=== PATIENT | male | born 1975 | race Hispanic/Latino ===

== ENCOUNTER 2021-12-09 12:25 | Emergency (ER) | payer SELFPAY ==
--- OUTSIDE RECORDS SUMMARY | 2021-12-09 12:36 | XMS REPORT | Continuity of Care Document ---
:1975 Author Organization [facility] t Address [address] [place] [address] [place] [id number] Care Team Providers Name Role Phone SHARPLESS Primary Care Physician Unavailable Radha Alejo RN Attending Clinician Slava oPllard MD Attending Clinician Beatriz Corona LVN Attending Clinician SLAVA POLLARD Attending Clinician Unavailable Marciano Matos MD Attending Clinician Chet Salas DOlor Attending Clinician Leah Meehan MD Attending Clinician Tamir Zuñiga MD Attending Clinician Carissa Betancourt MD Attending Clinician Lamar Randall CRNA Attending Clinician [phone] LJ CRAWFORD Attending Clinician Unavailable Sasha Mcmanus Attending Clinician Polly Leon MD Attending Clinician POLLY LEON Attending Clinician Unavailable Clinic-[facility], Care Transition Attending Clinician Unavailable Service/[place], Surgery C Attending Clinician Unavailable MARCIANO MATOS Attending Clinician Unavailable Lawson Murphy MD Attending Clinician Nakita Broussard DO Attending Clinician Ldiia Del Angel MD Attending Clinician Doctor Unassigned, [place] Attending Clinician Unavailable ADELE HORN Attending Clinician Unavailable Bro WOOD, Chrissy Nazario Attending Clinician Reggie Ryder MD Attending Clinician Brandon BADILLO, Adele Cotton Attending Clinician [phone] Tatiana Chinchilla MD Attending Clinician JONA ABEZ Attending Clinician Unavailable PERSON, SLAVA Admitting Clinician Unavailable Person Slava BADILLO Admitting Clinician MARCIANO MATOS Admitting Clinician Unavailable Marciano Matos MD Admitting Clinician ADELE HORN Admitting Clinician Unavailable Adele Horn MD Admitting Clinician [phone] JONA BAEZ Admitting Clinician Unavailable Problems Condition Condition Condition Status Onset Resolution Last Treating Co mments Source Name Details Category Date Date Treatment Clinician Date Choledocho Choledocho Disease Active U ziaers lithiasis lithiasis 8-03 ity of 00:00: [place] [facility] Cholecysti Cholecysti Disease Active U nivers tis, acute tis, acute 27 it y of 00:00: [place] 00 Medical Branch Coronary Coronary Disease Active Unive rs artery artery 4-11 ity of disease disease 00:00: [place] involving involving 00 Medi eunice coronary coronary Branch bypass bypass graft of graft of [place] heart with heart with angina angina pectoris pectoris Dyslipidem Dyslipidem Disease Active U nivers ia ia 4-11 ity of 00:00: [place] 00 Medical Branch Essential Essential Disease Active Uni vers hypertensi hypertensi 4-11 it y of on on 00:00: [place] 00 Medical Branch 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 Added automatic ally from request for surgery [id number] Tobacco Tobacco Disease Active Univers abuse abuse -22 ity of 00:00: [place] 00 Medical Branch Obesity Obesity Disease Active Univers (BMI (BMI 1-22 ity of 30-39.9) 30-39.9) 00:00: [place] 00 Medical Branch Type 2 Type 2 Disease Active Univers diabetes diabetes 1-22 ity of mellitus mellitus 00:00: [place] with other with other 00 Me dical specified specified Bran ch complicati complicati on on Unstable Unstable Disease Active Unive rs angina angina 1-22 ity of 00:00: [place] 00 Medical Branch Coronary Coronary Disease Active Unive rs artery artery 1-22 ity of disease disease 00:00: [place] involving involving 00 Medi eunice [place] Branch coronary coronary artery of artery of [place] heart with heart with unstable unstable angina angina pectoris pectoris Chest Chest Disease Active Overview: Univer s pain, pain, 1-21 Formattin ity of unspecifie unspecifie 00:00: g of this [place] d type d type 00 note Medical might be Branch different from the original. Added automatic ally from request for surgery [id number] Allergies, Adverse Reactions, Alerts Allergy Allergy Status Severity Reaction(s) Onset Inactive Treating Comm ents Source Name Type Date Date Clinician NO KNOWN Drug Active Univers ALLERGIE Class ity of S [facility] NO KNOWN Allergy Active [facility] Family History Family Member Diagnosis Comments Start Date Stop Date Source Maternal Uncle Diabetes [facility] Social History Social Habit Start Date Stop Date Quantity Comments Source History of Smokes tobacco University of tobacco use daily [facility] Alcohol intake 2021-09-28 2021-09-28 Ex-drinker [facility] 00:00:00 00:00:00 (finding) [facility] Exposure to 2021-09-12 2021-09-22 Not sure [facility] SARS-CoV-2 00:00:00 18:02:00 [facility] (event) [place] Tobacco use and 2021-05-31 2021-05-31 Smokeless tobacco Un iversity of exposure 00:00:00 00:00:00 non-user [facility] Tobacco Comment 2018-03-13 2018-03-13 PATIENT STATED Unive rsity of 00:00:00 00:00:00 WILL QUIT [facility] Sex [birth year] At [birth year] Universit y of 00:00:00 00:00:00 [facility] Smoking Status Start Date Stop Date Source Smokes tobacco daily 2021-05-31 00[facility]00:00 [facility] Ordered Filled Start Stop Current Ordering Indication Dosage Frequency Signature Comments Components Source Medication Medication Date Date Medication? Clinician (SIG) Name Name cyclobenzap Yes [id number] 5mg Take 1 Univers rine 5 mg 8-08 tablet by ity o f tablet 00:00: mouth in [place] the Medical morning Branch and 1 tablet at noon and 1 tablet in the evening. HYDROcodone Yes [id number] 1{tbl} Take 1 Un delfino -acetaminop 8-08 tablet by ity of hen 5-325 00:00: mouth [place] mg tablet 00 every 6 Medical (six) Branch hours as needed for Pain (scale 4-6). Indication s: acute pain cyclobenzap Yes [id number] 5mg Take 1 Univers rine 5 mg 8-08 tablet by ity o f tablet 00:00: mouth in [place] the Medical morning Branch and 1 tablet at noon and 1 tablet in the evening. HYDROcodone Yes [id number] 1{tbl} Take 1 Un [facility]elf[place] -acetaminop 8-08 tablet by ity of hen 5-325 00:00: mouth [place] mg tablet 00 every 6 Medical (six) Branch hours as needed for Pain (scale 4-6). Indication s: acute pain cyclobenzap 2022-0 Yes [id number] 5mg Take 1 Univers rine 5 mg 8-08 tablet by ity o f tablet 00:00: mouth in [place] 00 the Medical morning Branch and 1 tablet at noon and 1 tablet in the evening. HYDROcodone 2022-0 Yes [id number] 1{tbl} Take 1 Un [facility] -acetaminop 8-08 tablet by ity of hen 5-325 00:00: mouth [place] mg tablet 00 every 6 Medical (six) Branch hours as needed for Pain (scale 4-6). Indication s: acute pain cyclobenzap 2022-0 Yes [id number] 5mg Take 1 Univers rine 5 mg 8-08 tablet by ity o f tablet 00:00: mouth in [place] 00 the Medical morning Branch and 1 tablet at noon and 1 tablet in the evening. HYDROcodone 2022-0 Yes [id number] 1{tbl} Take 1 Un [facility]elf[facility] -acetaminop 8-08 tablet by ity of hen 5-325 00:00: mouth [place] mg tablet 00 every 6 Medical (six) Branch hours as needed for Pain (scale 4-6). Indication s: acute pain insulin NPH 2-0 Yes 12U inject 12 U nivers hum/reg 8-07 Units ity of insulin hm 16:51: under the [place] (NOVOLIN 38 skin 2 Medical 70/30 SC) (two) Branch times daily. pantoprazol 2022-0 Yes 40mg Take 40 mg Univers e 8-07 by mouth ity of (PROTONIX) 16:51: daily. [place] 40 mg EC 38 Medical tablet Branch gabapentin 2-0 Yes 600mg Take 600 Un d[place] 600 mg 8-07 mg by ity of tablet 16:51: mouth 2 [place] 38 (two) Medical times Branch daily. insulin NPH 2022-0 Yes 12U inject 12 U nivers hum/reg 8-07 Units ity of insulin hm 16:51: under the [place] (NOVOLIN 38 skin 2 Medical 70/30 SC) (two) Branch times daily. pantoprazol 2022-0 Yes 40mg Take 40 mg Univers e 8-07 by mouth ity of (PROTONIX) 16:51: daily. [place] 40 mg EC 38 Medical tablet Branch gabapentin 2022-0 Yes 600mg Take 600 Un [place] 600 mg 8-07 mg by ity of tablet 16:51: mouth 2 [place] 38 (two) Medical times Branch daily. insulin NPH 2021-0 Yes 12U inject 12 U nivers hum/reg 8-07 Units ity of insulin hm 16:51: under the [place] (NOVOLIN 38 skin 2 Medical 70/30 SC) (two) Branch times daily. pantoprazol 2021-0 Yes 40mg Take 40 mg Univers e 8-07 by mouth ity of (PROTONIX) 16:51: daily. [place] 40 mg EC 38 Medical tablet Branch gabapentin 2021-0 Yes 600mg Take 600 Un d[place] 600 mg 8-07 mg by ity of tablet 16:51: mouth 2 [place] 38 (two) Medical times Branch daily. insulin NPH 2021-0 Yes 12U inject 12 U nivers hum/reg 8-07 Units ity of insulin hm 16:51: under the [place] (NOVOLIN 38 skin 2 Medical 70/30 SC) (two) Branch times daily. pantoprazol 2021-0 Yes 40mg Take 40 mg Univers e 8-07 by mouth ity of (PROTONIX) 16:51: daily. [place] 40 mg EC 38 Medical tablet Branch gabapentin 2021-0 Yes 600mg Take 600 Un [place] 600 mg 8-07 mg by ity of tablet 16:51: mouth 2 [place] 38 (two) Medical times Branch daily. insulin NPH 2021-0 Yes 12U inject 12 U nivers hum/reg 8-07 Units ity of insulin hm 16:51: under the [place] (NOVOLIN 38 skin 2 Medical 70/30 SC) (two) Branch times daily. pantoprazol 2021-0 Yes 40mg Take 40 mg Univers e 8-07 by mouth ity of (PROTONIX) 16:51: daily. [place] 40 mg EC 38 Medical tablet Branch gabapentin 2021-0 Yes 600mg Take 600 Un d[place] 600 mg 8-07 mg by ity of tablet 16:51: mouth 2 [place] 38 (two) Medical times Branch daily. polyethylen 0 2021- No 17g 17 g, Univ ers e glycol 8-07 08-07 Oral, ity of 3350 powder 15:30: 15:14 ONCE, 1 [place] 17 g 00 :00 dose, On Medical 09/27/21 Branch at 1030, Routine acetaminoph 2021-0 Yes [id number] 500mg Take 1 Univers en 500 mg 8-07 tablet by ity o f tablet 00:00: mouth [place] 00 every 6 Medical (six) Branch hours as needed for Pain. cyclobenzap 2021-0 Yes [id number] 5mg Take 1 Univers rine 5 mg 8-07 tablet by ity o f tablet 00:00: mouth in [place] 00 the Medical morning Branch and 1 tablet at noon and 1 tablet in the evening. acetaminoph 2021-0 Yes [id number] 500mg Take 1 Univers en 500 mg 8-07 tablet by ity o f tablet 00:00: mouth [place] 00 every 6 Medical (six) Branch hours as needed for Pain. acetaminoph 2021-0 Yes [id number] 500mg Take 1 Univers en 500 mg 8-07 tablet by ity o f tablet 00:00: mouth [place] 00 every 6 Medical (six) Branch hours as needed for Pain. acetaminoph 2021-0 Yes [id number] 500mg Take 1 Univers en 500 mg 8-07 tablet by ity o f tablet 00:00: mouth [place] 00 every 6 Medical (six) Branch hours as needed for Pain. acetaminoph 2021-0 Yes [id number] 500mg Take 1 Univers en 500 mg 8-07 tablet by ity o f tablet 00:00: mouth [place] 00 every 6 Medical (six) Branch hours as needed for Pain. HYDROcodone 2021- Yes [id number] 1{tbl} Take 1 U nivers -acetaminop 8-07 08-15 tablet by it y of hen 5-325 00:00: 04:59 mouth [place] mg tablet 00 :00 every 6 Medical (six) Branch hours as needed for Pain (scale 4-6) for up to 7 days. Indication s: acute pain HYDROcodone 2021-0 2021- No 4647 1{tbl} Take 1 U nivers -acetaminop 8-07 08-08 tablet by it y of hen 5-325 00:00: 00:00 mouth [place] mg tablet 00 :00 every 6 Medical (six) Branch hours as needed for Pain (scale 4-6) for up to 7 days. Indication s: acute pain cyclobenzap 2021-2021- No [id number] 5mg Take 1 Univers rine 5 mg 8-07 08-08 tablet by ity of tablet 00:00: 00:00 mouth in [place] 00 :00 the Medical morning Branch and 1 tablet at noon and 1 tablet in the evening. lactated 202-0 Yes 1000mL at 75 Univer s ringers IV 8-05 mL/hr, ity of infusion 21:45: 1,000 mL, [place] 1,000 mL 00 IV Medical Infusion, Branch CONTINUOUS , Starting on Tue09/25/21 at 1645, Until Discontinu ed, Routine lactated 2021-0 202- No 1000mL at 75 Unive rs ringers IV 8-05 08-07 mL/hr, ity of infusion 21:45: 23:56 1,000 mL, [place] 1,000 mL 00 :40 IV Medical Infusion, Branch CONTINUOUS , Starting on Tue09/25/21 at 1645, Until Tue09/27/21 at 1856, Routine clopidogreL 2021-0 Yes 75mg 75 mg, Univ ers (PLAVIX) 75 8-05 Oral, ity of mg tablet 20:45: DAILY, [place] 75 mg 00 First dose Medical (after Branch last modificati on) on Tue09/25/21 at 1545, Until Discontinu ed, Routine clopidogreL 2021-0 2021- No 75mg 75 mg, Uni vers (PLAVIX) 75 8-05 08-07 Oral, ity of mg tablet 20:45: 23:56 DAILY, [place] 75 mg 00 :40 First dose Medical (after Branch last modificati on) on Tue09/25/21 at 1545, Until Discontinu ed, Routine D5W 0.45% 2021-0 Yes IV Univers NaCl 8-05 Infusion, ity of (1/2NS) 1 L 18:00: at 75 [place] + KCL 20 00 mL/hr, Medical mEq CONTINUOUS Branch , Starting on Tue09/25/21 at 1300, Until Discontinu ed, Routine D5W 0.45% 2-0 202- No IV Univers NaCl 8-05 08-05 Infusion, ity of (1/2NS) 1 L 18:00: 20:43 at 75 [place] + KCL 20 00 :52 mL/hr, Medical mEq CONTINUOUS Branch , Starting on Tue09/25/21 at 1300, Until Tue09/25/21 at 1543, Routine traMADoL 2021-0 Yes 50mg 50 mg, Univers (ULTRAM) 8-05 Oral, ity of tablet 50 16:47: Q6HPRN, [place] mg 13 Starting Medical on Tue09/25/21 at 1147, Until Discontinu ed, Routine, Pain (scale 7-10) traMADoL Yes 50mg 50 mg, Univers (ULTRAM) 09-25 Oral, ity of tablet 50 16:47: Q6HPRN, [place] mg 13 Starting Medical on Tue09/25/21 at 1147, Until Discontinu ed, Routine, Pain (scale 7-10) traMADoL 2021- No 50mg 50 mg, Univer s (ULTRAM) 09-25 08 Oral, ity of tablet 50 16:47: 23:56 Q6HPRN, [place] mg 13 :40 Starting Medical on Tue09/25/21 at 1147, Until 09/27/21 at 1856, Routine, Pain (scale 7-10) sugammadex 2021- No IV Push, Un [place] (BRIDION) 09-25 ONCE INTRA ity of injection 16:43: 17:00 PROCEDURE, [place] 00 :54 Starting Medical on Tue09/25/21 at 1143, Until Tue09/25/21 at 1200, Routine, Intra-op bupivacaine 2021- No PRN, Unive rs (preserv 09-25 Starting ity of free) 16:33: 17:19 on Tue [place] (SENSORCAIN 00 :59 09/25/21 at Med ical E MPF) 0.25 1133, Branch % (2.5 Until Tue mg/mL) 09/25/21 at injection 1219, Routine, Intra-op phenylephri 2021- No Slow IV Un delfino ne 09-25 Push, ONCE ity of (VAZCULEP) 16:30: 17:00 INTRA [place] injection 00 :54 PROCEDURE, Medi eunice Starting Branch on Tue09/25/21 at 1130, Until Tue09/25/21 at 1200, Routine, Intra-op HYDROmorphO 2021- No Intravenou Univers ne 09-25 s, ONCE ity of (DILAUDID) 14:47: 17:00 INTRA [place] injection 00 :54 PROCEDURE, Medi eunice Starting Branch on Tue09/25/21 at 0947, Until Tue09/25/21 at 1200, Routine, Intra-op ePHEDrine 2021- No Slow IV Univ ers 25 mg/5 mL 09-25 Push, ONCE it y of (5 mg/mL) 14:16: 17:00 INTRA [place] syringe 00 :54 PROCEDURE, Medica l Starting Branch on Tue09/25/21 at 0916, Until Tue09/25/21 at 1200, Routine, Intra-op ondansetron 2021- No Slow IV Un [place]ino (ZOFRAN 09-25 Push, ONCE ity o f (PF)) 14:14: 17:00 INTRA [place] injection 00 :54 PROCEDURE, Medi eunice Starting Branch on Tue09/25/21 at 0914, Until Tue09/25/21 at 1200, Routine, Intra-op dexamethaso 2021- No IV Push, U nivers ne 09-25 ONCE INTRA ity of (DECADRON 14:14: 17:00 PROCEDURE, [place] PHOSPHATE) 00 :54 Starting Medic al injection on Tue Branch 09/25/21 at 0914, Until Tue09/25/21 at 1200, Routine, Intra-op rocuronium 2021- No IV Push, Un [place] (ZEMURON) 09-25 ONCE INTRA ity of injection 14:02: 17:00 PROCEDURE, [place] 00 :54 Starting Medical on Tue Branch 09/25/21 at 0902, Until Tue09/25/21 at 1200, Routine, Intra-op pantoprazol 0 Yes 40mg 40 mg, Univ ers e 8-05 Oral, ity of (PROTONIX) 14:00: DAILY, [place] EC tablet 00 First dose Medi eunice 40 mg on Tue Branch 09/25/21 at 0900, Until Discontinu ed, Routine pantoprazol 2021-0 Yes 40mg 40 mg, Univ ers e 8-05 Oral, ity of (PROTONIX) 14:00: DAILY, [place] EC tablet 00 First dose Medi eunice 40 mg on Tue Branch 09/25/21 at 0900, Until Discontinu ed, Routine pantoprazol 2021- No 40mg 40 mg, Uni vers e 09-25 Oral, ity of (PROTONIX) 14:00: 23:56 DAILY, [place] EC tablet 00 :40 First dose Medi eunice 40 mg on Tue Branch 09/25/21 at 0900, Until Discontinu ed, Routine propofoL IV 2021- No Slow IV Un delf[place] infusion 09-25 Push, ONCE ity of 14:00: 17:00 INTRA [place] 00 :54 PROCEDURE, Medical Starting Branch on Tue09/25/21 at 0900, Until Tue09/25/21 at 1200, Routine, Intra-op lidocaine 2021- No Slow IV Univ ers 1% 09-25 Push, ONCE ity of (XYLOCAINE) 14:00: 17:00 INTRA [place] 100 mg/10 00 :54 PROCEDURE, Medi eunice mL (1 %) Starting Branch injection on Tue09/25/21 at 0900, Until Tue09/25/21 at 1200, Routine, Intra-op FENTanyl PF 2021- No Slow IV [place] (SUBLIMAZE 09-25 Push, ONCE it y of (PF)) 14:00: 17:00 INTRA [place] injection 00 :54 PROCEDURE, Medi eunice Starting Branch on Tue09/25/21 at 0900, Until Tue09/25/21 at 1200, Routine, Intra-op lactated 2021- No Intravenou Un d[place] ringers IV 09-25 s, ity of infusion 13:45: 17:00 CONTINUOUS [place] 00 :54 PRN, Medical Starting Branch on Tue09/25/21 at 0845, Until Tue09/25/21 at 1200, Routine, Intra-op midazolam 2021- No IV Push, Uni vers (VERSED) 09-25 ONCE INTRA ity of injection 13:45: 17:00 PROCEDURE, [place] 00 :54 Starting Medical on Tue Branch 09/25/21 at 0845, Until Tue09/25/21 at 1200, Routine, Intra-op magnesium 2021- No 2g 2 g, IV Univ ers sulfate in 09-24 Piggyback, it y of water 2 23:45: 02:54 Administer [place] gram/50 mL 00 :09 over 60 Medica l (4 %) Minutes, Branch infusion 2 ONCE, 1 g dose, On [place] 09/24/21 at 1845, Routine lactated 2021- No 1000mL at 100 [facility] ers ringers IV 09-24 08-05 mL/hr, ity of infusion 18:15: 16:46 1,000 mL, [place] 1,000 mL 00 :28 IV Medical Infusion, Branch CONTINUOUS , Starting on [place] 09/24/21 at 1315, Until Tue09/25/21 at 1146, Routine Indomethaci 2021- No PRN, [facility] n (INDOCIN) 09-24 Starting ity of suppository 16:35: 17:13 on [place] as 00 :24 09/24/21 at [facility] 1135, Branch Until Tue09/24/21 at 1213, Routine, Intra-op atorvastati Yes 80mg 80 mg, Univ ers n (LIPITOR) 09-24 Oral, QHS, it y of tablet 80 02:00: First dose [place] mg 00 on Tue [facility] 09/23/21 at Branch 2100, Until Discontinu ed, Routine atorvastati Yes 80mg 80 mg, Univ ers n (LIPITOR) 09-24 Oral, QHS, it y of tablet 80 02:00: First dose [place] mg 00 on Tue [facility] 09/23/21 at Branch 2100, Until Discontinu ed, Routine atorvastati 2021- No 80mg 80 mg, Uni vers n (LIPITOR) 09-24 08 Oral, QHS, i ty of tablet 80 02:00: 23:56 First dose [place] mg 00 :40 on Tue [facility] 09/23/21 at Branch 2100, Until Discontinu ed, Routine acetaminoph Yes 500mg 500 mg, Un delfino en 09-24 Oral, ity of (TYLENOL) 00:54: Q6HPRN, [place] tablet 500 19 Starting Medic al mg on Tue [place] 09/23/21 at 1954, Until Discontinu ed, Routine, Pain (scale 1-3) acetaminoph Yes 500mg 500 mg, Un delfino en 8-04 Oral, ity of (TYLENOL) 00:54: Q6HPRN, [place] tablet 500 19 Starting Medic al mg on Wed Branch 09/23/21 at 1954, Until Discontinu ed, Routine, Pain (scale 1-3) acetaminoph 2021-0 2021- No 500mg 500 mg, U nivers en 8 08-07 Oral, ity of (TYLENOL) 00:54: 23:56 Q6HPRN, [place] tablet 500 19 :40 Starting Medic al mg on Tue Branch 09/23/21 at 1954, Until 09/27/21 at 1856, Routine, Pain (scale 1-3) HYDROcodone 2021-0 Yes 1{tbl} 1 tablet, Univers -acetaminop 8-04 Oral, ity of hen (NORCO 00:53: Q6HPRN, [place] 5) 5-325 mg 59 Starting Medi eunice tablet 1 on Wed Branch tablet 09/23/21 at 1953, Until Discontinu ed, Routine, Pain (scale 4-6) HYDROcodone 2021-0 Yes 1{tbl} 1 tablet, Univers -acetaminop 8- Oral, ity of hen (NORCO 00:53: Q6HPRN, [place] 5) 5-325 mg 59 Starting Medi eunice tablet 1 on Wed Branch tablet 09/23/21 at 1953, Until Discontinu ed, Routine, Pain (scale 4-6) HYDROcodone 2021-2021- No 1{tbl} 1 tablet, Univers -acetaminop 8- 0807 Oral, ity of hen (NORCO 00:53: 23:56 Q6HPRN, [place] 5) 5-325 mg 59 :40 Starting Medi eunice tablet 1 on Wed Branch tablet 09/23/21 at 1953, Until 09/27/21 at 1856, Routine, Pain (scale 4-6) morpHINE (2 2021-0 Yes 4mg 4 mg, Slow Univers mg/mL) 8-03 IV Push, ity of injection 4 21:20: Q4HPRN, [place] mg 39 Starting Medical on Tue Branch 09/23/21 at 1620, Until Discontinu ed, Routine, Pain (scale 4-6), Pain (scale 7-10) morpHINE (2 2021-0 Yes 4mg 4 mg, Slow Univers mg/mL) 09-23 IV Push, ity of injection 4 21:20: Q4HPRN, [place] mg 39 Starting Medical on Tue [place] 09/23/21 at 1620, Until Discontinu ed, Routine, Pain (scale 4-6), Pain (scale 7-10) morpHINE (2 2021- No 4mg 4 mg, Slow Univers mg/mL) 09-23 IV Push, ity of injection 4 21:20: 23:56 Q4HPRN, [place] mg 39 :40 Starting Medical on Tue [place] 09/23/21 at 1620, Until 09/27/21 at 1856, Routine, Pain (scale 4-6), Pain (scale 7-10) aspirin 2021-0 Yes 81mg 81 mg, Univers chewable 09-23 Oral, ity of tablet 81 14:00: DAILY, [place] mg 00 First dose Medical on Tue [place] 09/23/21 at 0900, Until Discontinu ed, Routine spironolact 2021-0 Yes 12.5mg 12.5 mg, Univers one 09-23 Oral, ity of (ALDACTONE) 14:00: DAILY, [place] tablet 12.5 00 First dose Me dical mg on Tue09/23/21 at 0900, Until Discontinu ed, Routine aspirin 2021-0 Yes 243mg 243 mg, Univer s chewable 09-23 Oral, ity of tablet 243 14:00: DAILY, [place] mg 00 First dose Medical on Tue [place] 09/23/21 at 0900, Until Discontinu ed, Routine aspirin 2021-0 Yes 81mg 81 mg, Univers chewable 09-23 Oral, ity of tablet 81 14:00: DAILY, [place] mg 00 First dose Medical on Tue [place] 09/23/21 at 0900, Until Discontinu ed, Routine spironolact 2021-0 Yes 12.5mg 12.5 mg, Univers one 09-23 Oral, ity of (ALDACTONE) 14:00: DAILY, [place] tablet 12.5 00 First dose Me dical mg on Tue [place] 09/23/21 at 0900, Until Discontinu ed, Routine aspirin 2021-0 2021- No 81mg 81 mg, Univers chewable 09-23- Oral, ity of tablet 81 14:00: 23:56 DAILY, [place] mg 00 :40 First dose Medical on [facility] 09/23/21 at 0900, Until Discontinu ed, Routine spironolact 2021- No 12.5mg 12.5 mg, Univers one 09-23 Oral, ity of (ALDACTONE) 14:00: 23:56 DAILY, [place] tablet 12.5 00 :40 First dose Me dical mg on [facility] 09/23/21 at 0900, Until Discontinu ed, Routine gabapentin Yes 600mg 600 mg, Uni vers (NEURONTIN) 09-23 Oral, BID, it y of tablet 600 13:00: First dose [place] mg 00 on [facility] 09/23/21 at Branch 0800, Until Discontinu ed, Routine carvediloL Yes 3.125mg 3.125 mg, Univers (COREG) 09-23 Oral, BID ity of tablet 13:00: MEALS, [place] 3.125 mg 00 First dose Medic al on [facility] 09/23/21 at 0800, Until Discontinu ed, Routine gabapentin Yes 600mg 600 mg, Uni vers (NEURONTIN) 09-23 Oral, BID, it y of tablet 600 13:00: First dose [place] mg 00 on [facility] 09/23/21 at Branch 0800, Until Discontinu ed, Routine carvediloL Yes 3.125mg 3.125 mg, Univers (COREG) 09-23 Oral, BID ity of tablet 13:00: MEALS, [place] 3.125 mg 00 First dose Medic al on [facility] 09/23/21 at 0800, Until Discontinu ed, Routine gabapentin 2021- No 600mg 600 mg, Un delfino (NEURONTIN) 09-23 Oral, BID, i ty of tablet 600 13:00: 23:56 First dose [place] mg 00 :40 on [facility] 09/23/21 at Branch 0800, Until Discontinu ed, Routine carvediloL 2021- No 3.125mg 3.125 mg, Univers (COREG) 09-23 Oral, BID ity of tablet 13:00: 23:56 MEALS, [place] 3.125 mg 00 :40 First dose Medic al on [facility] 09/23/21 at 0800, Until Discontinu ed, Routine Sliding 2022-0 Yes Subcutaneo Univ ers Scale 8-03 us, Q6H, ity of Insulin - 11:00: First dose [place] Lispro 00 on Tue Medical (HumaLOG) + 09/23/21 at [facility] 0600, Testing Until Discontinu ed, Routine methocarbam 202-0 Yes 1000mg 1,000 mg, Univers oL 09-23 Intravenou ity of (ROBAXIN) 11:00: s, Q8H, [place] injection 00 First dose Medi eunice 1,000 mg on Tue Branch 09/23/21 at 0600, Until Discontinu ed, Routine Sliding 2021-0 Yes Subcutaneo Univ ers Scale 8-03 us, Q6H, ity of Insulin - 11:00: First dose [place] Lispro 00 on Tue Medical (HumaLOG) + 09/23/21 at [facility] 0600, Testing Until Discontinu ed, Routine methocarbam 0 Yes 1000mg 1,000 mg, Univers oL 09-23 Intravenou ity of (ROBAXIN) 11:00: s, Q8H, [place] injection 00 First dose Medi eunice 1,000 mg on Tue Branch 09/23/21 at 0600, Until Discontinu ed, Routine Sliding 2021-0 202- No Subcutaneo Uni vers Scale 09-23 08-07 us, Q6H, ity of Insulin - 11:00: 23:56 First dose [place] Lispro 00 :40 on Tue Medical (HumaLOG) + 09/23/21 at [facility] 0600, Testing Until Discontinu ed, Routine methocarbam 0 202- No 1000mg 1,000 mg, Univers oL 09-23 Intravenou ity of (ROBAXIN) 11:00: 23:56 s, Q8H, [place] 00 :40 First dose Medi eunice 1,000 mg on Tue Branch 09/23/21 at 0600, Until Discontinu ed, Routine acetaminoph 2021-0 2021- No 1000mg 1,000 mg, Univers en ADULT 09-23 IV ity of (OFIRMEV) 11:00: 00:54 Infusion, [place] injection 00 :42 at 400 Medical 1,000 mg mL/hr Branch Administer over 15 Minutes, Q8H, 3 doses, First dose on Tue09/23/21 at 0600, Last dose on Tue09/23/21 at 2200, Routine
Indicatio n: Perioperat cong Patient lactated 1000mL at 125 Univ ers ringers IV 09-23 0804 mL/hr, ity of infusion 08:00: 18:03 1,000 mL, [place] 1,000 mL 00 :04 IV Medical Infusion, Branch CONTINUOUS , Starting on Tue09/23/21 at 0300, Until Laurita 09/24/21 at 1303, Routine pantoprazol No 40mg 40 mg, Uni vers e 09-23 Slow IV ity of (PROTONIX) 07:45: 22:36 Push, [place] injection 00 :36 Q24H, 3 Medical 40 mg doses, Branch First dose on Tue09/23/21 at 0245, Last dose on Tue09/25/21 at 0245 glucagon Yes 1mg 1 mg, Univers (GLUCAGEN 09-23 Intramuscu ity of DIAGNOSTIC 07:34: lar, PRN, [place] KIT) 41 Starting Medical injection 1 on Tue Branch mg 09/23/21 at 0234, Until Discontinu ed, DOMINIQUE, Blood Glucose < or = 70 mg/dL and patient is unable to swallow or has mental changes. glucagon Yes 1mg 1 mg, Univers (GLUCAGEN 09-23 Intramuscu ity of DIAGNOSTIC 07:34: lar, PRN, [place] KIT) 41 Starting Medical injection 1 on Tue Branch mg 09/23/21 at 0234, Until Discontinu ed, DOMINIQUE, Blood Glucose < or = 70 mg/dL and patient is unable to swallow or has mental changes. glucagon 2021- No 1mg 1 mg, Univers (GLUCAGEN 09-23 0807 Intramuscu ity of DIAGNOSTIC 07:34: 23:56 lar, PRN, [place] KIT) 41 :40 Starting Medical injection 1 on Tue Branch mg 09/23/21 at 0234, Until 09/27/21 at 1856, DOMINIQUE, Blood Glucose < or = 70 mg/dL and patient is unable to swallow or has mental changes. dextrose 50 0 Yes 25mL 25 mL, Univ ers % in water 09-23 Slow IV ity of (D50W) 07:34: Push, PRN, [place] injection 40 Starting Medica l 25 mL on Wed Branch 09/23/21 at 0234, Until Discontinu ed, DOMINIQUE, Blood Glucose < or = 70 mg/dL and patient is unable to swallow or has mental status changes. dextrose 50 0 Yes 25mL 25 mL, Univ ers % in water 09-23 Slow IV ity of (D50W) 07:34: Push, PRN, [place] injection 40 Starting Medica l 25 mL on Wed Branch 09/23/21 at 0234, Until Discontinu ed, DOMINIQUE, Blood Glucose < or = 70 mg/dL and patient is unable to swallow or has mental status changes. dextrose 50 2021- No 25mL 25 mL, Uni vers % in water 09-23 Slow IV ity o f (D50W) 07:34: 23:56 Push, PRN, [place] injection 40 :40 Starting Medica l 25 mL on Wed Branch 09/23/21 at 0234, Until 09/27/21 at 1856, DOMINIQUE, Blood Glucose < or = 70 mg/dL and patient is unable to swallow or has mental status changes. pantoprazol 2021- No 40mg 40 mg, Uni vers e 09-23 Slow IV ity of (PROTONIX) 07:15: 16:26 Push, [place] injection 00 :00 Q24H, 3 Medical 40 mg doses, Branch First dose on Tue09/23/21 at 0215, Last dose on Tue09/25/21 at 0215 morpHINE (2 2021- No 2mg 2 mg, Slow Univers mg/mL) 09-23 IV Push, ity of injection 2 06:57: 21:20 Q4HPRN, [place] mg 38 :57 Starting Medical on Tue Branch 09/23/21 at 0157, Until Tue09/23/21 at 1620, Routine, Pain (scale 4-6) ondansetron Yes 4mg 4 mg, Slow Univers (ZOFRAN 8-03 IV Push, ity of (PF)) 06:56: Q6HPRN, [place] injection 4 51 Starting Medi eunice mg on Wed Branch 09/23/21 at 0156, Until Discontinu ed, Routine, Nausea and Vomiting (N/V) ondansetron 2-0 Yes 4mg 4 mg, Slow Univers (ZOFRAN 8-03 IV Push, ity of (PF)) 06:56: Q6HPRN, [place] injection 4 51 Starting Medi eunice mg on Wed Branch 09/23/21 at 0156, Until Discontinu ed, Routine, Nausea and Vomiting (N/V) ondansetron 2022-0 2022- No 4mg 4 mg, Slow Univers (ZOFRAN 8-03 08-07 IV Push, ity of (PF)) 06:56: 23:56 Q6HPRN, [place] injection 4 51 :40 Starting Medi eunice mg on Wed Branch 09/23/21 at 0156, Until 09/27/21 at 1856, Routine, Nausea and Vomiting (N/V) insulin NPH 2021-0 Yes 12U inject 12 U nivers hum/reg 8-03 Units ity of insulin hm 06:24: under the [place] (NOVOLIN 41 skin 2 Medical 70/30 SC) (two) Branch times daily. pantoprazol 2021-0 Yes 40mg Take 40 mg Univers e 8-03 by mouth ity of (PROTONIX) 06:24: daily. [place] 40 mg EC 41 Medical tablet Branch gabapentin 2021-0 Yes 600mg Take 600 Un delfino 600 mg 8-03 mg by ity of tablet 06:24: mouth 2 [place] 41 (two) Medical times Branch daily. insulin NPH 2-0 Yes 12U inject 12 U nivers hum/reg 8-03 Units ity of insulin hm 06:24: under the [place] (NOVOLIN 41 skin 2 Medical 70/30 SC) (two) Branch times daily. pantoprazol 2-0 Yes 40mg Take 40 mg Univers e 8-03 by mouth ity of (PROTONIX) 06:24: daily. [place] 40 mg EC 41 Medical tablet Branch gabapentin 2022-0 Yes 600mg Take 600 Un delfino 600 mg 8-03 mg by ity of tablet 06:24: mouth 2 [place] 41 (two) Medical times Branch daily. insulin NPH Yes 12U inject 12 U nivers hum/reg 8-03 Units ity of insulin hm 06:24: under the [place] (NOVOLIN 41 skin 2 Medical 70/30 SC) (two) Branch times daily. pantoprazol Yes 40mg Take 40 mg Univers e 03 by mouth ity of (PROTONIX) 06:24: daily. [place] 40 mg EC 41 Medical tablet Branch gabapentin Yes 600mg Take 600 Un delfino 600 mg 8-03 mg by ity of tablet 06:24: mouth 2 [place] 41 (two) Medical times Branch daily. NaCl 0.9% 2021- No 500mL at 999 Univ ers (NS) bolus 09-23 mL/hr, 500 it y of infusion 04:15: 04:00 mL, IV [place] 500 mL 00 :00 Infusion, Medical ONCE, 1 Branch dose, On Tue09/22/21 at 2315, STAT magnesium 2021- No 2g 2 g, IV Univ ers sulfate in 09-23 Piggyback, it y of water 2 01:15: 01:22 Administer [place] gram/50 mL 00 :00 over 60 Medica l (4 %) Minutes, Branch infusion 2 ONCE, 1 g dose, On Tue09/22/21 at 2015, Routine NaCl 0.9% 2021- No 500mL at 999 Univ ers (NS) bolus 09-23 mL/hr, 500 it y of infusion 01:00: 01:20 mL, IV [place] 500 mL 00 :00 Infusion, Medical ONCE, 1 Branch dose, On Tue09/22/21 at 1999, STAT nitroglycer 2021- No .4mg 0.4 mg, Un delfino in 09-23 Sublingual ity of (NITROSTAT) 01:00: 23:30 , ONCE, 1 [place] sublingual 00 :00 dose, On Medic al tablet 0.4 Tue09/22/21 Bra nch mg at 1999, DOMINIQUE ondansetron 2021- No 4mg 4 mg, Slow Univers (ZOFRAN 09-23 IV Push, ity of (PF)) 00:45: 23:40 ONCE, 1 [place] injection 4 00 :00 dose, On Medi eunice mg Tue09/22/21 Branch at 194, DOMINIQUE morpHINE (2 2021- No 4mg 4 mg, Slow Univers mg/mL) 09-23 IV Push, ity of injection 4 00:45: 23:40 ONCE, 1 [place] mg 00 :00 dose, On Medical Tue09/22/21 Branch at 194, STAT piperacilli 2021- No 3.375g 3.375 g, Univers n-tazobacta 09-23 IV ity of m (ZOSYN) 00:15: 01:16 Piggyback, [place] 3.375 g in 00 :48 ONCE, 1 Medica l NaCl 0.9% dose, On Branch (NS) 50 mL Tue09/22/21 MINI-BAG at 191, Administer over 30 Minutes, 50 mL
R francesca for Anti-Infec tive: Documented Infection< br>Documen nhi Infection Site: Abdominal< br>Duratio n of Therapy: Other (see Comments) acetaminoph 2021- No 1000mg 1,000 mg, Univers en 09-23 Oral, ity of (TYLENOL) 00:00: 00:42 ONCE, 1 [place] tablet 00 :00 dose, On Medical 1,000 mg Tue09/22/21 Branc h at 1900, DOMINIQUE insulin NPH Yes 12U inject 12 U nivers hum/reg 4-30 Units ity of insulin hm 12:17: under the [place] (NOVOLIN 07 skin 2 Medical 70/30 SC) (two) Branch times daily. pantoprazol Yes 40mg Take 40 mg Univers e 4-30 by mouth ity of (PROTONIX) 12:17: daily. [place] 40 mg EC 07 Medical tablet Branch gabapentin Yes 600mg Take 600 Un [place] 600 mg 4-30 mg by ity of tablet 12:17: mouth 2 [place] 07 (two) Medical times Branch daily. insulin NPH Yes 12U inject 12 U nivers hum/reg 4-30 Units ity of insulin hm 12:17: under the [place] (NOVOLIN 07 skin 2 Medical 70/30 SC) (two) Branch times daily. pantoprazol 2022-0 Yes 40mg Take 40 mg Univers e 4-30 by mouth ity of (PROTONIX) 12:17: daily. [place] 40 mg EC 07 Medical tablet Branch gabapentin 2022-0 Yes 600mg Take 600 Un [place] 600 mg 4-30 mg by ity of tablet 12:17: mouth 2 (two) Medical times Branch daily. insulin NPH 2022-0 Yes 12U inject 12 U nivers hum/reg 4-30 Units ity of insulin hm 12:17: under the [place] (NOVOLIN 07 skin 2 Medical 70/30 SC) (two) Branch times daily. pantoprazol 2022-0 Yes 40mg Take 40 mg Univers e 4-30 by mouth ity of (PROTONIX) 12:17: daily. [place] 40 mg EC 07 Medical tablet Branch gabapentin 2-0 Yes 600mg Take 600 Un [place] 600 mg 4-30 mg by ity of tablet 12:17: mouth 2 (two) Medical times Branch daily. insulin NPH 2022-0 Yes 12U inject 12 U nivers hum/reg 4-30 Units ity of insulin hm 12:17: under the [place] (NOVOLIN 07 skin 2 Medical 70/30 SC) (two) Branch times daily. pantoprazol 2022-0 Yes 40mg Take 40 mg Univers e 4-30 by mouth ity of (PROTONIX) 12:17: daily. [place] 40 mg EC 07 Medical tablet Branch gabapentin 2-0 Yes 600mg Take 600 Un [place] 600 mg 4-30 mg by ity of tablet 12:17: mouth 2 (two) Medical times Branch daily. insulin NPH 2022-0 Yes 12U inject 12 U nivers hum/reg 4-30 Units ity of insulin hm 12:17: under the [place] (NOVOLIN 07 skin 2 Medical 70/30 SC) (two) Branch times daily. pantoprazol 2022-0 Yes 40mg Take 40 mg Univers e 4-30 by mouth ity of (PROTONIX) 12:17: daily. [place] 40 mg EC 07 Medical tablet Branch gabapentin 2022-0 Yes 600mg Take 600 Un [place] 600 mg 4-30 mg by ity of tablet 12:17: mouth 2 (two) Medical times Branch daily. insulin NPH 2022-0 Yes 12U inject 12 U nivers hum/reg 4-30 Units ity of insulin hm 12:17: under the [place] (NOVOLIN 07 skin 2 Medical 70/30 SC) (two) Branch times daily. pantoprazol 2022-0 Yes 40mg Take 40 mg Univers e 4-30 by mouth ity of (PROTONIX) 12:17: daily. [place] 40 mg EC 07 Medical tablet Branch gabapentin 2021-0 Yes 600mg Take 600 Un [place] 600 mg 4-30 mg by ity of tablet 12:17: mouth 2 [place] 07 (two) Medical times Branch daily. insulin NPH 2021-0 Yes 12U inject 12 U nivers hum/reg 4-30 Units ity of insulin hm 12:17: under the [place] (NOVOLIN 07 skin 2 Medical 70/30 SC) (two) Branch times daily. pantoprazol 2022-0 Yes 40mg Take 40 mg Univers e 4-30 by mouth ity of (PROTONIX) 12:17: daily. [place] 40 mg EC 07 Medical tablet Branch gabapentin 2021-0 Yes 600mg Take 600 Un [place] 600 mg 4-30 mg by ity of tablet 12:17: mouth 2 [place] 07 (two) Medical times Branch daily. insulin NPH 2021-0 Yes 12U inject 12 U nivers hum/reg 4-30 Units ity of insulin hm 12:17: under the [place] (NOVOLIN 07 skin 2 Medical 70/30 SC) (two) Branch times daily. pantoprazol 2-0 Yes 40mg Take 40 mg Univers e 4-30 by mouth ity of (PROTONIX) 12:17: daily. [place] 40 mg EC 07 Medical tablet Branch gabapentin 2-0 Yes 600mg Take 600 Un [place] 600 mg 4-30 mg by ity of tablet 12:17: mouth 2 [place] 07 (two) Medical times Branch daily. acetaminoph 2021-0 2021- No [id number] 650mg Take 2 Univers en 325 mg 4-30 05-11 tablets by ity of tablet 00:00: 04:59 mouth [place] 00 :00 every 6 Medical (six) Branch hours as needed for Pain (scale 1-3) for up to 10 days. acetaminoph 202-0 2021- No [id number] 650mg Take 2 Univers en 325 mg 4-30 05-11 tablets by ity of tablet 00:00: 04:59 mouth [place] 00 :00 every 6 Medical (six) Branch hours as needed for Pain (scale 1-3) for up to 10 days. amoxicillin 2021- No [id number] 1{tbl} Take 1 Univers -clavulanat 4-30 05-05 tablet by it y of e 875-125 00:00: 04:59 mouth [place] mg per 00 :00 every 12 Medical tablet (twelve) Branch hours for 4 days. amoxicillin 2021- No [id number] 1{tbl} Take 1 Univers -clavulanat 4-30 05-05 tablet by it y of e 875-125 00:00: 04:59 mouth [place] mg per 00 :00 every 12 Medical tablet (twelve) Branch hours for 4 days. aspirin 81 2021- No [id number] 81mg Take 1 Univers mg chewable 4-16 10-14 tablet by it y of tablet 00:00: 04:59 mouth [place] 00 :00 daily for Medical 180 days. Branch lisinopriL 2021- No [id number] 2.5mg Take 1 Univers 2.5 mg 4-16 10-14 tablet by ity of tablet 00:00: 04:59 mouth [place] 00 :00 daily for Medical 180 days. Branch spironolact 2021- No [id number] 12.5mg Take 0.5 Univers one 25 mg 4-16 10-14 tablets by ity of tablet 00:00: 04:59 mouth [place] 00 :00 daily for Medical 180 days. Branch aspirin 81 2021- No [id number] 81mg Take 1 Univers mg chewable 4-16 10-14 tablet by it y of tablet 00:00: 04:59 mouth [place] 00 :00 daily for Medical 180 days. Branch lisinopriL 2021- No [id number] 2.5mg Take 1 Univers 2.5 mg 4-16 10-14 tablet by ity of tablet 00:00: 04:59 mouth [place] 00 :00 daily for Medical 180 days. Branch spironolact 2021- No [id number] 12.5mg Take 0.5 Univers one 25 mg 4-16 10-14 tablets by ity of tablet 00:00: 04:59 mouth [place] 00 :00 daily for Medical 180 days. [place] aspirin 81 2021- No [id number] 81mg Take 1 Univers mg chewable 4-16 10-14 tablet by it y of tablet 00:00: 04:59 mouth [place] 00 :00 daily for Medical 180 days. [place] lisinopriL 2021- No [id number] 2.5mg Take 1 Univers 2.5 mg 4-16 10-14 tablet by ity of tablet 00:00: 04:59 mouth [place] 00 :00 daily for Medical 180 days. [place] spironolact 2021- No [id number] 12.5mg Take 0.5 Univers one 25 mg 4-16 10-14 tablets by ity of tablet 00:00: 04:59 mouth [place] 00 :00 daily for Medical 180 days. [place] aspirin 81 2021- No [id number] 81mg Take 1 Univers mg chewable 4-16 10-14 tablet by it y of tablet 00:00: 04:59 mouth [place] 00 :00 daily for Medical 180 days. [place] lisinopriL 2021- No [id number] 2.5mg Take 1 Univers 2.5 mg 4-16 10-14 tablet by ity of tablet 00:00: 04:59 mouth [place] 00 :00 daily for Medical 180 days. [place] spironolact 2021- No [id number] 12.5mg Take 0.5 Univers one 25 mg 4-16 10-14 tablets by ity of tablet 00:00: 04:59 mouth [place] 00 :00 daily for Medical 180 days. [place] aspirin 81 2021- No [id number] 81mg Take 1 Univers mg chewable 4-16 10-14 tablet by it y of tablet 00:00: 04:59 mouth [place] 00 :00 daily for Medical 180 days. Branch lisinopriL 2021- No [id number] 2.5mg Take 1 Univers 2.5 mg 4-16 10-14 tablet by ity of tablet 00:00: 04:59 mouth [place] 00 :00 daily for Medical 180 days. [place] spironolact 2021- No [id number] 12.5mg Take 0.5 Univers one 25 mg 4-16 10-14 tablets by ity of tablet 00:00: 04:59 mouth [place] 00 :00 daily for Medical 180 days. [place] aspirin 81 2021- No [id number] 81mg Take 1 Univers mg chewable 4-16 10-14 tablet by it y of tablet 00:00: 04:59 mouth [place] 00 :00 daily for Medical 180 days. [place] lisinopriL 2021- No [id number] 2.5mg Take 1 Univers 2.5 mg 4-16 10-14 tablet by ity of tablet 00:00: 04:59 mouth [place] 00 :00 daily for Medical 180 days. [place] spironolact 2021- No [id number] 12.5mg Take 0.5 Univers one 25 mg 4-16 10-14 tablets by ity of tablet 00:00: 04:59 mouth [place] 00 :00 daily for Medical 180 days. [place] aspirin 81 2021- No [id number] 81mg Take 1 Univers mg chewable 4-16 10-14 tablet by it y of tablet 00:00: 04:59 mouth [place] 00 :00 daily for Medical 180 days. [place] lisinopriL 2021- No [id number] 2.5mg Take 1 Univers 2.5 mg 4-16 10-14 tablet by ity of tablet 00:00: 04:59 mouth [place] 00 :00 daily for Medical 180 days. [place] spironolact 2021- No [id number] 12.5mg Take 0.5 Univers one 25 mg 4-16 10-14 tablets by ity of tablet 00:00: 04:59 mouth [place] 00 :00 daily for Medical 180 days. [place] aspirin 81 2021- No [id number] 81mg Take 1 Univers mg chewable 4-16 10-14 tablet by it y of tablet 00:00: 04:59 mouth [place] 00 :00 daily for Medical 180 days. Branch lisinopriL 2021- No [id number] 2.5mg Take 1 Univers 2.5 mg 4-16 10-14 tablet by ity of tablet 00:00: 04:59 mouth [place] 00 :00 daily for Medical 180 days. [place] spironolact 2021- No [id number] 12.5mg Take 0.5 Univers one 25 mg 4-16 10-14 tablets by ity of tablet 00:00: 04:59 mouth [place] 00 :00 daily for Medical 180 days. [place] aspirin 81 2021- No [id number] 81mg Take 1 Univers mg chewable 4-16 10-14 tablet by it y of tablet 00:00: 04:59 mouth [place] 00 :00 daily for Medical 180 days. [place] lisinopriL 2021- No [id number] 2.5mg Take 1 Univers 2.5 mg 4-16 10-14 tablet by ity of tablet 00:00: 04:59 mouth [place] 00 :00 daily for Medical 180 days. [place] spironolact 2021- No [id number] 12.5mg Take 0.5 Univers one 25 mg 4-16 10-14 tablets by ity of tablet 00:00: 04:59 mouth [place] 00 :00 daily for Medical 180 days. [place] aspirin 81 2021- No [id number] 81mg Take 1 Univers mg chewable 4-16 10-14 tablet by it y of tablet 00:00: 04:59 mouth [place] 00 :00 daily for Medical 180 days. [place] lisinopriL 2021- No [id number] 2.5mg Take 1 Univers 2.5 mg 4-16 10-14 tablet by ity of tablet 00:00: 04:59 mouth [place] 00 :00 daily for Medical 180 days. [place] spironolact 2021- No [id number] 12.5mg Take 0.5 Univers one 25 mg 4-16 10-14 tablets by ity of tablet 00:00: 04:59 mouth [place] 00 :00 daily for Medical 180 days. [place] aspirin 81 2021- No [id number] 81mg Take 1 Univers mg chewable 4-16 10-14 tablet by it y of tablet 00:00: 04:59 mouth [place] 00 :00 daily for Medical 180 days. Branch lisinopriL 2021- No [id number] 2.5mg Take 1 Univers 2.5 mg 4-16 10-14 tablet by ity of tablet 00:00: 04:59 mouth [place] 00 :00 daily for Medical 180 days. [place] spironolact 2021- No [id number] 12.5mg Take 0.5 Univers one 25 mg 4-16 10-14 tablets by ity of tablet 00:00: 04:59 mouth [place] 00 :00 daily for Medical 180 days. [place] aspirin 81 2021- No [id number] 81mg Take 1 Univers mg chewable 4-16 10-14 tablet by it y of tablet 00:00: 04:59 mouth [place] 00 :00 daily for Medical 180 days. [place] lisinopriL 2021- No [id number] 2.5mg Take 1 Univers 2.5 mg 4-16 10-14 tablet by ity of tablet 00:00: 04:59 mouth [place] 00 :00 daily for Medical 180 days. [place] spironolact 2021- No [id number] 12.5mg Take 0.5 Univers one 25 mg 4-16 10-14 tablets by ity of tablet 00:00: 04:59 mouth [place] 00 :00 daily for Medical 180 days. [place] aspirin 81 2021- No [id number] 81mg Take 1 Univers mg chewable 4-16 10-14 tablet by it y of tablet 00:00: 04:59 mouth [place] 00 :00 daily for Medical 180 days. [place] lisinopriL 2021- No [id number] 2.5mg Take 1 Univers 2.5 mg 4-16 10-14 tablet by ity of tablet 00:00: 04:59 mouth [place] 00 :00 daily for Medical 180 days. [place] spironolact 2021- No [id number] 12.5mg Take 0.5 Univers one 25 mg 4-16 10-14 tablets by ity of tablet 00:00: 04:59 mouth [place] 00 :00 daily for Medical 180 days. [place] aspirin 81 2021- No [id number] 81mg Take 1 Univers mg chewable 4-16 10-14 tablet by it y of tablet 00:00: 04:59 mouth [place] 00 :00 daily for Medical 180 days. Branch lisinopriL 2021- No [id number] 2.5mg Take 1 Univers 2.5 mg 4-16 10-14 tablet by ity of tablet 00:00: 04:59 mouth [place] 00 :00 daily for Medical 180 days. [place] spironolact 2021- No [id number] 12.5mg Take 0.5 Univers one 25 mg 4-16 10-14 tablets by ity of tablet 00:00: 04:59 mouth [place] 00 :00 daily for Medical 180 days. Branch aspirin 81 2021- No [id number] 81mg Take 1 Univers mg chewable 4-16 10-14 tablet by it y of tablet 00:00: 04:59 mouth [place] 00 :00 daily for Medical 180 days. Branch lisinopriL 2021- No [id number] 2.5mg Take 1 Univers 2.5 mg 4-16 10-14 tablet by ity of tablet 00:00: 04:59 mouth [place] 00 :00 daily for Medical 180 days. Branch spironolact 2021- No [id number] 12.5mg Take 0.5 Univers one 25 mg 4-16 10-14 tablets by ity of tablet 00:00: 04:59 mouth [place] 00 :00 daily for Medical 180 days. [place] aspirin 81 2021- No [id number] 81mg Take 1 Univers mg chewable 4-16 10-14 tablet by it y of tablet 00:00: 04:59 mouth [place] 00 :00 daily for Medical 180 days. [place] lisinopriL 2021- No [id number] 2.5mg Take 1 Univers 2.5 mg 4-16 10-14 tablet by ity of tablet 00:00: 04:59 mouth [place] 00 :00 daily for Medical 180 days. [place] spironolact 2021- No [id number] 12.5mg Take 0.5 Univers one 25 mg 4-16 10-14 tablets by ity of tablet 00:00: 04:59 mouth [place] 00 :00 daily for Medical 180 days. Branch atorvastati 2021- No [id number] 80mg Take 1 Univers n 80 mg 4-15 10-13 tablet by ity of tablet 00:00: 04:59 mouth at [place] 00 :00 bedtime Medical for 180 Branch days. carvediloL 2021- No [id number] 3.125mg Take 1 Univers 3.125 mg 4-15 10-13 tablet by ity o f tablet 00:00: 04:59 mouth 2 [place] 00 :00 (two) Medical times [place] daily with meals for 180 days. atorvastati 2021- No [id number] 80mg Take 1 Univers n 80 mg 4-15 10-13 tablet by ity of tablet 00:00: 04:59 mouth at [place] 00 :00 bedtime Medical for 180 Branch days. carvediloL 2021- No [id number] 3.125mg Take 1 Univers 3.125 mg 4-15 10-13 tablet by ity o f tablet 00:00: 04:59 mouth 2 [place] 00 :00 (two) Medical times [place] daily with meals for 180 days. atorvastati 2021- No [id number] 80mg Take 1 Univers n 80 mg 4-15 10-13 tablet by ity of tablet 00:00: 04:59 mouth at [place] 00 :00 bedtime Medical for 180 Branch days. carvediloL 2021- No [id number] 3.125mg Take 1 Univers 3.125 mg 4-15 10-13 tablet by ity o f tablet 00:00: 04:59 mouth 2 [place] 00 :00 ([facility]) Medical times [place] daily with meals for 180 days. atorvastati 2021- No [id number] 80mg Take 1 Univers n 80 mg 4-15 10-13 tablet by ity of tablet 00:00: 04:59 mouth at [place] 00 :00 bedtime Medical for 180 Branch days. carvediloL 2021- No [id number] 3.125mg Take 1 Univers 3.125 mg 4-15 10-13 tablet by ity o f tablet 00:00: 04:59 mouth 2 [place] 00 :00 ([facility]) Medical times [place] daily with meals for 180 days. atorvastati 2021- No [id number] 80mg Take 1 Univers n 80 mg 4-15 10-13 tablet by ity of tablet 00:00: 04:59 mouth at [place] 00 :00 bedtime Medical for 180 Branch days. carvediloL 2021- No [id number] 3.125mg Take 1 Univers 3.125 mg 4-15 10-13 tablet by ity o f tablet 00:00: 04:59 mouth 2 [place] 00 :00 (two) Medical times [place] daily with meals for 180 days. atorvastati 2021- No [id number] 80mg Take 1 Univers n 80 mg 4-15 10-13 tablet by ity of tablet 00:00: 04:59 mouth at [place] 00 :00 bedtime Medical for 180 Branch days. carvediloL 2021- No [id number] 3.125mg Take 1 Univers 3.125 mg 4-15 10-13 tablet by ity o f tablet 00:00: 04:59 mouth 2 [place] 00 :00 (two) Medical times [place] daily with meals for 180 days. atorvastati 2021- No [id number] 80mg Take 1 Univers n 80 mg 4-15 10-13 tablet by ity of tablet 00:00: 04:59 mouth at [place] 00 :00 bedtime Medical for 180 Branch days. carvediloL 2021- No [id number] 3.125mg Take 1 Univers 3.125 mg 4-15 10-13 tablet by ity o f tablet 00:00: 04:59 mouth 2 [place] 00 :00 ([facility]) Medical times [place] daily with meals for 180 days. atorvastati 2021- No [id number] 80mg Take 1 Univers n 80 mg 4-15 10-13 tablet by ity of tablet 00:00: 04:59 mouth at [place] 00 :00 bedtime Medical for 180 Branch days. carvediloL 2021- No [id number] 3.125mg Take 1 Univers 3.125 mg 4-15 10-13 tablet by ity o f tablet 00:00: 04:59 mouth 2 [place] 00 :00 (two) Medical times [place] daily with meals for 180 days. atorvastati 2021- No [id number] 80mg Take 1 Univers n 80 mg 4-15 10-13 tablet by ity of tablet 00:00: 04:59 mouth at [place] 00 :00 bedtime Medical for 180 Branch days. carvediloL 2021- No [id number] 3.125mg Take 1 Univers 3.125 mg 4-15 10-13 tablet by ity o f tablet 00:00: 04:59 mouth 2 [place] 00 :00 (two) Medical times [place] daily with meals for 180 days. atorvastati 2021- No [id number] 80mg Take 1 Univers n 80 mg 4-15 10-13 tablet by ity of tablet 00:00: 04:59 mouth at [place] 00 :00 bedtime Medical for 180 Branch days. carvediloL 2021- No [id number] 3.125mg Take 1 Univers 3.125 mg 4-15 10-13 tablet by ity o f tablet 00:00: 04:59 mouth 2 [place] 00 :00 ([facility]) Medical times [place] daily with meals for 180 days. atorvastati 2021- No [id number] 80mg Take 1 Univers n 80 mg 4-15 10-13 tablet by ity of tablet 00:00: 04:59 mouth at [place] 00 :00 bedtime Medical for 180 Branch days. carvediloL 2021- No [id number] 3.125mg Take 1 Univers 3.125 mg 4-15 10-13 tablet by ity o f tablet 00:00: 04:59 mouth 2 [place] 00 :00 ([facility]) Medical times [place] daily with meals for 180 days. atorvastati 2021- No [id number] 80mg Take 1 Univers n 80 mg 4-15 10-13 tablet by ity of tablet 00:00: 04:59 mouth at [place] 00 :00 bedtime Medical for 180 Branch days. carvediloL 2021- No [id number] 3.125mg Take 1 Univers 3.125 mg 4-15 10-13 tablet by ity o f tablet 00:00: 04:59 mouth 2 [place] 00 :00 ([facility]) [facility] times [place] daily with meals for 180 days. atorvastati 2021- No [id number] 80mg Take 1 Univers n 80 mg 4-15 10-13 tablet by ity of tablet 00:00: 04:59 mouth at [place] 00 :00 bedtime Medical for 180 Branch days. carvediloL No [id number] 3.125mg Take 1 Univers 3.125 mg 4-15 10-13 tablet by ity o f tablet 00:00: 04:59 mouth 2 [place] 00 :00 (two) Medical times [place] daily with meals for 180 days. atorvastati 2021- No [id number] 80mg Take 1 Univers n 80 mg 4-15 10-13 tablet by ity of tablet 00:00: 04:59 mouth at [place] 00 :00 bedtime Medical for 180 Branch days. carvediloL 2021- No [id number] 3.125mg Take 1 Univers 3.125 mg 4-15 10-13 tablet by ity o f tablet 00:00: 04:59 mouth 2 [place] 00 :00 (two) Medical times [place] daily with meals for 180 days. atorvastati 2021- No [id number] 80mg Take 1 Univers n 80 mg 4-15 10-13 tablet by ity of tablet 00:00: 04:59 mouth at [place] 00 :00 bedtime Medical for 180 Branch days. carvediloL 2021- No [id number] 3.125mg Take 1 Univers 3.125 mg 4-15 10-13 tablet by ity o f tablet 00:00: 04:59 mouth 2 [place] 00 :00 (two) Medical times [place] daily with meals for 180 days. atorvastati 2021- No [id number] 80mg Take 1 Univers n 80 mg 4-15 10-13 tablet by ity of tablet 00:00: 04:59 mouth at [place] 00 :00 bedtime Medical for 180 Branch days. carvediloL 2021- No [id number] 3.125mg Take 1 Univers 3.125 mg 4-15 10-13 tablet by ity o f tablet 00:00: 04:59 mouth 2 [place] 00 :00 (two) Medical times [place] daily with meals for 180 days. nitroglycer 2021- No [id number] .4mg Place 1 Univers in 0.4 mg 4-15 05-16 tablet ity of sublingual 00:00: 04:59 under the [place] tablet 00 :00 tongue Medical every 5 Branch (five) minutes as needed for Chest pain for up to 30 days. nitroglycer 2021- No [id number] .4mg Place 1 Univers in 0.4 mg 4-15 05-16 tablet ity of sublingual 00:00: 04:59 under the [place] tablet 00 :00 tongue Medical every 5 Branch (five) minutes as needed for Chest pain for up to 30 days. metformin Yes [id number] 750mg Take 1 U nivers ER 750 mg 2-12 tablet by ity o f 24 hr 00:00: mouth [place] tablet 00 daily with Medical breakfast. Branch metformin Yes [id number] 750mg Take 1 U nivers ER 750 mg 2-12 tablet by ity o f 24 hr 00:00: mouth [place] tablet 00 daily with Medical breakfast. Branch metformin 2018-0 Yes [id number] 750mg Take 1 U nivers ER 750 mg 2-12 tablet by ity o f 24 hr 00:00: mouth [place] tablet 00 daily with Medical breakfast. Branch metformin 2018-0 Yes [id number] 750mg Take 1 U nivers ER 750 mg 2-12 tablet by ity o f 24 hr 00:00: mouth [place] tablet 00 daily with Medical breakfast. Branch metformin 2018- Yes [id number] 750mg Take 1 U nivers ER 750 mg 2-12 tablet by ity o f 24 hr 00:00: mouth [place] tablet 00 daily with Medical breakfast. Branch metformin 2018- Yes [id number] 750mg Take 1 U nivers ER 750 mg 2-12 tablet by ity o f 24 hr 00:00: mouth [place] tablet 00 daily with Medical breakfast. Branch metformin 2018- Yes [id number] 750mg Take 1 U nivers ER 750 mg 2-12 tablet by ity o f 24 hr 00:00: mouth [place] tablet 00 daily with Medical breakfast. Branch metformin 2018- Yes [id number] 750mg Take 1 U nivers ER 750 mg 2-12 tablet by ity o f 24 hr 00:00: mouth [place] tablet 00 daily with Medical breakfast. Branch metformin 2018-0 Yes [id number] 750mg Take 1 U nivers ER 750 mg 2-12 tablet by ity o f 24 hr 00:00: mouth [place] tablet 00 daily with Medical breakfast. Branch metformin 2018-0 Yes [id number] 750mg Take 1 U nivers ER 750 mg 2-12 tablet by ity o f 24 hr 00:00: mouth [place] tablet 00 daily with Medical breakfast. Branch metformin 2018-0 Yes [id number] 750mg Take 1 U nivers ER 750 mg 2-12 tablet by ity o f 24 hr 00:00: mouth [place] tablet 00 daily with Medical breakfast. Branch metformin 2018-0 Yes [id number] 750mg Take 1 U nivers ER 750 mg 2-12 tablet by ity o f 24 hr 00:00: mouth [place] tablet 00 daily with Medical breakfast. Branch metformin 2018-0 Yes [id number] 750mg Take 1 U nivers ER 750 mg 2-12 tablet by ity o f 24 hr 00:00: mouth [place] tablet 00 daily with Medical breakfast. Branch metformin 2018-0 Yes [id number] 750mg Take 1 U nivers ER 750 mg 2-12 tablet by ity o f 24 hr 00:00: mouth [place] tablet 00 daily with Medical breakfast. Branch metformin 2019-0 Yes [id number] 750mg Take 1 U nivers ER 750 mg 2-12 tablet by ity o f 24 hr 00:00: mouth [place] tablet 00 daily with Medical breakfast. Branch metformin 2019-0 Yes [id number] 750mg Take 1 U nivers ER 750 mg 2-12 tablet by ity o f 24 hr 00:00: mouth [place] tablet 00 daily with Medical breakfast. Branch clopidogrel 2019-0 Yes [id number] 75mg Take 1 Univers 75 mg 1-31 tablet by ity of tablet 00:00: mouth [place] 00 daily. Medical Branch clopidogrel 2019-0 Yes [id number] 75mg Take 1 Univers 75 mg 1-31 tablet by ity of tablet 00:00: mouth [place] 00 daily. Medical Branch clopidogrel 2019-0 Yes [id number] 75mg Take 1 Univers 75 mg 1-31 tablet by ity of tablet 00:00: mouth [place] 00 daily. Medical Branch clopidogrel 2019-0 Yes [id number] 75mg Take 1 Univers 75 mg 1-31 tablet by ity of tablet 00:00: mouth [place] 00 daily. Medical Branch clopidogrel 2019-0 Yes [id number] 75mg Take 1 Univers 75 mg 1-31 tablet by ity of tablet 00:00: mouth [place] 00 daily. Medical Branch clopidogrel 2019-0 Yes [id number] 75mg Take 1 Univers 75 mg 1-31 tablet by ity of tablet 00:00: mouth [place] 00 daily. Medical Branch clopidogrel 2019-0 Yes [id number] 75mg Take 1 Univers 75 mg 1-31 tablet by ity of tablet 00:00: mouth [place] 00 daily. Medical Branch clopidogrel 2019-0 Yes [id number] 75mg Take 1 Univers 75 mg 1-31 tablet by ity of tablet 00:00: mouth [place] 00 daily. Medical Branch clopidogrel 2019-0 Yes [id number] 75mg Take 1 Univers 75 mg 1-31 tablet by ity of tablet 00:00: mouth [place] 00 daily. [facility] Branch clopidogrel 2019-0 Yes [id number] 75mg Take 1 Univers 75 mg 1-31 tablet by ity of tablet 00:00: mouth [place] 00 daily. Medical Branch clopidogrel 2019-0 Yes [id number] 75mg Take 1 Univers 75 mg 1-31 tablet by ity of tablet 00:00: mouth [place] 00 daily. [facility] clopidogrel 2019-0 Yes [id number] 75mg Take 1 Univers 75 mg 1-31 tablet by ity of tablet 00:00: mouth [place] 00 daily. [facility] clopidogrel 2019-0 Yes [id number] 75mg Take 1 Univers 75 mg 1-31 tablet by ity of tablet 00:00: mouth [place] 00 daily. [facility] clopidogrel 2019-0 Yes [id number] 75mg Take 1 Univers 75 mg 1-31 tablet by ity of tablet 00:00: mouth [place] 00 daily. [facility] clopidogrel 2019-0 Yes [id number] 75mg Take 1 Univers 75 mg 1-31 tablet by ity of tablet 00:00: mouth [place] 00 daily. [facility] clopidogrel 2019-0 Yes [id number] 75mg Take 1 Univers 75 mg 1-31 tablet by ity of tablet 00:00: mouth [place] 00 daily. [facility] Immunizations Ordered Filled Immunization Date Status Comments [facility] e Immunization Name Name SARS-COV-2 COVID-19 2020-05-07 Completed Unive rsity of OLVIN/J&J VACCINE 00:00:00 [facility] SARS-COV-2 COVID-19 2020-05-07 Completed Unive rsity of OLVIN/J&J VACCINE 00:00:00 [facility] SARS-COV-2 COVID-19 2020-05-07 Completed Unive rsity of OLVIN/J&J VACCINE 00:00:00 [facility] SARS-COV-2 COVID-19 2020-05-07 Completed Unive rsity of OLVIN/J&J VACCINE 00:00:00 [facility] SARS-COV-2 COVID-19 2020-05-07 Completed Unive rsity of OLVIN/J&J VACCINE 00:00:00 [facility] SARS-COV-2 COVID-19 2020-05-07 Completed Unive rsity of OLVIN/J&J VACCINE 00:00:00 [facility] SARS-COV-2 COVID-19 2020-05-07 Completed Unive rsity of OLVIN/J&J VACCINE 00:00:00 [facility] SARS-COV-2 COVID-19 2020-05-07 Completed Unive rsity of OLVIN/J&J VACCINE 00:00:00 [facility] SARS-COV-2 COVID-19 2020-05-07 Completed Unive rsity of OLVIN/J&J VACCINE 00:00:00 [facility] SARS-COV-2 COVID-19 2020-05-07 Completed Unive rsity of OLVIN/J&J VACCINE 00:00:00 [facility] SARS-COV-2 COVID-19 2020-05-07 Completed Unive rsity of OLVIN/J&J VACCINE 00:00:00 [facility] SARS-COV-2 COVID-19 2020-05-07 Completed Unive rsity of OLVIN/J&J VACCINE 00:00:00 [facility] SARS-COV-2 COVID-19 2020-05-07 Completed Unive rsity of OLVIN/J&J VACCINE 00:00:00 [facility] SARS-COV-2 COVID-19 2020-05-07 Completed Unive rsity of OLVIN/J&J VACCINE 00:00:00 [facility] SARS-COV-2 COVID-19 2020-05-07 Completed Unive rsity of OLVIN/J&J VACCINE 00:00:00 [facility] SARS-COV-2 COVID-19 2020-05-07 Completed Unive rsity of OLVIN/J&J VACCINE 00:00:00 [facility] Vital Signs Vital Name Observation Time Observation Value Comments Source Systolic blood 2021-09-27 16:10:00 114 mm[Hg] Univer sity of pressure [facility] Diastolic blood 2021-09-27 16:10:00 64 mm[Hg] Unive rsity of pressure [facility] Heart rate 2021-09-27 16:10:00 76 /min [facility] Body temperature 2021-09-27 16:10:00 36 Stefany [facility] Oxygen saturation in 2021-09-27 16:10:00 95 /min [facility] Arterial blood by [facility] Pulse oximetry Branch Respiratory rate 2021-09-27 10:09:00 16 /min [facility] Body weight 2021-09-23 06:30:00 81.647 kg [facility] BMI 2021-09-23 06:30:00 30.90 kg/m2 [facility] Systolic blood 2021-09-25 13:00:00 117 mm[Hg] Univer sity of pressure [facility] Diastolic blood 2021-09-25 13:00:00 73 mm[Hg] Unive rsity of pressure [place] [facility] Heart rate 2021-09-25 13:00:00 81 /min [facility] [place] [facility] Body temperature 2021-09-25 13:00:00 36.67 Stefany Univ ers[facility] [place] [facility] Respiratory rate 2021-09-25 13:00:00 16 /min Univ ers[facility] [place] [facility] Oxygen saturation in 2021-09-25 13:00:00 97 /min University of Arterial blood by [facility] eunice Pulse oximetry Branch Body weight 2021-09-23 06:30:00 81.647 kg [facility]i [facility] [place] [facility] BMI 2021-09-23 06:30:00 30.90 kg/m2 [facility] [place] [facility] Systolic blood 2021-09-24 19:00:00 128 mm[Hg] Univer sity of pressure [place] [facility] Diastolic blood 2021-09-24 19:00:00 76 mm[Hg] Unive rsity of pressure [place] [facility] Heart rate 2021-09-24 19:00:00 78 /min [facility] [place] [facility] Respiratory rate 2021-09-24 19:00:00 9 /min Univ ersity of [place] [facility] Oxygen saturation in 2021-09-24 19:00:00 96 /min University of Arterial blood by [facility] Pulse oximetry Branch Body temperature 2021-09-24 17:09:00 36.11 Stefany Univ ersity [facility] [place] [facility] Body weight 2021-09-23 06:30:00 81.647 kg [facility] [place] [facility] BMI 2021-09-23 06:30:00 30.90 kg/m2 [facility] [place] [facility] Heart rate 2021-09-23 05:11:00 85 /min [facility] [place] [facility] Respiratory rate 2021-09-23 05:11:00 13 /min Univ ersity [facility] [place] [facility] Oxygen saturation in 2021-09-23 05:11:00 95 /min University of Arterial blood by [facility] eunice Pulse oximetry Branch Systolic blood 2021-09-23 05:01:00 92 mm[Hg] Univer sity of pressure [place] [facility] Diastolic blood 2021-09-23 05:01:00 54 mm[Hg] Unive rsity of pressure [place] [facility] Body temperature 2021-09-23 04:09:00 37 Stefany Univ ersity of [facility] Branch Body height 2021-09-22 23:09:00 162.6 cm Universi ty of [place] [facility] Body weight 2021-09-22 23:09:00 81.647 kg Universi ty of [place] [facility] BMI 2021-09-22 23:09:00 30.90 kg/m2 Universi ty of [facility] Branch Systolic blood 2021-06-23 16:18:00 104 mm[Hg] Univer sity of pressure [place] [facility] Diastolic blood 2021-06-23 16:18:00 70 mm[Hg] Unive rsity of pressure [facility] Branch Heart rate 2021-06-23 16:18:00 66 /min Universi ty of [facility] Body temperature 2021-06-23 16:18:00 36.67 Stefany Univ ersity of [facility] Branch Body height 2021-06-23 16:18:00 162.6 cm Universi ty of [facility] Branch Body weight 2021-06-23 16:18:00 80.831 kg Universi ty of [place] [facility] BMI 2021-06-23 16:18:00 30.59 kg/m2 Universi ty of [facility] Branch Oxygen saturation in 2021-06-23 16:18:00 97 /min University of Arterial blood by [place] [facility] eunice Pulse oximetry Branch Systolic blood 2021-09-24 17:09:00 133 mm[Hg] Univer sity of pressure [facility] Diastolic blood 2021-09-24 17:09:00 76 mm[Hg] Unive rsity of pressure [facility] Heart rate 2021-09-24 17:09:00 71 /min Universi ty of [facility] Branch Body temperature 2021-09-24 17:09:00 36.11 Stefany Univ ersity of [facility] Branch Respiratory rate 2021-09-24 17:09:00 16 /min Univ ersity of [facility] Branch Oxygen saturation in 2021-09-24 17:09:00 95 /min University of Arterial blood by [place] [employer] eunice Pulse oximetry Branch Body weight 2021-09-23 06:30:00 81.647 kg Universi ty of [facility] Branch BMI 2021-09-23 06:30:00 30.90 kg/m2 [facility] [place] [facility] Body height 2021-09-22 23:09:00 162.6 cm Universi of [facility] Procedures Procedure Date / Time Performing Source Performed Clinician POCT GLUCOSE (AUTOMATED) 2021-09-27 Person, Slava Univers ity of 13:13:00 [facility] POCT GLUCOSE (AUTOMATED) 2021-09-27 Person, Slava Univers ity of 13:13:00 [facility] PHOSPHORUS 2021-09-27 Nelly Weaver [place] of 11:29:00 [facility] MAGNESIUM 2021-09-27 Owen, [facility] of 11:29:00 [facility] HEPATIC FUNCTION PANEL ([id number]) 2021-09-27 [facility] ([facility]B,T.PRO,BILI 11:29:00 Kye [place] [facility] T,BU/BC,ALT,AST,ALK PHOS) Branch BASIC METABOLIC PANEL (NA, K, 2021-09-27 Nelly Weaver Un iversity of CL, CO2, GLUCOSE, BUN, 11:29:00 [facility]AT[facility], [place]) Branch CBC WITH DIFF 2021-09-27 [facility] of 11:29:00 [facility] PHOSPHORUS 2021-09-27 Nelly Weaver [place] of 11:29:00 [facility] MAGNESIUM 2021-09-27 Owen, [facility] of 11:29:00 [facility] HEPATIC FUNCTION PANEL ([id number]) 2021-09-27 [facility] of (ALB,T.PRO,BILI 11:29:00 Kye [place] [facility] T,BU/BC,ALT,AST,ALK PHOS) Branch BASIC METABOLIC PANEL (NA, K, 2021-09-27 Nelly Weaver Un iversity of CL, CO2, GLUCOSE, BUN, 11:29:00 [facility]AT[facility] [place]) Branch CBC WITH DIFF 2021-09-27 [facility] of 11:29:00 [facility] POCT GLUCOSE (AUTOMATED) 2021-09-27 Person, Slava Univers ity of 11:21:00 [facility] POCT GLUCOSE (AUTOMATED) 2021-09-27 Person, Slava Univers ity of 11:21:00 [facility] POCT GLUCOSE (AUTOMATED) 2021-09-26 Person, Slava Univers ity of 22:47:00 [facility] POCT GLUCOSE (AUTOMATED) 2021-09-26 Person, Slava Univers ity of 22:47:00 [facility] POCT GLUCOSE (AUTOMATED) 2021-09-26 Person, Slava Univers ity of 20:58:00 [facility] POCT GLUCOSE (AUTOMATED) 2021-09-26 Person, Slava Univers ity of 20:58:00 [facility] POCT GLUCOSE (AUTOMATED) 2021-09-26 Person, Slava Univers ity of 16:41:00 [facility] POCT GLUCOSE (AUTOMATED) 2021-09-26 Person, Slava Univers ity of 16:41:00 [facility] POCT GLUCOSE (AUTOMATED) 2021-09-26 Person, Slava Univers ity of 12:57:00 [facility] POCT GLUCOSE (AUTOMATED) 2021-09-26 Person, Slava Univers ity of 12:57:00 [facility] POCT GLUCOSE (AUTOMATED) 2021-09-26 Person, Slava Univers ity of 10:58:00 [facility] POCT GLUCOSE (AUTOMATED) 2021-09-26 Person, Slava Univers ity of 10:58:00 [facility] PHOSPHORUS 2021-09-26 Nelly Weaver [place] of 10:56:00 [facility] MAGNESIUM 2021-09-26 Nelly Weaver [place] of 10:56:00 [facility] HEPATIC FUNCTION PANEL ([id number]) 2021-09-26 Nelly Weaver niversity of (ALB,T.PRO,BILI 10:56:00 [facility],BU/BC,ALT,AST,ALK PHOS) Branch BASIC METABOLIC PANEL (NA, K, 2021-09-26 Nelly Weaver iversity of CL, CO2, GLUCOSE, BUN, 10:56:00 [facility] ical CREATININE, CA) Branch CBC WITHOUT DIFF 2021-09-26 Nelly Weaver [place] of 10:56:00 [facility] PHOSPHORUS 2021-09-26 Nelly Weaver [place] of 10:56:00 [facility] MAGNESIUM 2021-09-26 OwenNelly ryan [place] of 10:56:00 [facility] HEPATIC FUNCTION PANEL ([id number]) 2021-09-26 Nelly Weaver niversity of (ALB,T.PRO,BILI 10:56:00 [facility] ([place],BU/BC,ALT,AST,ALK PHOS) Branch BASIC METABOLIC PANEL (NA, K, 2021-09-26 Nelly Weaver iversity of CL, CO2, GLUCOSE, BUN, 10:56:00 [facility] ical CREATININE, CA) Branch CBC WITHOUT DIFF 2021-09-26 Nelly Weaver [place] of 10:56:00 [facility] POCT GLUCOSE (AUTOMATED) 2021-09-26 Person, Slava Univers ity of 04:43:00 [facility] POCT GLUCOSE (AUTOMATED) 2021-09-26 Person, Slava Univers ity of 04:43:00 [facility] POCT GLUCOSE (AUTOMATED) 2021-09-25 Person, Slava Univers ity of 22:56:00 [facility] POCT GLUCOSE (AUTOMATED) 2021-09-25 Person, Slava Univers ity of 22:56:00 [facility] POCT GLUCOSE (AUTOMATED) 2021-09-25 Demola, Marciano Univers ity of 17:01:00 [facility] POCT GLUCOSE (AUTOMATED) 2021-09-25 Demola, Marciano Univers ity of 17:01:00 [facility] POCT GLUCOSE (AUTOMATED) 2021-09-25 Demola, Marciano Univers ity of 17:01:00 [facility] INTUBATION 2021-09-25 Tom Martinez [place] of 14:05:00 [facility] LAPAROSCOPIC CHOLECYSTECTOMY 2021-09-25 Person, Slava Uni versity of 13:31:00 [facility] HB ABO GROUPING 2021-09-25 [facility] 13:12:00 Kye [facility] HB ABO GROUPING 2021-09-25 [facility] 13:12:00 [facility] HB ABO GROUPING 2021-09-25 [facility] 13:12:00 [facility] COVID-19 (ID NOW RAPID TESTING) 2021-09-25 Romina Lewis [facility] 10:28:00 [facility] LAB ONLY COVID INTERPRETATION 2021-09-25 [facility] 10:28:00 [facility] COVID-19 (ID NOW RAPID TESTING) 2021-09-25 Debbie [facility] 10:28:00 [facility] LAB ONLY COVID INTERPRETATION 2021-09-25 [facility] 10:28:00 [facility] COVID-19 (ID NOW RAPID TESTING) [facility] LAB ONLY [facility]PRETATION [facility] 10:28[facility] PHOSPHORUS 2021-09-25 Owen [facility] 10:16:00 [facility] LIPASE [facility]-09-[facility] 10:16[facility] MAGNESIUM 2021-09-25 [facility] 10:16:00 [facility] TROPONIN I 2021-09-25 Mitali [facility] 10:16:00 [facility] HEPATIC FUNCTION PANEL ([id number]) 2021-09-25 Nelly Weaver U niversity of (ALB,T.PRO,BILI 10:16:00 [facility] T,BU/BC,ALT,AST,ALK PHOS) Branch BASIC METABOLIC PANEL (NA, K, 2021-09-25 Nelly Weaver Un iversity of CL, CO2, GLUCOSE, BUN, 10:16:00 [facility] ical CREATININE, CA) Branch CBC WITHOUT DIFF 2021-09-25 Nelly Weaver [facility] 10:16:00 [facility] PHOSPHORUS 2021-09-25 Owen [facility] 10:16:00 [facility] LIPASE 2021-09-25 Nelly Weaver [place] of 10:16:00 [facility] MAGNESIUM 2021-09-25 Nelly Weaver [place] of 10:16:00 [facility] TROPONIN I 2021-09-25 Mitali [facility] of 10:16:00 [facility] HEPATIC FUNCTION PANEL ([id number]) 2021-09-25 Nelly Weaver niversity of (ALB,T.PRO,BILI 10:16:00 [facility] T,BU/BC,ALT,AST,ALK PHOS) Branch BASIC METABOLIC PANEL (NA, K, 2021-09-25 Nelly Weaver Un iversity of CL, CO2, GLUCOSE, BUN, 10:16:00 [facility] ical CREATININE, CA) Branch CBC WITHOUT DIFF 2021-09-25 Nelly Weaver [facility] 10:16:00 [facility] PHOSPHORUS 2021-09-25 Nelly Weaver [facility] 10:16:00 [facility] LIPASE 2021-09-25 [facility] of 10:16:00 [facility] MAGNESIUM 2021-09-25 Nelly Weaver [place] of 10:16:00 [facility] TROPONIN I 2021-09-25 Carmine [facility] of 10:16:00 [facility] HEPATIC FUNCTION PANEL ([id number]) 2021-09-25 Nelly Weaver niversity of (ALB,T.PRO,BILI 10:16:00 [facility] T,BU/BC,ALT,AST,ALK PHOS) Branch BASIC METABOLIC PANEL (NA, K, 2021-09-25 Nelly Weaver Un iversity of CL, CO2, GLUCOSE, BUN, 10:16:00 [facility] ical CREATININE, [place]) Branch CBC WITHOUT DIFF 2021-09-25 Nelly Weaver [place] of 10:16:00 [facility] POCT GLUCOSE (AUTOMATED) 2021-09-25 Marciano Matos of 10:15:00 [facility] POCT GLUCOSE (AUTOMATED) 2021-09-25 Demsandy Marciano Univers ity of 10:15:00 [facility] POCT GLUCOSE (AUTOMATED) 2021-09-25 Demola, Marciano Univers ity of 10:15:00 [facility] POCT GLUCOSE (AUTOMATED) 2021-09-25 Demsandy, Marciano Univers ity of 05:01:00 [facility] POCT GLUCOSE (AUTOMATED) 2021-09-25 Demsandy, Marciano Univers ity of 05:01:00 [facility] POCT GLUCOSE (AUTOMATED) 2021-09-25 Demola, Marciano Univers ity of 05:01:00 [facility] POCT GLUCOSE (AUTOMATED) 2021-09-25 Demsandy, Marciano Univers ity of 02:22:00 [facility] POCT GLUCOSE (AUTOMATED) 2021-09-25 Shawna Marciano Univers ity of 02:22:00 [facility] POCT GLUCOSE (AUTOMATED) 2021-09-25 Shawna Marciano Univers ity of 02:22:00 [facility] CBC WITH DIFF 2021-09-25 [facility] 01:15:00 [facility] CBC WITH DIFF 2021-09-25 Berry Gandhi, [place] of 01:15:00 [facility] CBC WITH DIFF 2021-09-25 Berry Gandhi, [place] of 01:15:00 [facility] POCT GLUCOSE (AUTOMATED) 2021-09-24 Sena Matosa Univers ity of 22:31:00 [facility] POCT GLUCOSE (AUTOMATED) 2021-09-24 Shawna Marciano Univers ity of 22:31:00 [facility] POCT GLUCOSE (AUTOMATED) 2021-09-24 Shawna, Marciano Univers ity of 22:31:00 [facility] CBC WITH DIFF 2021-09-24 Libby Garcia [facility] of 20:38:00 [facility] [facility] CBC WITH DIFF 2021-09-24 Jose Libby [facility] of 20:38:00 [facility] CBC WITH DIFF 2021-09-24 Jose Libby [facility] of 20:38:00 [facility] POCT GLUCOSE (AUTOMATED) 2021-09-24 Shawna Marciano [facility] ity of 17:12:00 [facility] POCT GLUCOSE (AUTOMATED) 2021-09-24 Sena Matosa [facility] ity of 17:12:00 [facility] POCT GLUCOSE (AUTOMATED) 2021-09-24 Shawna Marciano [facility] ity of 17:12:00 [facility] POCT GLUCOSE (AUTOMATED) 2021-09-24 [facility] of 17:12:00 [facility] ENDOSCOPIC RETROGRADE 2021-09-24 [facility] of CHOLANGIOPANCRETOGRAPHY 15:32:00 [facility] 2021-09-24 [facility] of CHOLANGIOPANCRETOGRAPHY 15:32:00 [facility] ERCP (ENDO) 2021-09-24 [facility] of 15:18:28 [facility] ERCP (ENDO) 2021-09-24 [facility] of 15:18:28 [facility] ERCP (ENDO) 2021-09-24 [facility] of 15:18:28 [facility] ERCP (ENDO) 2021-09-24 [facility] of 15:18:28 [facility] PHOSPHORUS 2021-09-24 Nelly Weaver of 10:46:00 [facility] MAGNESIUM 2021-09-24 Nelly Weaver [place] of 10:46:00 [facility] HEPATIC FUNCTION PANEL ([id number]) 2021-09-24 Nelly Weaver niversity of (ALB,T.PRO,BILI 10:46:00 [facility] T,BU/BC,ALT,AST,ALK PHOS) Branch BASIC METABOLIC PANEL (NA, K, 2021-09-24 Nelly Weaver iversity of CL, CO2, GLUCOSE, BUN, 10:46:00 [facility] ical CREATININE, CA) Branch CBC WITHOUT DIFF 2021-09-24 Nelly Weaver of 10:46:00 [facility] PHOSPHORUS 2021-09-24 Nelly Weaver of 10:46:00 [facility] MAGNESIUM 2021-09-24 Nelly Weaver [place] of 10:46:00 [facility] HEPATIC FUNCTION PANEL ([id number]) 2021-09-24 Nelly Weaver niversity of (ALB,T.PRO,BILI 10:46:00 [facility] T,BU/BC,ALT,AST,ALK PHOS) Branch BASIC METABOLIC PANEL (NA, K, 2021-09-24 Nelly Weaver Un iversity of CL, CO2, GLUCOSE, BUN, 10:46:00 [facility] ical CREATININE, CA) Branch CBC WITHOUT DIFF 2021-09-24 Nelly Weaver of 10:46:00 [facility] CBC WITHOUT DIFF 2021-09-24 Nelly Weaver [place] of 10:46:00 [facility] BASIC METABOLIC PANEL (NA, K, 2021-09-24 Nelly Weaver Un iversity of CL, CO2, GLUCOSE, BUN, 10:46:00 [facility] ical CREATININE, CA) Branch MAGNESIUM 2021-09-24 Nelly Weaver of 10:46:00 [facility] PHOSPHORUS 2021-09-24 Nelly Weaver [place] of 10:46:00 [facility] HEPATIC FUNCTION PANEL ([id number]) 2021-09-24 Nelly Weaver niversity of (ALB,T.PRO,BILI 10:46:00 [facility] T,BU/BC,ALT,AST,ALK PHOS) Branch PHOSPHORUS 2021-09-24 Nelly Weaver of 10:46:00 [facility] MAGNESIUM 2021-09-24 Nelly Weaver [place] of 10:46:00 [facility] HEPATIC FUNCTION PANEL ([id number]) 2021-09-24 Nelly Weaver niversity of (ALB,T.PRO,BILI 10:46:00 [facility] T,BU/BC,ALT,AST,ALK PHOS) Branch BASIC METABOLIC PANEL (NA, K, 2021-09-24 Nelly Weaver iversity of CL, CO2, GLUCOSE, BUN, 10:46:00 [facility] ical CREATININE, CA) Branch CBC WITHOUT DIFF 2021-09-24 Nelly Weaver [place] of 10:46:00 [facility] POCT GLUCOSE (AUTOMATED) 2021-09-24 Shawna Marciano [facility] ity of 10:45:00 [facility] POCT GLUCOSE (AUTOMATED) 2021-09-24 Demsandy, Marciano Univers ity of 10:45:00 [facility] POCT GLUCOSE (AUTOMATED) 2021-09-24 Demola, Marciano [facility] ity of 10:45:00 [facility] POCT GLUCOSE (AUTOMATED) 2021-09-24 Demsandy, Marciano Univers ity of 10:45:00 [facility] POCT GLUCOSE (AUTOMATED) 2021-09-24 Shawna, Marciano [facility] ity of 04:28:00 [facility] POCT GLUCOSE (AUTOMATED) 2021-09-24 Shawna Marciano [facility] ity of 04:28:00 [facility] POCT GLUCOSE (AUTOMATED) 2021-09-24 Demsandy, Marciano [facility] ity of 04:28:00 [facility] POCT GLUCOSE (AUTOMATED) 2021-09-24 Demsandy, Marciano Univers ity of 04:28:00 [facility] POCT GLUCOSE (AUTOMATED) 2021-09-23 Shawna, Marciano [facility] ity of 22:10:00 [facility] POCT GLUCOSE (AUTOMATED) 2021-09-23 Demsandy, Marciano [facility] ity of 22:10:00 [facility] POCT GLUCOSE (AUTOMATED) 2021-09-23 Demsandy, Marciano Univers ity of 22:10:00 [facility] POCT GLUCOSE (AUTOMATED) 2021-09-23 Demola, Marciano [facility] ity of 22:10:00 [facility] POCT GLUCOSE (AUTOMATED) 2021-09-23 Demsandy, Marciano Univers ity of 17:28:00 [facility] POCT GLUCOSE (AUTOMATED) 2021-09-23 Shawna, Marciano [facility] ity of 17:28:00 [facility] POCT GLUCOSE (AUTOMATED) 2021-09-23 Sena Matosa [facility] ity of 17:28:00 [facility] POCT GLUCOSE (AUTOMATED) 2021-09-23 Sena Matosa [facility] ity of 17:28:00 [facility] POCT GLUCOSE (AUTOMATED) 2021-09-23 Sena Matosa [facility] ity of 10:50:00 [facility] POCT GLUCOSE (AUTOMATED) 2021-09-23 Sena Matosa [facility] ity of 10:50:00 [facility] POCT GLUCOSE (AUTOMATED) 2021-09-23 Shawna, Marciano [facility] ity of 10:50:00 [facility] POCT GLUCOSE (AUTOMATED) 2021-09-23 Marciano Matos [facility] ity of 10:50:00 [facility] CBC WITH DIFF 2021-09-23 [facility] of 10:49:00 [facility] CBC WITH DIFF 2021-09-23 [facility] of 10:49:00 [facility] CBC WITH DIFF 2021-09-23 [facility] of 10:49:00 [facility] CBC WITH DIFF 2021-09-23 [facility] of 10:49:00 [facility] PHOSPHORUS 2021-09-23 [facility] of 09:55:00 [facility] MAGNESIUM 2021-09-23 [facility] of 09:55:00 [facility] HEPATIC FUNCTION PANEL ([id number]) 2021-09-23 [facility] (ALB,T.PRO,BILI 09:55:00 [facility] T,BU/BC,ALT,AST,ALK PHOS) Branch BASIC METABOLIC PANEL (NA, K, 2021-09-23 Lambret Un iversity of CL, CO2, GLUCOSE, BUN, 09:55:00 [facility] CREATININE, CA) Branch PHOSPHORUS 2021-09-23 [facility] of 09:55:00 [facility] MAGNESIUM 2021-09-23 [facility] of 09:55:00 [facility] HEPATIC FUNCTION PANEL ([id number]) 2021-09-23 [place] U niversity of (ALB,T.PRO,BILI 09:55:00 [facility],BU/BC,ALT,AST,ALK PHOS) Branch BASIC METABOLIC PANEL (NA, K, 2021-09-23 [place] Un iversity of CL, CO2, GLUCOSE, BUN, 09:55:00 [facility] Branch BASIC METABOLIC PANEL (NA, K, 2021-09-23 [place] Un iversity of CL, CO2, GLUCOSE, BUN, 09:55:00 [facility] CREATININE, [place]) Branch HEPATIC FUNCTION PANEL ([id number]) 2021-09-23 [place] U niversity of (ALB,T.PRO,BILI 09:55:00 [facility],BU/BC,ALT,AST,ALK PHOS) Branch MAGNESIUM 2021-09-23 [facility] of 09:55:00 [facility] PHOSPHORUS 2021-09-23 [facility] of 09:55:00 [facility] PHOSPHORUS 2021-09-23 [facility] of 09:55:00 [facility] MAGNESIUM 2021-09-23 [facility] of 09:55:00 [facility] HEPATIC FUNCTION PANEL ([id number]) 2021-09-23 [place] U niversity of (ALB,T.PRO,BILI 09:55:00 [facility] T,BU/BC,ALT,AST,ALK PHOS) Branch BASIC METABOLIC PANEL (NA, K, 2021-09-23 [place] Un iversity of CL, CO2, GLUCOSE, BUN, 09:55:00 [facility] CREATININE, [place]) Branch URINALYSIS 2021-09-23 Sasha Ruiz [place] of 01:20:00 [facility] URINALYSIS 2021-09-23 Sasha Ruiz of 01:20:00 [facility] TROPONIN I 2021-09-23 Sasha Ruiz of 01:17:00 [facility] TROPONIN I 2021-09-23 Sasha Ruiz of 01:17:00 [facility] US GALL BLADDER 2021-09-23 Sasha Ruiz of 00:46:00 [facility] US GALL BLADDER 2021-09-23 Sasha Ruiz of 00:46:00 [facility] BLOOD CULTURE SCREEN 2021-09-23 Sasha Ruiz of 00:15:00 [facility] BLOOD CULTURE SCREEN 2021-09-23 Sasha Ruiz of 00:15:00 [facility] BLOOD CULTURE WORKUP 2021-09-23 Sasha Ruiz of 00:15:00 [facility] GRAM NEGATIVE BLOOD PATHOGENS 2021-09-23 Sasha Ruiz Un iversity of DNA PROBE-ANAEROBIC 00:15:00 [facility] LACTIC ACID WHOLE BLOOD 2021-09-23 Sasha Ruiz [facility] ty of 00:13:00 [facility] LACTIC ACID WHOLE BLOOD 2021-09-23 Sasha Ruiz [facility] ty of 00:13:00 [facility] XR CHEST 1 VW 2021-09-22 Sasha Ruiz of 23:52:36 [facility] XR CHEST 1 VW 2021-09-22 Sasha Ruiz of 23:52:36 [facility] LIPASE 2021-09-22 Sasha Ruiz of 23:22:00 [facility] MAGNESIUM 2021-09-22 Sasha Ruiz of 23:22:00 [facility] TROPONIN I 2021-09-22 Sasha Ruiz of 23:22:00 [facility] COMP. METABOLIC PANEL ([id number]) 2021-09-22 Sasha Ruiz Un iversity of 23:22:00 [facility] CBC WITH DIFF 2021-09-22 Sasha Ruiz of 23:22:00 [facility] N-TERMINAL PRO-BNP 2021-09-22 Sasha Ruiz [facility] 23:22:00 [facility] COVID-19 (ID NOW RAPID TESTING) 2021-09-22 Sasha Ruiz [facility] 23:22:00 [facility] CBC WITH DIFF 2021-09-22 Sasha Ruiz [facility] 23:22:00 [facility] COMP. METABOLIC PANEL ([id number]) 2021-09-22 Sasha Ruiz Un iversity of 23:22:00 [facility] MAGNESIUM 2021-09-22 Sasha Ruiz [facility] 23:22:00 [facility] LIPASE 2021-09-22 Sasha Ruiz [facility] 23:22:00 [facility] TROPONIN I 2021-09-22 Sasha Ruiz [facility] 23:22:00 [facility] N-TERMINAL PRO-BNP 2021-09-22 Sasha Ruiz [facility] 23:22:00 [facility] COVID-19 (ID NOW RAPID TESTING) 2021-09-22 Sasha Ruiz [facility] 23:22:00 [facility] LAB ONLY COVID INTERPRETATION 2021-09-22 Sasha Ruiz Un iversity of 23:22:00 [facility] HB ECG ROUTINE & RHYTHM STRIP 2021-09-22 Sasha Ruiz Un iversity of 23:16:55 [facility] CONSENT/REFUSAL FOR DIAGNOSIS 2021-09-22 [facility], [facility] AND TREATMENT 22:55:54 [facility] CONSENT/REFUSAL FOR DIAGNOSIS 2021-09-22 [facility] AND TREATMENT 22:55:54 [facility] AGREEMENTS AUTHORIZATIONS AND 2021-09-22 [facility] 05[facility]01[facility]00 [place] 2000) Branch AGREEMENTS AUTHORIZATIONS AND 2021-09-22 [facility] (FORM 05:01:00 [place] [facility] 2000) Branch AGREEMENTS AUTHORIZATIONS AND 2021-09-22 [facility]FORM 05:01:00 [place] [facility] 2000) Branch AGREEMENTS AUTHORIZATIONS AND 2021-09-22 [facility] of IRREVOCABLE ASSIGNMENTS (FORM 05:01:00 [place]an [place] 2000) Branch BASIC METABOLIC PANEL (NA, K, 2021-06-29 Ghada Hopkins, Un iversity of CL, CO2, GLUCOSE, BUN, 16:09:00 [facility] ica CREATININE, [place]) Branch Encounters Start End Encounter Admission Attending Care Care Encounter Source Date/Time Date/Time Type Type Clinicians Facility Department ID 2021-10-07 2021-10-07 Patient Radha Alejo 1.2.840.114 [id number] Univers 00:00:00 00:00:00 Outreach E WOLFE 350.1.13.10 [id number] [address] 2021-10-05 2021-10-05 Letter QING Pollard 1.2.840.114 [id number] Univers 00:00:00 00:00:00 (Out) Slava NEVILLE 350.1.13.10 it y of [facility] 4.2.7.2.686 Ho as [phone] [address] 2021-09-29 2021-09-29 Transition CjALIX 1.2.840.114 [id number] Univers 00:00:00 00:00:00 of Care Beatriz CORRALESY 350.1.13.10 [place] [phone] [address] 2021-09-23 2021-09-27 Inpatient X PERSON, [facility] MATILDA [id number] Univers 01:36:00 16:51:00 SLAVA ity of [facility] 2021-09-23 2021-09-27 Hospital Marciano Matos 1.2 .840.114 [id number] Univers 01:36:00 16:51:00 Encounter Person, Slava NEVILLE 350.1.13.10 ity [facility] 4.2.7.2.686 Ho as [id number] [address] 2021-09-25 2021-09-25 Anesthesia René Salas 1.2.840 .114 [id number] Univers 08:45:00 12:00:00 Event Leah Meehan 350.1.13.10 ity of [facility] 4.2.7.2.[phone] [facility] 103 Branch 2021-09-25 2021-09-25 Surgery QING Pollard 1.2.840.114 [id number] Univers 08:30:00 11:40:00 Slava NEVILLE 350.1.13.10 it y of [facility] 4.2.7.2.[phone] [facility] 103 Branch 2021-09-24 2021-09-24 [facility] 1.2.840.114 [id number] Univers 13:00:00 14:18:00 Tamir ICAL 350.1.13.10 it y of [facility] 4.2.7.2.[address] Ho [address]LDG [phone] [facility] 020 Branch 2021-09-24 2021-09-24 Anesthesia Carissa Betancourt 1.2.840.8 [id number] Univers 10:43:00 11:51:00 Event Billy Randallmala 24288.1.1 ity of 3.104.2.7 [place] .3.284766 Medica l .8 Branch 2021-09-22 2021-09-23 Emergency X MIGUEL [facility] ERT [id number] Univers 18:02:00 00:22:00 LJ ity of [facility] 2021-09-22 2021-09-23 Emergency Sasha Ruiz 1.2.840.5 [id number] Univers 18:02:00 00:22:00 Lj Crawford 39579.1.1 ity of 3.104.2.7 [place] .3.311185 Medica l .8 Branch 2021-09-22 2021-09-22 Patient Radha Alejo 1.2.840.5 [id number] Univers 00:00:00 00:00:00 Outreach John 89667.1.1 ity of 3.104.2.7 [place] .3.966032 Medica l .8 Branch 2021-09-22 2021-09-22 Travel 1.2.840.1 1.2.419.776 [id number] Univers 00:00:00 00:00:00 10777.1.1 350.1.13.10 ity of 3.104.2.7 4[place]7.3.698 [place] .3.576942 084.8 Medica l .8 Branch 2021-08-21 2021-08-21 Patient Radha Alejo 1.2.840.0 [id number] Univers 00:00:00 00:00:00 Outreach E 15285.1.1 ity of 3.104.2.7 [place] .3.380289 Medica l .8 Branch 2021-08-18 2021-08-18 Patient Radha Alejo 1.2.840.9 [id number] Univers 00:00:00 00:00:00 Outreach E 49753.1.1 ity of 3.104.2.7 [place] .3.951864 Medica l .8 Branch 2021-08-12 2021-08-12 Patient Radha Alejo 1.2.840.7 [id number] Univers 00:00:00 00:00:00 Outreach E 72794.1.1 ity of 3.104.2.7 [place] .3.098189 Medica l .8 [place] 2021-08-12 2021-08-12 Shama Leon, 1.2.840.8 [id number] Univers 00:00:00 00:00:00 Polly 96171.1.1 ity of 3.104.2.7 [place] .3.179252 Medica l .8 [place] 2021-08-11 2021-08-11 Outpatient R EDWARD, [facility] [id number] Univers 13:30:00 13:30:00 POLLY ity of [facility] 2021-06-29 2021-06-29 Office Clinic-Stv, 1.2.840.8 [id number] Univers 09:45:00 11:21:34 Visit Care 03188.1.1 ity of Transition 3.104.2.7 Ho as .3.656181 Medica l .8 Branch 2021-06-29 2021-06-29 Outpatient [facility] [id number] Univers 00:00:00 00:00:00 ity of [facility] 2021-06-29 2021-06-29 Travel 1.2.840.1 1.2.992.837 [id number] Univers 00:00:00 00:00:00 78648.1.1 350.1.13.10 ity of 3.104.2.7 4[place].3.698 [place] .3.598012 084.8 Medica l .8 Branch 2021-06-23 2021-06-23 Outpatient R PERSON, [facility] [id number] Univers 11:00:00 11:41:37 SLAVA [facility] 2021-06-23 2021-06-23 Office Service/[place], Surgery C [facility] 1.2.840.114 [id number] Univers 11:00:00 11:41:37 Visit Person, Slava [facility] 350.1.13.10 ity [place] [place] [id number] [facility] 203 Branch 2021-06-22 2021-06-22 Transition ALIX Corona 1.2.840.114 [id number] Univers 00:00:00 00:00:00 of Care Beatriz WOLFE 350.1.13.10 [place] [place] [id number] [facility] 403 Branch 2021-06-16 2021-06-20 Inpatient X [facility] [id number] Univers 14:30:00 12:16:00 [facility] 2021-06-16 2021-06-20 Hospital Lawson Murphy 1.2.840.1 [id number] Univers 14:30:00 12:16:00 Encounter Nakita Broussard 350.1.13. 10 ity [facility] 4.2.7.2.[address] [place] [phone] [facility] 099 Branch 2021-06-17 2021-06-17 Patient Radha Alejo 1.2.840.114 [id number] Univers 00:00:00 00:00:00 Outreach E WOLFE 350.1.13.10 [place] [place] [id number] [facility] 403 Branch 2021-06-16 2021-06-16 Telephone Mer [facility] 1.2.840.114 [id number] Univers 00:00:00 00:00:00 Khaled [employer] HEALTH 350.1.13.10 ity [place] [place] [id number] [facility] 414 Branch 2021-06-16 2021-06-16 Orders Doctor CHASITY 1.2.840.114 [id number] Univers 00:00:00 00:00:00 Only Unassigned, KELIN 350.1.13.10 ity of [facility] 4.2.7.2.[id number] [facility] 009 Branch 2021-06-16 2021-06-16 Transition ALIX Corona 1.2.840.114 [id number] Univers 00:00:00 00:00:00 of Care Beatriz WOLFE 350.1.13.10 [place] [place] [id number] [facility] 403 Branch 2021-06-08 2021-06-08 Telephone Mer [facility] 1.2.840.114 [id number] Univers 00:00:00 00:00:00 Khaled F Y HEALTH 350.1.13.10 ity [place] [place] [id number] [facility] 414 Branch 2021-05-31 2021-06-05 Outpatient X [facility] [id number] Univers 16:52:00 16:40:00 ADELE ity of [facility] 2021-05-31 2021-06-05 Emergency Chrissy Crabtree 1.2.840 .114 [id number] Univers 16:52:00 16:40:00 Reggie Ryder 350.1.13.10 ity of [facility] 4.2.7.[address] [place] [id number] [facility] 090 Branch 2021-06-04 2021-06-04 Surgery QING Chinchilla 1.2.061.624 [id number] Univers 11:05:00 13:05:00 Afaq KELIN 350.1.13.10 it y of [facility] 4.2.7.2.[id number] [facility] 840 Branch 2021-05-31 2021-05-31 Orders Doctor CHASITY 1.2.840.114 [id number] Univers 00:00:00 00:00:00 Only Unassigned, KELIN 350.1.13.10 ity of [place] [facility] 4.2.7.2.[id number] [facility] 009 Branch Results Test Description Test Time Test Comments Results Result Comments Source POCT GLUCOSE (AUTOMATED) 2021-09-27 13:13:50 Test Item Value Reference Range Interpretation Comme nts POCT GLU (test code = 1259270949) 193 mg/dL 70-110 H Lab Interpretation (test code = 54911-3) [facility]normal [facility]2021-09-27 13:13:50 Test Item Value Reference Range Interpretation Comments POCT GLU (test code = 3881803549) 193 mg/dL 70-110 H Lab Interpretation (test code = Abnormal 71092-9) [facility] METABOLIC PANEL (NA, K, CL, CO2, GLUCOSE, BUN, CREATININE, [place])2021-09-27 11:56:09 Test Item Value Reference Range Interpretation Comments NA (test code = 135 mmol/L 135-145 8138641026) K (test code = 3.9 mmol/L 3.5-5 9878378711) CL (test code = 103 mmol/L 98-108 5221739643) CO2 TOTAL (test code = 26 mmol/L 23-31 3996198577) AGAP (test code = 2-16 0584444995) BUN (test code = 7 mg/dL 7-23 6748685537) GLUCOSE (test code = 167 mg/dL 70-110 H 3936176294) CREATININE (test code = 0.62 mg/dL 0.6-1.25 8610001898) CALCIUM (test code = 8.3 mg/dL 8.6-10.6 L 7985200821) eGFR (test code = mL/min/1.73m2 0848407423) NICKY (test code = NICKY) Association of Glomerular Filtration Rate (GFR) and Staging of Kidney Disease* + --+ --+ ------+| GFR (mL/min/1.73 m2) ?| With Kidney Damage ?| ?Without Kidney Damage+ --------+ --------+ +| ?>90 ?| ?Stage one ?| ? Normal ?+ ---+ ---+ -------+| ?60-89 ?| ?Stage two ?| ? Decreased GFR ? + --+ --+ ------+| ?30-59 ?| ?Stage three ?| ? Stage three ? + --+ --+ ------+| ?15-29 ?| ?Stage four ? | ? Stage four ?+ ---+ ---+ -------+| ?<15 (or dialysis) ? ?| ?Stage five ? | ? Stage five ?+ ---+ ---+ -------+ *Each stage assumes the associated GFR level has been in effect for at least three months. ?Stages 1 to 5, with or without kidney disease, indicate chronic kidney disease. Notes: Determination of stages one and two (with eGFR >59mL/min/1.73 m2) requires estimation of kidney damage for at least three months as defined by structural or functional abnormalities of the kidney, manifested by either:Pathological abnormalities or Markers of kidney damage (including abnormalities in the composition of the blood or urine or abnormalities in imaging tests). Lab Interpretation Abnormal (test code = 17838-5) [facility]22-[facility]07 11:56:09 Test Item Value Reference Range Interpretation Comments MAGNESIUM (test code = 0308987181) 1.5 mg/dL 1.7-2.4 L Lab Interpretation (test code = Abnormal 81591-1) [facility]22-[facility]-07 11:56:09 Test Item Value Reference Range Interpretation Comments PHOSPHORUS (test code = 5662612470) 1.7 mg/dL 2.5-5 L Lab Interpretation (test code = Abnormal 76103-9) [facility] FUNCTION PANEL (58216) (ALB,T.PRO,BILI T,BU/BC,ALT,AST,ALK PHOS)2021-09-27 11:56:09 Test Item Value Reference Range Interpretation Comments TOTAL BILI (test code = 3492196013) 1.6 mg/dL 0.1-1.1 H BILI UNCON (test code = 2883109796) 0.9 mg/dL 0.1-1.1 BILI CONJ (test code = 5580576522) 0.0 mg/dL 0-0.3 T PROTEIN (test code = 9185790583) 6.6 g/dL 6.3-8.2 ALBUMIN (test code = 8809678457) 3.4 g/dL 3.5-5 L ALK PHOS (test code = 0083097256) 242 U/L 34-122 H ALTv (test code = 1742-6) 116 U/L 5-50 H AST(SGOT) (test code = 4532117320) 53 U/L 13-40 H Lab Interpretation (test code = Abnormal 26366-4) [facility] METABOLIC PANEL (NA, K, CL, CO2, GLUCOSE, BUN, CREATININE, CA)2021-09-27 11:56:09 Test Item Value Reference Range Interpretation Comments NA (test code = 135 mmol/L 135-145 [id number]) K (test code = 3.9 mmol/L 3.5-5 5719431470) CL (test code = 103 mmol/L 98-108 4909316375) CO2 TOTAL (test code = 26 mmol/L 23-31 3850813073) AGAP (test code = 2-16 1372210298) BUN (test code = 7 mg/dL 7-23 9825793568) GLUCOSE (test code = 167 mg/dL 70-110 H [id number]) CREATININE (test code = 0.62 mg/dL 0.6-1.25 4197298736) CALCIUM (test code = 8.3 mg/dL 8.6-10.6 L 9932022046) eGFR (test code = mL/min/1.73m2 0915871764) NICKY (test code = NICKY) Association of Glomerular Filtration Rate (GFR) and Staging of Kidney Disease* + --+ --+ ------+| GFR (mL/min/1.73 m2) ?| With Kidney Damage ?| ?Without Kidney Damage+ --------+ --------+ +| ?>90 ?| ?Stage one ?| ? Normal ?+ ---+ ---+ -------+| ?60-89 ?| ?Stage two ?| ? Decreased GFR ? + --+ --+ ------+| ?30-59 ?| ?Stage three ?| ? Stage three ? + --+ --+ ------+| ?15-29 ?| ?Stage four ? | ? Stage four ?+ ---+ ---+ -------+| ?<15 (or dialysis) ? ?| ?Stage five ? | ? Stage five ?+ ---+ ---+ -------+ *Each stage assumes the associated GFR level has been in effect for at least three months. ?Stages 1 to 5, with or without kidney disease, indicate chronic kidney disease. Notes: Determination of stages one and two (with eGFR >59mL/min/1.73 m2) requires estimation of kidney damage for at least three months as defined by structural or functional abnormalities of the kidney, manifested by either:Pathological abnormalities or Markers of kidney damage (including abnormalities in the composition of the blood or urine or abnormalities in imaging tests). Lab Interpretation Abnormal (test code = 54805-4) [facility] 11:56:09 Test Item Value Reference Range Interpretation Comments MAGNESIUM (test code = 3629373728) 1.5 mg/dL 1.7-2.4 L Lab Interpretation (test code = Abnormal 80908-9) [facility] 11:56:09 Test Item Value Reference Range Interpretation Comments PHOSPHORUS (test code = 9526202266) 1.7 mg/dL 2.5-5 L Lab Interpretation (test code = Abnormal 52593-3) [facility]33368[facility] (ALB,T.PRO,BILI T,BU/BC,ALT,AST,ALK PHOS)2021-09-27 11:56:09 Test Item Value Reference Range Interpretation Comments TOTAL BILI (test code = 0570138130) 1.6 mg/dL 0.1-1.1 H BILI UNCON (test code = 6928477633) 0.9 mg/dL 0.1-1.1 BILI CONJ (test code = 2229309420) 0.0 mg/dL 0-0.3 T PROTEIN (test code = 0627411663) 6.6 g/dL 6.3-8.2 ALBUMIN (test code = 4972447337) 3.4 g/dL 3.5-5 L ALK PHOS (test code = 7969705061) 242 U/L 34-122 H ALTv (test code = 1742-6) 116 U/L 5-50 H AST(SGOT) (test code = 3260510257) 53 U/L 13-40 H Lab Interpretation (test code = Abnormal 50939-1) [facility] WITH [id number] 11:41:28 Test Item Value Reference Range Interpretation Comments WBC (test code = See_Comment H [Automated 8019-2) message] The sy stem which generated this result transmitted reference range : 4.20 - 10.70 10*3/?L. The reference range was not used to interpret this result as normal/abnormal . RBC (test code = See_Comment [Automated 479-8) message] The sy stem which generated this result transmitted reference range : 4.26 - 5.52 10*6/?L. The reference range was not used to interpret this result as normal/abnormal . HGB (test code = 12.6 g/dL 12.2-16.4 718-7) HCT (test code = 36.4 % 38.4-49.3 L 4544-3) MCV (test code = 84.1 fL 81.7-95.6 787-2) MCH (test code = 29.1 pg 26.1-32.7 785-6) MCHC (test code = 34.6 g/dL 31.2-35 786-4) RDW-SD (test code = 43.5 fL 38.5-51.6 15270-2) RDW-CV (test code = 14.1 % 12.1-15.4 788-0) PLT (test code = See_Comment [Automated 467-3) message] The sy stem which generated this result transmitted reference range : 150 - 328 10*3/ ?L. The reference r sue was not used to interpret this result as normal/abnormal . MPV (test code = 9.1 fL 9.8-13 L 23546-8) NRBC/100 WBC (test See_Comment [Automat ed code = 1040915296) message] The system which generated this result transmitted reference range : 0.0 - 10.0 /100 WBCs. The refer ence range was not u sed to interpret th is result as normal/abnormal . NRBC x10^3 (test code See_Comment [Auto mated = 6784247569) message] The s ystem which generated this result transmitted reference range : 10*3/?L. The reference range was not used to interpret this result as normal/abnormal . GRAN MAT (NEUT) % 74.6 % (test code = 770-8) IMM GRAN % (test code 1.10 % = 5426845858) LYMPH % (test code = 14.2 % 736-9) MONO % (test code = 8.9 % 5905-5) EOS % (test code = 0.8 % 713-8) BASO % (test code = 0.4 % 706-2) GRAN MAT x10^3(ANC) 9.75 10*3/uL 1.99-6.95 H (test code = 2200015348) IMM GRAN x10^3 (test 0.14 10*3/uL 0-0.06 H code = 9427685913) LYMPH x10^3 (test code 1.85 10*3/uL 1.09-3.23 = 731-0) MONO x10^3 (test code 1.16 10*3/uL 0.36-1.02 H = 742-7) EOS x10^3 (test code = 0.10 10*3/uL 0.06-0.53 711-2) BASO x10^3 (test code 0.05 10*3/uL 0.01-0.09 = 704-7) Lab Interpretation Abnormal (test code = 44690-7) [facility] WITH [id number] 11:41:28 Test Item Value Reference Range Interpretation Comments WBC (test code = See_Comment H [Automated 6690-2) message] The sy stem which generated this result transmitted reference range : 4.20 - 10.70 10*3/?L. The reference range was not used to interpret this result as normal/abnormal . RBC (test code = See_Comment [Automated 789-8) message] The sy stem which generated this result transmitted reference range : 4.26 - 5.52 10*6/?L. The reference range was not used to interpret this result as normal/abnormal . HGB (test code = 12.6 g/dL 12.2-16.4 718-7) HCT (test code = 36.4 % 38.4-49.3 L 4544-3) MCV (test code = 84.1 fL 81.7-95.6 787-2) MCH (test code = 29.1 pg 26.1-32.7 785-6) MCHC (test code = 34.6 g/dL 31.2-35 786-4) RDW-SD (test code = 43.5 fL 38.5-51.6 27486-1) RDW-CV (test code = 14.1 % 12.1-15.4 788-0) PLT (test code = See_Comment [Automated 777-3) message] The sy stem which generated this result transmitted reference range : 150 - 328 10*3/ ?L. The reference r sue was not used to interpret this result as normal/abnormal . MPV (test code = 9.1 fL 9.8-13 L 79252-7) NRBC/100 WBC (test See_Comment [Automat ed code = 0157445426) message] The system which generated this result transmitted reference range : 0.0 - 10.0 /100 WBCs. The refer ence range was not u sed to interpret th is result as normal/abnormal . NRBC x10^3 (test code See_Comment [Auto mated = 8248067231) message] The s ystem which generated this result transmitted reference range : 10*3/?L. The reference range was not used to interpret this result as normal/abnormal . GRAN MAT (NEUT) % 74.6 % (test code = 770-8) IMM GRAN % (test code 1.10 % = 1056311611) LYMPH % (test code = 14.2 % 736-9) MONO % (test code = 8.9 % 5905-5) EOS % (test code = 0.8 % 713-8) BASO % (test code = 0.4 % 706-2) GRAN MAT x10^3(ANC) 9.75 10*3/uL 1.99-6.95 H (test code = 8356489456) IMM GRAN x10^3 (test 0.14 10*3/uL 0-0.06 H code = 2528364253) LYMPH x10^3 (test code 1.85 10*3/uL 1.09-3.23 = 731-0) MONO x10^3 (test code 1.16 10*3/uL 0.36-1.02 H = 742-7) EOS x10^3 (test code = 0.10 10*3/uL 0.06-0.53 711-2) BASO x10^3 (test code 0.05 10*3/uL 0.01-0.09 = 704-7) Lab Interpretation Abnormal (test code = 15290-7) [facility] GLUCOSE (AUTOMATED)2021-09-27 11:22:49 Test Item Value Reference Range Interpretation Comments POCT GLU (test code = 8854092864) 148 mg/dL 70-110 H Lab Interpretation (test code = Abnormal 36991-0) [facility] GLUCOSE (AUTOMATED)2021-09-27 11:22:49 Test Item Value Reference Range Interpretation Comments POCT GLU (test code = 8682145970) 148 mg/dL 70-110 H Lab Interpretation (test code = Abnormal 56838-5) [facility] GLUCOSE (AUTOMATED)2021-09-26 22:49:26 Test Item Value Reference Range Interpretation Comments POCT GLU (test code = 2004276253) 196 mg/dL 70-110 H Lab Interpretation (test code = Abnormal 19634-0) [facility] GLUCOSE (AUTOMATED)2021-09-26 22:49:26 Test Item Value Reference Range Interpretation Comments POCT GLU (test code = 0954288153) 196 mg/dL 70-110 H Lab Interpretation (test code = Abnormal 82067-7) [facility] GLUCOSE (AUTOMATED)2021-09-26 20:59:22 Test Item Value Reference Range Interpretation Comments POCT GLU (test code = 8930291349) 198 mg/dL 70-110 H Lab Interpretation (test code = Abnormal 75050-6) [facility] GLUCOSE (AUTOMATED)2021-09-26 20:59:22 Test Item Value Reference Range Interpretation Comments POCT GLU (test code = 3258105692) 198 mg/dL 70-110 H Lab Interpretation (test code = Abnormal 79522-8) [facility] GLUCOSE (AUTOMATED)2021-09-26 16:45:10 Test Item Value Reference Range Interpretation Comments POCT GLU (test code = 5277785983) 219 mg/dL 70-110 H Lab Interpretation (test code = Abnormal 57291-4) [facility] GLUCOSE (AUTOMATED)2021-09-26 16:45:10 Test Item Value Reference Range Interpretation Comments POCT GLU (test code = 9684814694) 219 mg/dL 70-110 H Lab Interpretation (test code = Abnormal 78461-7) [facility] GLUCOSE (AUTOMATED)2021-09-26 12:58:39 Test Item Value Reference Range Interpretation Comments POCT GLU (test code = 3423635934) 186 mg/dL 70-110 H Lab Interpretation (test code = Abnormal 47105-2) [facility] GLUCOSE (AUTOMATED)2021-09-26 12:58:39 Test Item Value Reference Range Interpretation Comments POCT GLU (test code = 9562767630) 186 mg/dL 70-110 H Lab Interpretation (test code = Abnormal 22057-2) [facility] GLUCOSE (AUTOMATED)2021-09-26 11:00:06 Test Item Value Reference Range Interpretation Comments POCT GLU (test code = 3906858584) 192 mg/dL 70-110 H Lab Interpretation (test code = Abnormal 95344-8) [facility] GLUCOSE (AUTOMATED)2021-09-26 11:00:06 Test Item Value Reference Range Interpretation Comments POCT GLU (test code = 4793584921) 192 mg/dL 70-110 H Lab Interpretation (test code = Abnormal 61642-9) [facility] GLUCOSE (AUTOMATED)2021-09-26 04:44:54 Test Item Value Reference Range Interpretation Comments POCT GLU (test code = 2172737049) 220 mg/dL 70-110 H Lab Interpretation (test code = Abnormal 67981-8) [facility] GLUCOSE (AUTOMATED)2021-09-26 04:44:54 Test Item Value Reference Range Interpretation Comments POCT GLU (test code = 0232440983) 220 mg/dL 70-110 H Lab Interpretation (test code = Abnormal 77691-9) [facility] GLUCOSE (AUTOMATED)2021-09-25 22:57:39 Test Item Value Reference Range Interpretation Comments POCT GLU (test code = 5183133091) 251 mg/dL 70-110 H Lab Interpretation (test code = Abnormal 16197-3) [facility] GLUCOSE (AUTOMATED)2021-09-25 22:57:39 Test Item Value Reference Range Interpretation Comments POCT GLU (test code = 7881661114) 251 mg/dL 70-110 H Lab Interpretation (test code = Abnormal 73050-8) [facility] GLUCOSE (AUTOMATED)2021-09-25 17:02:58 Test Item Value Reference Range Interpretation Comments POCT GLU (test code = 7854123002) 252 mg/dL 70-110 H Lab Interpretation (test code = Abnormal 36558-5) [facility] GLUCOSE (AUTOMATED)2021-09-25 17:02:58 Test Item Value Reference Range Interpretation Comments POCT GLU (test code = 3117547753) 252 mg/dL 70-110 H Lab Interpretation (test code = Abnormal 97047-0) [facility] GLUCOSE (AUTOMATED)2021-09-25 17:02:58 Test Item Value Reference Range Interpretation Comments POCT GLU (test code = 2217012878) 252 mg/dL 70-110 H Lab Interpretation (test code = Abnormal 04703-0) [facility] [id number] 13:48:37 Test Item Value Reference Range Interpretation Comments ABO & RH (test code O POSITIVE Performe d at [facility] = 20) Laboratory Serv [facility] [address] [facility] s [id number] Free: [phone] A No. [id number] IAT (test code = Negative Performed a t [facility] 1185) Laboratory Serv [facility] [address] [facility] s [id number] Free: [phone] A No. [id number] [facility] - ONCE [id number] 13:48:37 Test Item Value Reference Range Interpretation Comments ABO & RH (test code O POSITIVE Performe d at [facility] = 20) Laboratory Serv [facility] [address] [facility] [address]Cquk Free: [phone] A No. [id number] IAT (test code = Negative Performed a t [facility] 1185) Laboratory [facility] Blood [facility] [place] [address]Bdqk Free: [phone] A No. [id number] [facility] and Screen - ONCE [id number] 13:48:37 Test Item Value Reference Range Interpretation Comments ABO & RH (test code O POSITIVE Performe d at [facility] = 20) Laboratory [facility] Blood [facility] [address] [facility] [address]Ubew Free: [phone] A No. [id number] IAT (test code = Negative Performed a t [facility] 1185) Laboratory [facility] Blood [facility] [address] [facility] s [address]Ubbc Free: [phone] A No. [id number] [facility] GLUCOSE (AUTOMATED)2021-09-25 10:16:31 Test Item Value Reference Range Interpretation Comments POCT GLU (test code = 1872894369) 211 mg/dL 70-110 H Lab Interpretation (test code = Abnormal 41239-2) [facility] GLUCOSE (AUTOMATED)2021-09-25 10:16:31 Test Item Value Reference Range Interpretation Comments POCT GLU (test code = 6069289003) 211 mg/dL 70-110 H Lab Interpretation (test code = Abnormal 49678-5) [facility] GLUCOSE (AUTOMATED)2021-09-25 10:16:31 Test Item Value Reference Range Interpretation Comments POCT GLU (test code = 3171936240) 211 mg/dL 70-110 H Lab Interpretation (test code = Abnormal 93052-7) [facility] GLUCOSE (AUTOMATED)2021-09-25 05:02:19 Test Item Value Reference Range Interpretation Comments POCT GLU (test code = 5933980298) 238 mg/dL 70-110 H Lab Interpretation (test code = Abnormal 74009-4) [facility] GLUCOSE (AUTOMATED)2021-09-25 05:02:19 Test Item Value Reference Range Interpretation Comments POCT GLU (test code = 5979545078) 238 mg/dL 70-110 H Lab Interpretation (test code = Abnormal 67512-1) [facility] GLUCOSE (AUTOMATED)2021-09-25 05:02:19 Test Item Value Reference Range Interpretation Comments POCT GLU (test code = 9212608838) 238 mg/dL 70-110 H Lab Interpretation (test code = Abnormal 61716-4) [facility] GLUCOSE (AUTOMATED)2021-09-25 02:23:37 Test Item Value Reference Range Interpretation Comments POCT GLU (test code = 7989271834) 286 mg/dL 70-110 H Lab Interpretation (test code = Abnormal 40205-0) [facility] GLUCOSE (AUTOMATED)2021-09-25 02:23:37 Test Item Value Reference Range Interpretation Comments POCT GLU (test code = 6054082900) 286 mg/dL 70-110 H Lab Interpretation (test code = Abnormal 20720-0) [facility] GLUCOSE (AUTOMATED)2021-09-25 02:23:37 Test Item Value Reference Range Interpretation Comments POCT GLU (test code = 3704022635) 286 mg/dL 70-110 H Lab Interpretation (test code = Abnormal 75614-3) [facility] GLUCOSE (AUTOMATED)2021-09-24 22:43:05 Test Item Value Reference Range Interpretation Comments POCT GLU (test code = 9248804964) 301 mg/dL 70-110 H Lab Interpretation (test code = Abnormal 50558-2) [facility] GLUCOSE (AUTOMATED)2021-09-24 22:43:05 Test Item Value Reference Range Interpretation Comments POCT GLU (test code = 0552147992) 301 mg/dL 70-110 H Lab Interpretation (test code = Abnormal 85295-8) [facility] GLUCOSE (AUTOMATED)2021-09-24 22:43:05 Test Item Value Reference Range Interpretation Comments POCT GLU (test code = 3926465705) 301 mg/dL 70-110 H Lab Interpretation (test code = Abnormal 91747-9) [facility] WITH [id number] 20:50:00 Test Item Value Reference Range Interpretation Comments WBC (test code = See_Comment [Automated 6690-2) message] The sy stem which generated this result transmitted reference range : 4.20 - 10.70 10*3/?L. The reference range was not used to interpret this result as normal/abnormal . RBC (test code = See_Comment [Automated 789-8) message] The sy stem which generated this result transmitted reference range : 4.26 - 5.52 10*6/?L. The reference range was not used to interpret this result as normal/abnormal . HGB (test code = 14.1 g/dL 12.2-16.4 718-7) HCT (test code = 41.1 % 38.4-49.3 4544-3) MCV (test code = 85.6 fL 81.7-95.6 787-2) MCH (test code = 29.4 pg 26.1-32.7 785-6) MCHC (test code = 34.3 g/dL 31.2-35 786-4) RDW-SD (test code = 41.3 fL 38.5-51.6 05751-9) RDW-CV (test code = 13.2 % 12.1-15.4 788-0) PLT (test code = See_Comment [Automated 777-3) message] The sy stem which generated this result transmitted reference range : 150 - 328 10*3/ ?L. The reference r sue was not used to interpret this result as normal/abnormal . MPV (test code = 10.8 fL 9.8-13 99512-0) NRBC/100 WBC (test See_Comment [Automat ed code = 5956707535) message] The system which generated this result transmitted reference range : 0.0 - 10.0 /100 WBCs. The refer ence range was not u sed to interpret th is result as normal/abnormal . NRBC x10^3 (test code See_Comment [Auto mated = 8114273935) message] The s ystem which generated this result transmitted reference range : 10*3/?L. The reference range was not used to interpret this result as normal/abnormal . GRAN MAT (NEUT) % 87.1 % (test code = 770-8) IMM GRAN % (test code 0.40 % = 4764732169) LYMPH % (test code = 9.5 % 736-9) MONO % (test code = 2.4 % 5905-5) EOS % (test code = 0.3 % 713-8) BASO % (test code = 0.3 % 706-2) GRAN MAT x10^3(ANC) 5.87 10*3/uL 1.99-6.95 (test code = 6964959552) IMM GRAN x10^3 (test 0.03 10*3/uL 0-0.06 code = 7608336029) LYMPH x10^3 (test code 0.64 10*3/uL 1.09-3.23 L = 731-0) MONO x10^3 (test code 0.16 10*3/uL 0.36-1.02 L = 742-7) EOS x10^3 (test code = 0.06-0.53 L 711-2) BASO x10^3 (test code 0.01-0.09 = 704-7) Lab Interpretation Abnormal (test code = 67078-2) [facility] WITH [id number] 20:50:00 Test Item Value Reference Range Interpretation Comments WBC (test code = See_Comment [Automated 5332-2) message] The sy stem which generated this result transmitted reference range : 4.20 - 10.70 10*3/?L. The reference range was not used to interpret this result as normal/abnormal . RBC (test code = See_Comment [Automated 461-8) message] The sy stem which generated this result transmitted reference range : 4.26 - 5.52 10*6/?L. The reference range was not used to interpret this result as normal/abnormal . HGB (test code = 14.1 g/dL 12.2-16.4 718-7) HCT (test code = 41.1 % 38.4-49.3 4544-3) MCV (test code = 85.6 fL 81.7-95.6 787-2) MCH (test code = 29.4 pg 26.1-32.7 785-6) MCHC (test code = 34.3 g/dL 31.2-35 786-4) RDW-SD (test code = 41.3 fL 38.5-51.6 03268-7) RDW-CV (test code = 13.2 % 12.1-15.4 788-0) PLT (test code = See_Comment [Automated 777-3) message] The sy stem which generated this result transmitted reference range : 150 - 328 10*3/ ?L. The reference r sue was not used to interpret this result as normal/abnormal . MPV (test code = 10.8 fL 9.8-13 44581-2) NRBC/100 WBC (test See_Comment [Automat ed code = 3914292474) message] The system which generated this result transmitted reference range : 0.0 - 10.0 /100 WBCs. The refer ence range was not u sed to interpret th is result as normal/abnormal . NRBC x10^3 (test code See_Comment [Auto mated = 8863144325) message] The s ystem which generated this result transmitted reference range : 10*3/?L. The reference range was not used to interpret this result as normal/abnormal . GRAN MAT (NEUT) % 87.1 % (test code = 770-8) IMM GRAN % (test code 0.40 % = 9087161347) LYMPH % (test code = 9.5 % 736-9) MONO % (test code = 2.4 % 5905-5) EOS % (test code = 0.3 % 713-8) BASO % (test code = 0.3 % 706-2) GRAN MAT x10^3(ANC) 5.87 10*3/uL 1.99-6.95 (test code = 3745519881) IMM GRAN x10^3 (test 0.03 10*3/uL 0-0.06 code = 8264560084) LYMPH x10^3 (test code 0.64 10*3/uL 1.09-3.23 L = 731-0) MONO x10^3 (test code 0.16 10*3/uL 0.36-1.02 L = 742-7) EOS x10^3 (test code = 0.06-0.53 L 711-2) BASO x10^3 (test code 0.01-0.09 = 704-7) Lab Interpretation Abnormal (test code = 65582-6) [facility] WITH [id number] 20:50:00 Test Item Value Reference Range Interpretation Comments WBC (test code = See_Comment [Automated 8290-2) message] The sy stem which generated this result transmitted reference range : 4.20 - 10.70 10*3/?L. The reference range was not used to interpret this result as normal/abnormal . RBC (test code = See_Comment [Automated 439-8) message] The sy stem which generated this result transmitted reference range : 4.26 - 5.52 10*6/?L. The reference range was not used to interpret this result as normal/abnormal . HGB (test code = 14.1 g/dL 12.2-16.4 718-7) HCT (test code = 41.1 % 38.4-49.3 4544-3) MCV (test code = 85.6 fL 81.7-95.6 787-2) MCH (test code = 29.4 pg 26.1-32.7 785-6) MCHC (test code = 34.3 g/dL 31.2-35 786-4) RDW-SD (test code = 41.3 fL 38.5-51.6 78443-4) RDW-CV (test code = 13.2 % 12.1-15.4 788-0) PLT (test code = See_Comment [Automated 777-3) message] The sy stem which generated this result transmitted reference range : 150 - 328 10*3/ ?L. The reference r sue was not used to interpret this result as normal/abnormal . MPV (test code = 10.8 fL 9.8-13 15167-7) NRBC/100 WBC (test See_Comment [Automat ed code = 2525748201) message] The system which generated this result transmitted reference range : 0.0 - 10.0 /100 WBCs. The refer ence range was not u sed to interpret th is result as normal/abnormal . NRBC x10^3 (test code See_Comment [Auto mated = 9012621330) message] The s ystem which generated this result transmitted reference range : 10*3/?L. The reference range was not used to interpret this result as normal/abnormal . GRAN MAT (NEUT) % 87.1 % (test code = 770-8) IMM GRAN % (test code 0.40 % = 5558109651) LYMPH % (test code = 9.5 % 736-9) MONO % (test code = 2.4 % 5905-5) EOS % (test code = 0.3 % 713-8) BASO % (test code = 0.3 % 706-2) GRAN MAT x10^3(ANC) 5.87 10*3/uL 1.99-6.95 (test code = 0314824428) IMM GRAN x10^3 (test 0.03 10*3/uL 0-0.06 code = 8790397766) LYMPH x10^3 (test code 0.64 10*3/uL 1.09-3.23 L = 731-0) MONO x10^3 (test code 0.16 10*3/uL 0.36-1.02 L = 742-7) EOS x10^3 (test code = 0.06-0.53 L 711-2) BASO x10^3 (test code 0.01-0.09 = 704-7) Lab Interpretation Abnormal (test code = 58088-9) [facility] GLUCOSE (AUTOMATED)2021-09-24 17:14:15 Test Item Value Reference Range Interpretation Comments POCT GLU (test code = 1141695055) 171 mg/dL 70-110 H Lab Interpretation (test code = Abnormal 87006-8) [facility] GLUCOSE (AUTOMATED)2021-09-24 17:14:15 Test Item Value Reference Range Interpretation Comments POCT GLU (test code = 0910316588) 171 mg/dL 70-110 H Lab Interpretation (test code = Abnormal 39949-7) [facility] GLUCOSE (AUTOMATED)2021-09-24 17:14:15 Test Item Value Reference Range Interpretation Comments POCT GLU (test code = 3965681463) 171 mg/dL 70-110 H Lab Interpretation (test code = Abnormal 49292-3) [facility]24 17:14:15 Test Item Value Reference Range Interpretation Comments POCT GLU (test code = 2471322020) 171 mg/dL 70-110 H Lab Interpretation (test code = Abnormal 35893-0) [facility] (12863[facility] (ALB,T.PRO,BILI T,BU/BC,ALT,AST,ALK PHOS)2021-09-24 15:54:45 Test Item Value Reference Range Interpretation Comments TOTAL BILI (test code = 5.0 mg/dL 0.1-1.1 H 4646539838) BILI UNCON (test code = 1.3 mg/dL 0.1-1.1 H 2535026553) BILI CONJ (test code = 2.2 mg/dL 0-0.3 H 6135252828) T PROTEIN (test code = 6.6 g/dL 6.3-8.2 9675696784) ALBUMIN (test code = 3.4 g/dL 3.5-5 L 5418497818) ALK PHOS (test code = 247 U/L 34-122 H Slight hemolysis 6699039489) ALTv (test code = 1742-6) 231 U/L 5-50 H AST(SGOT) (test code = 72 U/L 13-40 H Sligh t hemolysis 1192104998) Lab Interpretation (test Abnormal code = 97047-8) [facility] (78451) (ALB,T.PRO,BILI T,BU/BC,ALT,AST,ALK PHOS)2021-09-24 15:54:45 Test Item Value Reference Range Interpretation Comments TOTAL BILI (test code = 5.0 mg/dL 0.1-1.1 H 7398343959) BILI UNCON (test code = 1.3 mg/dL 0.1-1.1 H 0116120377) BILI CONJ (test code = 2.2 mg/dL 0-0.3 H 7558861072) T PROTEIN (test code = 6.6 g/dL 6.3-8.2 7009237866) ALBUMIN (test code = 3.4 g/dL 3.5-5 L 4418845030) ALK PHOS (test code = 247 U/L 34-122 H Slight hemolysis 8840339573) ALTv (test code = 1742-6) 231 U/L 5-50 H AST(SGOT) (test code = 72 U/L 13-40 H Sligh t hemolysis 7591445955) Lab Interpretation (test Abnormal code = 33744-7) [id number] (ALB,T.PRO,BILI T,BU/BC,ALT,AST,ALK PHOS)2021-09-24 15:54:45 Test Item Value Reference Range Interpretation Comments TOTAL BILI (test code = 5.0 mg/dL 0.1-1.1 H 4112448297) BILI UNCON (test code = 1.3 mg/dL 0.1-1.1 H 9113388329) BILI CONJ (test code = 2.2 mg/dL 0-0.3 H 3467705998) T PROTEIN (test code = 6.6 g/dL 6.3-8.2 8139821335) ALBUMIN (test code = 3.4 g/dL 3.5-5 L 2114679760) ALK PHOS (test code = 247 U/L 34-122 H Slight hemolysis 5169733086) ALTv (test code = 1742-6) 231 U/L 5-50 H AST(SGOT) (test code = 72 U/L 13-40 H Sligh t hemolysis 0607954139) Lab Interpretation (test Abnormal code = 20710-2) [facility]97016[facility] (ALB,T.PRO,BILI T,BU/BC,ALT,AST,ALK PHOS)2021-09-24 15:54:45 Test Item Value Reference Range Interpretation Comments TOTAL BILI (test code = 5.0 mg/dL 0.1-1.1 H 8789380534) BILI UNCON (test code = 1.3 mg/dL 0.1-1.1 H 8876324245) BILI CONJ (test code = 2.2 mg/dL 0-0.3 H 7610033870) T PROTEIN (test code = 6.6 g/dL 6.3-8.2 0573780345) ALBUMIN (test code = 3.4 g/dL 3.5-5 L 9942745458) ALK PHOS (test code = 247 U/L 34-122 H Slight hemolysis 8026900268) ALTv (test code = 1742-6) 231 U/L 5-50 H AST(SGOT) (test code = 72 U/L 13-40 H Sligh t hemolysis 8284609542) Lab Interpretation (test Abnormal code = 86961-0) [facility] METABOLIC PANEL (NA, K, CL, CO2, GLUCOSE, BUN, CREATININE, CA)2021-09-24 11:43:19 Test Item Value Reference Range Interpretation Comments NA (test code = 134 mmol/L 135-145 L 5231383657) K (test code = 4.6 mmol/L 3.5-5 Slight 6443521540) hemolysis CL (test code = 105 mmol/L 98-108 5600930627) CO2 TOTAL (test code 23 mmol/L 23-31 = 0530260597) AGAP (test code = 2-16 1032113194) BUN (test code = 21 mg/dL 7-23 Slight 7664349573) hemolysis GLUCOSE (test code = 159 mg/dL 70-110 H 3381846203) CREATININE (test code 0.71 mg/dL 0.6-1.25 = 4788255454) CALCIUM (test code = 8.4 mg/dL 8.6-10.6 L 8607237262) eGFR (test code = mL/min/1.73m2 9393015058) NICKY (test code = NICKY) Association of Glomerular Filtration Rate (GFR) and Staging of Kidney Disease* + -----+ --------+ +| GFR (mL/min/1.73 m2) ?| With Kidney Damage ?| ?Without Kidney Damage+ +------- +---- --+| ?>90 ?| ?Stage one ?| ? Normal ?+ ------+ ---------+--------- +| ?60-89 ?| ?Stage two ?| ? Decreased GFR ? + -----+ --------+ +| ?30-59 ?| ?Stage three ?| ? Stage three ? + -----+ --------+ +| ?15-29 ?| ?Stage four ? | ? Stage four ?+ ------+ ---------+--------- +| ?<15 (or dialysis) ? ?| ?Stage five ? | ? Stage five ?+ ------+ ---------+--------- + *Each stage assumes the associated GFR level has been in effect for at least three months. ?Stages 1 to 5, with or without kidney disease, indicate chronic kidney disease. Notes: Determination of stages one and two (with eGFR >59mL/min/1.73 m2) requires estimation of kidney damage for at least three months as defined by structural or functional abnormalities of the kidney, manifested by either:Pathological abnormalities or Markers of kidney damage (including abnormalities in the composition of the blood or urine or abnormalities in imaging tests). Lab Interpretation Abnormal (test code = 40259-4) [facility] 11:43:19 Test Item Value Reference Range Interpretation Comments MAGNESIUM (test code = 9155032916) 1.4 mg/dL 1.7-2.4 L Lab Interpretation (test code = Abnormal 02996-8) [facility] 11:43:19 Test Item Value Reference Range Interpretation Comments PHOSPHORUS (test code = 0485103587) 2.4 mg/dL 2.5-5 L Lab Interpretation (test code = Abnormal 74350-1) [facility] (NA, K, CL, CO2, GLUCOSE, BUN, CREATININE, CA)2021-09-24 11:43:19 Test Item Value Reference Range Interpretation Comments NA (test code = 134 mmol/L 135-145 L 5119718753) K (test code = 4.6 mmol/L 3.5-5 Slight 4674303380) hemolysis CL (test code = 105 mmol/L 98-108 6214080564) CO2 TOTAL (test code 23 mmol/L 23-31 = 6665170356) AGAP (test code = 2-16 7262661565) BUN (test code = 21 mg/dL 7-23 Slight 4573718533) hemolysis GLUCOSE (test code = 159 mg/dL 70-110 H 3930967000) CREATININE (test code 0.71 mg/dL 0.6-1.25 = 0212010801) CALCIUM (test code = 8.4 mg/dL 8.6-10.6 L 4127325188) eGFR (test code = mL/min/1.73m2 7932203354) NICKY (test code = NICKY) Association of Glomerular Filtration Rate (GFR) and Staging of Kidney Disease* + -----+ --------+ +| GFR (mL/min/1.73 m2) ?| With Kidney Damage ?| ?Without Kidney Damage+ +------- +---- --+| ?>90 ?| ?Stage one ?| ? Normal ?+ ------+ ---------+--------- +| ?60-89 ?| ?Stage two ?| ? Decreased GFR ? + -----+ --------+ +| ?30-59 ?| ?Stage three ?| ? Stage three ? + -----+ --------+ +| ?15-29 ?| ?Stage four ? | ? Stage four ?+ ------+ ---------+--------- +| ?<15 (or dialysis) ? ?| ?Stage five ? | ? Stage five ?+ ------+ ---------+--------- + *Each stage assumes the associated GFR level has been in effect for at least three months. ?Stages 1 to 5, with or without kidney disease, indicate chronic kidney disease. Notes: Determination of stages one and two (with eGFR >59mL/min/1.73 m2) requires estimation of kidney damage for at least three months as defined by structural or functional abnormalities of the kidney, manifested by either:Pathological abnormalities or Markers of kidney damage (including abnormalities in the composition of the blood or urine or abnormalities in imaging tests). Lab Interpretation Abnormal (test code = 04139-1) [facility] 11:43:19 Test Item Value Reference Range Interpretation Comments MAGNESIUM (test code = 2348646718) 1.4 mg/dL 1.7-2.4 L Lab Interpretation (test code = Abnormal 92070-0) [facility]2022[facility] 11:43:19 Test Item Value Reference Range Interpretation Comments PHOSPHORUS (test code = 5154192313) 2.4 mg/dL 2.5-5 L Lab Interpretation (test code = Abnormal 39954-3) [facility]2022[facility] 11:43:19 Test Item Value Reference Range Interpretation Comments PHOSPHORUS (test code = 9269431852) 2.4 mg/dL 2.5-5 L Lab Interpretation (test code = Abnormal 88733-0) [facility] 11:43:19 Test Item Value Reference Range Interpretation Comments MAGNESIUM (test code = 0749378682) 1.4 mg/dL 1.7-2.4 L Lab Interpretation (test code = Abnormal 36262-5) [facility] (NA, K, CL, CO2, GLUCOSE, BUN, CREATININE, CA)2021-09-24 11:43:19 Test Item Value Reference Range Interpretation Comments NA (test code = 134 mmol/L 135-145 L 1894364678) K (test code = 4.6 mmol/L 3.5-5 Slight 0946388520) hemolysis CL (test code = 105 mmol/L 98-108 3505459048) CO2 TOTAL (test code 23 mmol/L 23-31 = 8208437520) AGAP (test code = 2-16 7837046691) BUN (test code = 21 mg/dL 7-23 Slight 1889873809) hemolysis GLUCOSE (test code = 159 mg/dL 70-110 H 5385717351) CREATININE (test code 0.71 mg/dL 0.6-1.25 = 0847223126) CALCIUM (test code = 8.4 mg/dL 8.6-10.6 L 5307339697) eGFR (test code = mL/min/1.73m2 8862448063) NICKY (test code = NICKY) Association of Glomerular Filtration Rate (GFR) and Staging of Kidney Disease* + -----+ --------+ +| GFR (mL/min/1.73 m2) ?| With Kidney Damage ?| ?Without Kidney Damage+ +------- +---- --+| ?>90 ?| ?Stage one ?| ? Normal ?+ ------+ ---------+--------- +| ?60-89 ?| ?Stage two ?| ? Decreased GFR ? + -----+ --------+ +| ?30-59 ?| ?Stage three ?| ? Stage three ? + -----+ --------+ +| ?15-29 ?| ?Stage four ? | ? Stage four ?+ ------+ ---------+--------- +| ?<15 (or dialysis) ? ?| ?Stage five ? | ? Stage five ?+ ------+ ---------+--------- + *Each stage assumes the associated GFR level has been in effect for at least three months. ?Stages 1 to 5, with or without kidney disease, indicate chronic kidney disease. Notes: Determination of stages one and two (with eGFR >59mL/min/1.73 m2) requires estimation of kidney damage for at least three months as defined by structural or functional abnormalities of the kidney, manifested by either:Pathological abnormalities or Markers of kidney damage (including abnormalities in the composition of the blood or urine or abnormalities in imaging tests). Lab Interpretation Abnormal (test code = 13191-7) [facility] METABOLIC PANEL (NA, K, CL, CO2, GLUCOSE, BUN, CREATININE, CA)2021-09-24 11:43:19 Test Item Value Reference Range Interpretation Comments NA (test code = 134 mmol/L 135-145 L 2278530349) K (test code = 4.6 mmol/L 3.5-5 Slight 0939396480) hemolysis CL (test code = 105 mmol/L 98-108 4825630459) CO2 TOTAL (test code 23 mmol/L 23-31 = 5416169692) AGAP (test code = 2-16 0954301667) BUN (test code = 21 mg/dL 7-23 Slight 4397697353) hemolysis GLUCOSE (test code = 159 mg/dL 70-110 H 5354725885) CREATININE (test code 0.71 mg/dL 0.6-1.25 = 1929106051) CALCIUM (test code = 8.4 mg/dL 8.6-10.6 L 2437832016) eGFR (test code = mL/min/1.73m2 5360895846) NICKY (test code = NICKY) Association of Glomerular Filtration Rate (GFR) and Staging of Kidney Disease* + -----+ --------+ +| GFR (mL/min/1.73 m2) ?| With Kidney Damage ?| ?Without Kidney Damage+ +------- +---- --+| ?>90 ?| ?Stage one ?| ? Normal ?+ ------+ ---------+--------- +| ?60-89 ?| ?Stage two ?| ? Decreased GFR ? + -----+ --------+ +| ?30-59 ?| ?Stage three ?| ? Stage three ? + -----+ --------+ +| ?15-29 ?| ?Stage four ? | ? Stage four ?+ ------+ ---------+--------- +| ?<15 (or dialysis) ? ?| ?Stage five ? | ? Stage five ?+ ------+ ---------+--------- + *Each stage assumes the associated GFR level has been in effect for at least three months. ?Stages 1 to 5, with or without kidney disease, indicate chronic kidney disease. Notes: Determination of stages one and two (with eGFR >59mL/min/1.73 m2) requires estimation of kidney damage for at least three months as defined by structural or functional abnormalities of the kidney, manifested by either:Pathological abnormalities or Markers of kidney damage (including abnormalities in the composition of the blood or urine or abnormalities in imaging tests). Lab Interpretation Abnormal (test code = 60619-2) [facility] 11:43:19 Test Item Value Reference Range Interpretation Comments MAGNESIUM (test code = 7142459205) 1.4 mg/dL 1.7-2.4 L Lab Interpretation (test code = Abnormal 89521-6) [facility] 11:43:19 Test Item Value Reference Range Interpretation Comments PHOSPHORUS (test code = 0690015580) 2.4 mg/dL 2.5-5 L Lab Interpretation (test code = Abnormal 85214-8) [facility] WITHOUT [id number] 10:57:38 Test Item Value Reference Range Interpretation Comments WBC (test code = See_Comment [Automated message] The 6690-2) system which [employer] nerated this result tra nsmitted reference range : 4.20 - 10.70 10*3/?L. The reference range was not used to interpr et this result as normal/abnormal . RBC (test code = See_Comment [Automated message] The 789-8) system which [employer] nerated this result tra nsmitted reference range : 4.26 - 5.52 10*6/?L. T he reference range was not used to interpr et this result as normal/abnormal . HGB (test code = 13.4 g/dL 12.2-16.4 528-7) HCT (test code = 38.8 % 38.4-49.3 4544-3) MCH (test code = 29.4 pg 26.1-32.7 785-6) MCV (test code = 85.1 fL 81.7-95.6 787-2) MCHC (test code = 34.5 g/dL 31.2-35 786-4) PLT (test code = See_Comment [Automated message] The 777-3) system which nerated this result tra nsmitted reference range : 150 - 328 10*3/?L. Th e reference range was not used to interpr et this result as normal/abnormal . MPV (test code = 10.6 fL 9.8-13 93237-6) RDW-CV (test code = 13.4 % 12.1-15.4 788-0) RDW-SD (test code = 42.0 fL 38.5-51.6 88900-2) NRBC x10^3 (test See_Comment [Automated message] The code = 4140410127) system [facility] generated this result tra nsmitted reference range : 10*3/?L. The reference r sue was not used to int erpret this result as normal/abnormal . NRBC/100 WBC (test See_Comment [Automat ed message] The code = 9580129984) system [facility] generated this result tra nsmitted reference range : 0.0 - 10.0 /100 WBCs. The reference range was not used to interpr et this result as normal/abnormal . IPF % (test code = 2702508807) [facility] WITHOUT [id number] 10:57:38 Test Item Value Reference Range Interpretation Comments WBC (test code = See_Comment [Automated message] The 6690-2) system which nerated this result tra nsmitted reference range : 4.20 - 10.70 10*3/?L. The reference range was not used to interpr et this result as normal/abnormal . RBC (test code = See_Comment [Automated message] The 789-8) system which nerated this result tra nsmitted reference range : 4.26 - 5.52 10*6/?L. T he reference range was not used to interpr et this result as normal/abnormal . HGB (test code = 13.4 g/dL 12.2-16.4 718-7) HCT (test code = 38.8 % 38.4-49.3 4544-3) MCH (test code = 29.4 pg 26.1-32.7 785-6) MCV (test code = 85.1 fL 81.7-95.6 787-2) MCHC (test code = 34.5 g/dL 31.2-35 786-4) PLT (test code = See_Comment [Automated message] The 777-3) system which ge nerated this result tra nsmitted reference range : 150 - 328 10*3/?L. Th e reference range was not used to interpr et this result as normal/abnormal . MPV (test code = 10.6 fL 9.8-13 42769-2) RDW-CV (test code = 13.4 % 12.1-15.4 788-0) RDW-SD (test code = 42.0 fL 38.5-51.6 24417-3) NRBC x10^3 (test See_Comment [Automated message] The code = 5646354793) system [facility] generated this result tra nsmitted reference range : 10*3/?L. The reference r sue was not used to int erpret this result as normal/abnormal . NRBC/100 WBC (test See_Comment [Automat ed message] The code = 7786151242) system [facility] generated this result tra nsmitted reference range : 0.0 - 10.0 /100 WBCs. The reference range was not used to interpr et this result as normal/abnormal . IPF % (test code = 4908675683) [facility] WITHOUT [id number] 10:57:38 Test Item Value Reference Range Interpretation Comments WBC (test code = See_Comment [Automated message] The 6690-2) system which ge nerated this result tra nsmitted reference range : 4.20 - 10.70 10*3/?L. The reference range was not used to interpr et this result as normal/abnormal . RBC (test code = See_Comment [Automated message] The 789-8) system which ge nerated this result tra nsmitted reference range : 4.26 - 5.52 10*6/?L. T he reference range was not used to interpr et this result as normal/abnormal . HGB (test code = 13.4 g/dL 12.2-16.4 718-7) HCT (test code = 38.8 % 38.4-49.3 4544-3) MCH (test code = 29.4 pg 26.1-32.7 785-6) MCV (test code = 85.1 fL 81.7-95.6 787-2) MCHC (test code = 34.5 g/dL 31.2-35 786-4) PLT (test code = See_Comment [Automated message] The 777-3) system which ge nerated this result tra nsmitted reference range : 150 - 328 10*3/?L. e reference range was not used to interpr et this result as normal/abnormal . MPV (test code = 10.6 fL 9.8-13 20685-4) RDW-CV (test code = 13.4 % 12.1-15.4 788-0) RDW-SD (test code = 42.0 fL 38.5-51.6 90534-1) NRBC x10^3 (test See_Comment [Automated message] The code = 2826843525) system [facility] generated this result tra nsmitted reference range : 10*3/?L. The reference r sue was not used to int erpret this result as normal/abnormal . NRBC/100 WBC (test See_Comment [Automat ed message] The code = 6111328997) system [facility] generated this result tra nsmitted reference range : 0.0 - 10.0 /100 WBCs. The reference range was not used to interpr et this result as normal/abnormal . IPF % (test code = 9109765131) [facility] WITHOUT [id number] 10:57:38 Test Item Value Reference Range Interpretation Comments WBC (test code = See_Comment [Automated message] The 6990-2) system which ge nerated this result tra nsmitted reference range : 4.20 - 10.70 10*3/?L. The reference range was not used to interpr et this result as normal/abnormal . RBC (test code = See_Comment [Automated message] The 789-8) system which ge nerated this result tra nsmitted reference range : 4.26 - 5.52 10*6/?L. T he reference range was not used to interpr et this result as normal/abnormal . HGB (test code = 13.4 g/dL 12.2-16.4 718-7) HCT (test code = 38.8 % 38.4-49.3 4544-3) MCH (test code = 29.4 pg 26.1-32.7 785-6) MCV (test code = 85.1 fL 81.7-95.6 787-2) MCHC (test code = 34.5 g/dL 31.2-35 786-4) PLT (test code = See_Comment [Automated message] The 777-3) system which ge nerated this result tra nsmitted reference range : 150 - 328 10*3/?L. Th e reference range was not used to interpr et this result as normal/abnormal . MPV (test code = 10.6 fL 9.8-13 59982-6) RDW-CV (test code = 13.4 % 12.1-15.4 788-0) RDW-SD (test code = 42.0 fL 38.5-51.6 69457-2) NRBC x10^3 (test See_Comment [Automated message] The code = 6678730591) system [facility] generated this result tra nsmitted reference range : 10*3/?L. The reference r sue was not used to int erpret this result as normal/abnormal . NRBC/100 WBC (test See_Comment [Automat ed message] The code = 9103930716) system [facility] generated this result tra nsmitted reference range : 0.0 - 10.0 /100 WBCs. The reference range was not used to interpr et this result as normal/abnormal . IPF % (test code = 2138881792) [facility] GLUCOSE (AUTOMATED)2021-09-24 10:47:56 Test Item Value Reference Range Interpretation Comments POCT GLU (test code = 5285005787) 163 mg/dL 70-110 H Lab Interpretation (test code = Abnormal 99154-1) [facility] GLUCOSE (AUTOMATED)2021-09-24 10:47:56 Test Item Value Reference Range Interpretation Comments POCT GLU (test code = 3811513470) 163 mg/dL 70-110 H Lab Interpretation (test code = Abnormal 59333-5) [facility] GLUCOSE (AUTOMATED)2021-09-24 10:47:56 Test Item Value Reference Range Interpretation Comments POCT GLU (test code = 3802313213) 163 mg/dL 70-110 H Lab Interpretation (test code = Abnormal 70583-7) [facility] GLUCOSE (AUTOMATED)2021-09-24 04:39:14 Test Item Value Reference Range Interpretation Comments POCT GLU (test code = 5071415587) 147 mg/dL 70-110 H Lab Interpretation (test code = Abnormal 22473-4) [facility] GLUCOSE (AUTOMATED)2021-09-24 04:39:14 Test Item Value Reference Range Interpretation Comments POCT GLU (test code = 7293797405) 147 mg/dL 70-110 H Lab Interpretation (test code = Abnormal 27729-3) [facility] GLUCOSE (AUTOMATED)2021-09-24 04:39:14 Test Item Value Reference Range Interpretation Comments POCT GLU (test code = 7564855185) 147 mg/dL 70-110 H Lab Interpretation (test code = Abnormal 09681-6) [facility] GLUCOSE (AUTOMATED)2021-09-23 22:11:52 Test Item Value Reference Range Interpretation Comments POCT GLU (test code = 9970316116) 165 mg/dL 70-110 H Lab Interpretation (test code = Abnormal 06210-6) [facility] GLUCOSE (AUTOMATED)2021-09-23 22:11:52 Test Item Value Reference Range Interpretation Comments POCT GLU (test code = 9734407697) 165 mg/dL 70-110 H Lab Interpretation (test code = Abnormal 45851-0) [facility] GLUCOSE (AUTOMATED)2021-09-23 22:11:52 Test Item Value Reference Range Interpretation Comments POCT GLU (test code = 8349826610) 165 mg/dL 70-110 H Lab Interpretation (test code = Abnormal 10127-1) [facility] GLUCOSE (AUTOMATED)2021-09-23 17:31:06 Test Item Value Reference Range Interpretation Comments POCT GLU (test code = 4080254456) 183 mg/dL 70-110 H Lab Interpretation (test code = Abnormal 27069-5) [facility] GLUCOSE (AUTOMATED)2021-09-23 17:31:06 Test Item Value Reference Range Interpretation Comments POCT GLU (test code = 5297829587) 183 mg/dL 70-110 H Lab Interpretation (test code = Abnormal 25345-5) [facility] GLUCOSE (AUTOMATED)2021-09-23 17:31:06 Test Item Value Reference Range Interpretation Comments POCT GLU (test code = 6217096192) 183 mg/dL 70-110 H Lab Interpretation (test code = Abnormal 18337-3) [facility] METABOLIC PANEL (NA, K, CL, CO2, GLUCOSE, BUN, CREATININE, CA)2021-09-23 11:29:37 Test Item Value Reference Range Interpretation Comments NA (test code = 134 mmol/L 135-145 L 4773058246) K (test code = 4.3 mmol/L 3.5-5 3186180501) CL (test code = 104 mmol/L 98-108 1195833825) CO2 TOTAL (test code = 27 mmol/L 23-31 8525373913) AGAP (test code = 2-16 3917829817) BUN (test code = 37 mg/dL 7-23 H 0275106549) GLUCOSE (test code = 245 mg/dL 70-110 H 6282862154) CREATININE (test code = 1.22 mg/dL 0.6-1.25 2283661439) CALCIUM (test code = 8.6 mg/dL 8.6-10.6 7671679477) eGFR (test code = mL/min/1.73m2 2984471091) NICKY (test code = NICKY) Association of Glomerular Filtration Rate (GFR) and Staging of Kidney Disease* + --+ --+ ------+| GFR (mL/min/1.73 m2) ?| With Kidney Damage ?| ?Without Kidney Damage+ --------+ --------+ +| ?>90 ?| ?Stage one ?| ? Normal ?+ ---+ ---+ -------+| ?60-89 ?| ?Stage two ?| ? Decreased GFR ? + --+ --+ ------+| ?30-59 ?| ?Stage three ?| ? Stage three ? + --+ --+ ------+| ?15-29 ?| ?Stage four ? | ? Stage four ?+ ---+ ---+ -------+| ?<15 (or dialysis) ? ?| ?Stage five ? | ? Stage five ?+ ---+ ---+ -------+ *Each stage assumes the associated GFR level has been in effect for at least three months. ?Stages 1 to 5, with or without kidney disease, indicate chronic kidney disease. Notes: Determination of stages one and two (with eGFR >59mL/min/1.73 m2) requires estimation of kidney damage for at least three months as defined by structural or functional abnormalities of the kidney, manifested by either:Pathological abnormalities or Markers of kidney damage (including abnormalities in the composition of the blood or urine or abnormalities in imaging tests). Lab Interpretation Abnormal (test code = 10353-0) [facility]09753[facility] (ALB,T.PRO,BILI T,BU/BC,ALT,AST,ALK PHOS)2021-09-23 11:29:37 Test Item Value Reference Range Interpretation Comments TOTAL BILI (test code = 4706921707) 6.4 mg/dL 0.1-1.1 H BILI UNCON (test code = 7511326743) 1.7 mg/dL 0.1-1.1 H BILI CONJ (test code = 5205046387) 3.1 mg/dL 0-0.3 H T PROTEIN (test code = 9717851556) 6.0 g/dL 6.3-8.2 L ALBUMIN (test code = 0895363225) 3.4 g/dL 3.5-5 L ALK PHOS (test code = 7613651703) 195 U/L 34-122 H ALTv (test code = 1742-6) 332 U/L 5-50 H AST(SGOT) (test code = 4665787724) 109 U/L 13-40 H Lab Interpretation (test code = Abnormal 26187-1) [facility] 11:29:37 Test Item Value Reference Range Interpretation Comments MAGNESIUM (test code = 3560963431) 1.6 mg/dL 1.7-2.4 L Lab Interpretation (test code = Abnormal 06093-0) [facility] 11:29:37 Test Item Value Reference Range Interpretation Comments PHOSPHORUS (test code = 6919669458) 3.6 mg/dL 2.5-5 Lab Interpretation (test code = Normal 75801-6) [facility] METABOLIC PANEL (NA, K, CL, CO2, GLUCOSE, BUN, CREATININE, CA)2021-09-23 11:29:37 Test Item Value Reference Range Interpretation Comments NA (test code = 134 mmol/L 135-145 L 9161977180) K (test code = 4.3 mmol/L 3.5-5 3195654639) CL (test code = 104 mmol/L 98-108 9472692044) CO2 TOTAL (test code = 27 mmol/L 23-31 4491304948) AGAP (test code = 2-16 6320125883) BUN (test code = 37 mg/dL 7-23 H 0113345507) GLUCOSE (test code = 245 mg/dL 70-110 H 3601704577) CREATININE (test code = 1.22 mg/dL 0.6-1.25 4636089614) CALCIUM (test code = 8.6 mg/dL 8.6-10.6 3385015012) eGFR (test code = mL/min/1.73m2 9520441231) NICKY (test code = NICKY) Association of Glomerular Filtration Rate (GFR) and Staging of Kidney Disease* + --+ --+ ------+| GFR (mL/min/1.73 m2) ?| With Kidney Damage ?| ?Without Kidney Damage+ --------+ --------+ +| ?>90 ?| ?Stage one ?| ? Normal ?+ ---+ ---+ -------+| ?60-89 ?| ?Stage two ?| ? Decreased GFR ? + --+ --+ ------+| ?30-59 ?| ?Stage three ?| ? Stage three ? + --+ --+ ------+| ?15-29 ?| ?Stage four ? | ? Stage four ?+ ---+ ---+ -------+| ?<15 (or dialysis) ? ?| ?Stage five ? | ? Stage five ?+ ---+ ---+ -------+ *Each stage assumes the associated GFR level has been in effect for at least three months. ?Stages 1 to 5, with or without kidney disease, indicate chronic kidney disease. Notes: Determination of stages one and two (with eGFR >59mL/min/1.73 m2) requires estimation of kidney damage for at least three months as defined by structural or functional abnormalities of the kidney, manifested by either:Pathological abnormalities or Markers of kidney damage (including abnormalities in the composition of the blood or urine or abnormalities in imaging tests). Lab Interpretation Abnormal (test code = 46744-4) [facility][id number][facility] (ALB,T.PRO,BILI T,BU/BC,ALT,AST,ALK PHOS)2021-09-23 11:29:37 Test Item Value Reference Range Interpretation Comments TOTAL BILI (test code = 4403272451) 6.4 mg/dL 0.1-1.1 H BILI UNCON (test code = 7648841119) 1.7 mg/dL 0.1-1.1 H BILI CONJ (test code = 0930661939) 3.1 mg/dL 0-0.3 H T PROTEIN (test code = 2095960391) 6.0 g/dL 6.3-8.2 L ALBUMIN (test code = 8220914303) 3.4 g/dL 3.5-5 L ALK PHOS (test code = 1836293910) 195 U/L 34-122 H ALTv (test code = 1742-6) 332 U/L 5-50 H AST(SGOT) (test code = 9921838295) 109 U/L 13-40 H Lab Interpretation (test code = Abnormal 82918-9) [facility] 11:29:37 Test Item Value Reference Range Interpretation Comments MAGNESIUM (test code = 7342777110) 1.6 mg/dL 1.7-2.4 L Lab Interpretation (test code = Abnormal 59265-8) [facility] 11:29:37 Test Item Value Reference Range Interpretation Comments PHOSPHORUS (test code = 2756033919) 3.6 mg/dL 2.5-5 Lab Interpretation (test code = Normal 88103-5) [facility] (NA, K, CL, CO2, GLUCOSE, BUN, CREATININE, CA)2021-09-23 11:29:37 Test Item Value Reference Range Interpretation Comments NA (test code = 134 mmol/L 135-145 L 8081961001) K (test code = 4.3 mmol/L 3.5-5 3265931959) CL (test code = 104 mmol/L 98-108 6030514994) CO2 TOTAL (test code = 27 mmol/L 23-31 0537775243) AGAP (test code = 2-16 7936492684) BUN (test code = 37 mg/dL 7-23 H 7479519869) GLUCOSE (test code = 245 mg/dL 70-110 H 7810117827) CREATININE (test code = 1.22 mg/dL 0.6-1.25 8167478947) CALCIUM (test code = 8.6 mg/dL 8.6-10.6 0613349163) eGFR (test code = mL/min/1.73m2 8516562627) NICKY (test code = NICKY) Association of Glomerular Filtration Rate (GFR) and Staging of Kidney Disease* + --+ --+ ------+| GFR (mL/min/1.73 m2) ?| With Kidney Damage ?| ?Without Kidney Damage+ --------+ --------+ +| ?>90 ?| ?Stage one ?| ? Normal ?+ ---+ ---+ -------+| ?60-89 ?| ?Stage two ?| ? Decreased GFR ? + --+ --+ ------+| ?30-59 ?| ?Stage three ?| ? Stage three ? + --+ --+ ------+| ?15-29 ?| ?Stage four ? | ? Stage four ?+ ---+ ---+ -------+| ?<15 (or dialysis) ? ?| ?Stage five ? | ? Stage five ?+ ---+ ---+ -------+ *Each stage assumes the associated GFR level has been in effect for at least three months. ?Stages 1 to 5, with or without kidney disease, indicate chronic kidney disease. Notes: Determination of stages one and two (with eGFR >59mL/min/1.73 m2) requires estimation of kidney damage for at least three months as defined by structural or functional abnormalities of the kidney, manifested by either:Pathological abnormalities or Markers of kidney damage (including abnormalities in the composition of the blood or urine or abnormalities in imaging tests). Lab Interpretation Abnormal (test code = 31073-1) [facility]20938[facility] (ALB,T.PRO,BILI T,BU/BC,ALT,AST,ALK PHOS)2021-09-23 11:29:37 Test Item Value Reference Range Interpretation Comments TOTAL BILI (test code = 6780293247) 6.4 mg/dL 0.1-1.1 H BILI UNCON (test code = 7187399241) 1.7 mg/dL 0.1-1.1 H BILI CONJ (test code = 1047661573) 3.1 mg/dL 0-0.3 H T PROTEIN (test code = 9587491688) 6.0 g/dL 6.3-8.2 L ALBUMIN (test code = 5914620392) 3.4 g/dL 3.5-5 L ALK PHOS (test code = 3697039139) 195 U/L 34-122 H ALTv (test code = 1742-6) 332 U/L 5-50 H AST(SGOT) (test code = 7819230722) 109 U/L 13-40 H Lab Interpretation (test code = Abnormal 21409-3) [facility] 11:29:37 Test Item Value Reference Range Interpretation Comments MAGNESIUM (test code = 3012726230) 1.6 mg/dL 1.7-2.4 L Lab Interpretation (test code = Abnormal 45720-8) [facility] 11:29:37 Test Item Value Reference Range Interpretation Comments PHOSPHORUS (test code = 3014111052) 3.6 mg/dL 2.5-5 Lab Interpretation (test code = Normal 64357-7) [facility]ATED)2021-09-23 11:23:59 Test Item Value Reference Range Interpretation Comments POCT GLU (test code = 6269082309) 239 mg/dL 70-110 H Lab Interpretation (test code = Abnormal 83712-7) [facility]SE (AUTOMATED)2021-09-23 11:23:59 Test Item Value Reference Range Interpretation Comments POCT GLU (test code = 6025795694) 239 mg/dL 70-110 H Lab Interpretation (test code = Abnormal 02739-6) [facility]2021-09-23 11:23:59 Test Item Value Reference Range Interpretation Comments POCT GLU (test code = 6799876186) 239 mg/dL 70-110 H Lab Interpretation (test code = Abnormal 09991-4) [facility] WITH [id number] 11:09:36 Test Item Value Reference Range Interpretation Comments WBC (test code = See_Comment [Automated 6690-2) message] The sy stem which generated this result transmitted reference range : 4.20 - 10.70 10*3/?L. The reference range was not used to interpret this result as normal/abnormal . RBC (test code = See_Comment L [Automated 789-8) message] The sy stem which generated this result transmitted reference range : 4.26 - 5.52 10*6/?L. The reference range was not used to interpret this result as normal/abnormal . HGB (test code = 12.4 g/dL 12.2-16.4 718-7) HCT (test code = 36.4 % 38.4-49.3 L 4544-3) MCV (test code = 85.6 fL 81.7-95.6 787-2) MCH (test code = 29.2 pg 26.1-32.7 785-6) MCHC (test code = 34.1 g/dL 31.2-35 786-4) RDW-SD (test code = 42.6 fL 38.5-51.6 49318-4) RDW-CV (test code = 13.7 % 12.1-15.4 788-0) PLT (test code = See_Comment L [Automated 777-3) message] The sy stem which generated this result transmitted reference range : 150 - 328 10*3/ ?L. The reference r sue was not used to interpret this result as normal/abnormal . MPV (test code = 10.2 fL 9.8-13 42062-0) NRBC/100 WBC (test See_Comment [Automat ed code = 2532005882) message] The system which generated this result transmitted reference range : 0.0 - 10.0 /100 WBCs. The refer ence range was not u sed to interpret th is result as normal/abnormal . NRBC x10^3 (test code See_Comment [Auto mated = 8928152240) message] The s ystem which generated this result transmitted reference range : 10*3/?L. The reference range was not used to interpret this result as normal/abnormal . GRAN MAT (NEUT) % 75.1 % (test code = 770-8) IMM GRAN % (test code 0.50 % = 3016005276) LYMPH % (test code = 13.1 % 736-9) MONO % (test code = 8.4 % 5905-5) EOS % (test code = 2.4 % 713-8) BASO % (test code = 0.5 % 706-2) GRAN MAT x10^3(ANC) 6.94 10*3/uL 1.99-6.95 (test code = 6506815108) IMM GRAN x10^3 (test 0.05 10*3/uL 0-0.06 code = 9129883836) LYMPH x10^3 (test code 1.21 10*3/uL 1.09-3.23 = 731-0) MONO x10^3 (test code 0.78 10*3/uL 0.36-1.02 = 742-7) EOS x10^3 (test code = 0.22 10*3/uL 0.06-0.53 711-2) BASO x10^3 (test code 0.05 10*3/uL 0.01-0.09 = 704-7) Lab Interpretation Abnormal (test code = 28605-1) [facility] WITH [id number] 11:09:36 Test Item Value Reference Range Interpretation Comments WBC (test code = See_Comment [Automated 7190-2) message] The sy stem which generated this result transmitted reference range : 4.20 - 10.70 10*3/?L. The reference range was not used to interpret this result as normal/abnormal . RBC (test code = See_Comment L [Automated 629-8) message] The sy stem which generated this result transmitted reference range : 4.26 - 5.52 10*6/?L. The reference range was not used to interpret this result as normal/abnormal . HGB (test code = 12.4 g/dL 12.2-16.4 718-7) HCT (test code = 36.4 % 38.4-49.3 L 4544-3) MCV (test code = 85.6 fL 81.7-95.6 787-2) MCH (test code = 29.2 pg 26.1-32.7 785-6) MCHC (test code = 34.1 g/dL 31.2-35 786-4) RDW-SD (test code = 42.6 fL 38.5-51.6 08881-4) RDW-CV (test code = 13.7 % 12.1-15.4 788-0) PLT (test code = See_Comment L [Automated 777-3) message] The sy stem which generated this result transmitted reference range : 150 - 328 10*3/ ?L. The reference r sue was not used to interpret this result as normal/abnormal . MPV (test code = 10.2 fL 9.8-13 42990-8) NRBC/100 WBC (test See_Comment [Automat ed code = 7710792657) message] The system which generated this result transmitted reference range : 0.0 - 10.0 /100 WBCs. The refer ence range was not u sed to interpret th is result as normal/abnormal . NRBC x10^3 (test code See_Comment [Auto mated = 7025409913) message] The s ystem which generated this result transmitted reference range : 10*3/?L. The reference range was not used to interpret this result as normal/abnormal . GRAN MAT (NEUT) % 75.1 % (test code = 770-8) IMM GRAN % (test code 0.50 % = 1743871353) LYMPH % (test code = 13.1 % 736-9) MONO % (test code = 8.4 % 5905-5) EOS % (test code = 2.4 % 713-8) BASO % (test code = 0.5 % 706-2) GRAN MAT x10^3(ANC) 6.94 10*3/uL 1.99-6.95 (test code = 9661941804) IMM GRAN x10^3 (test 0.05 10*3/uL 0-0.06 code = 7888089703) LYMPH x10^3 (test code 1.21 10*3/uL 1.09-3.23 = 731-0) MONO x10^3 (test code 0.78 10*3/uL 0.36-1.02 = 742-7) EOS x10^3 (test code = 0.22 10*3/uL 0.06-0.53 711-2) BASO x10^3 (test code 0.05 10*3/uL 0.01-0.09 = 704-7) Lab Interpretation Abnormal (test code = 26902-1) [facility] WITH [id number] 11:09:36 Test Item Value Reference Range Interpretation Comments WBC (test code = See_Comment [Automated 6290-2) message] The sy stem which generated this result transmitted reference range : 4.20 - 10.70 10*3/?L. The reference range was not used to interpret this result as normal/abnormal . RBC (test code = See_Comment L [Automated 649-8) message] The sy stem which generated this result transmitted reference range : 4.26 - 5.52 10*6/?L. The reference range was not used to interpret this result as normal/abnormal . HGB (test code = 12.4 g/dL 12.2-16.4 718-7) HCT (test code = 36.4 % 38.4-49.3 L 4544-3) MCV (test code = 85.6 fL 81.7-95.6 787-2) MCH (test code = 29.2 pg 26.1-32.7 785-6) MCHC (test code = 34.1 g/dL 31.2-35 786-4) RDW-SD (test code = 42.6 fL 38.5-51.6 41111-6) RDW-CV (test code = 13.7 % 12.1-15.4 788-0) PLT (test code = See_Comment L [Automated 777-3) message] The sy stem which generated this result transmitted reference range : 150 - 328 10*3/ ?L. The reference r sue was not used to interpret this result as normal/abnormal . MPV (test code = 10.2 fL 9.8-13 23259-4) NRBC/100 WBC (test See_Comment [Automat ed code = 9030890310) message] The system which generated this result transmitted reference range : 0.0 - 10.0 /100 WBCs. The refer ence range was not u sed to interpret th is result as normal/abnormal . NRBC x10^3 (test code See_Comment [Auto mated = 9217969829) message] The s ystem which generated this result transmitted reference range : 10*3/?L. The reference range was not used to interpret this result as normal/abnormal . GRAN MAT (NEUT) % 75.1 % (test code = 770-8) IMM GRAN % (test code 0.50 % = 9715095882) LYMPH % (test code = 13.1 % 736-9) MONO % (test code = 8.4 % 5905-5) EOS % (test code = 2.4 % 713-8) BASO % (test code = 0.5 % 706-2) GRAN MAT x10^3(ANC) 6.94 10*3/uL 1.99-6.95 (test code = 6699103637) IMM GRAN x10^3 (test 0.05 10*3/uL 0-0.06 code = 6619226947) LYMPH x10^3 (test code 1.21 10*3/uL 1.09-3.23 = 731-0) MONO x10^3 (test code 0.78 10*3/uL 0.36-1.02 = 742-7) EOS x10^3 (test code = 0.22 10*3/uL 0.06-0.53 711-2) BASO x10^3 (test code 0.05 10*3/uL 0.01-0.09 = 704-7) Lab Interpretation Abnormal (test code = 77210-2) [facility] WITH [id number] 11:09:36 Test Item Value Reference Range Interpretation Comments WBC (test code = See_Comment [Automated 6690-2) message] The sy stem which generated this result transmitted reference range : 4.20 - 10.70 10*3/?L. The reference range was not used to interpret this result as normal/abnormal . RBC (test code = See_Comment L [Automated 789-8) message] The sy stem which generated this result transmitted reference range : 4.26 - 5.52 10*6/?L. The reference range was not used to interpret this result as normal/abnormal . HGB (test code = 12.4 g/dL 12.2-16.4 718-7) HCT (test code = 36.4 % 38.4-49.3 L 4544-3) MCV (test code = 85.6 fL 81.7-95.6 787-2) MCH (test code = 29.2 pg 26.1-32.7 785-6) MCHC (test code = 34.1 g/dL 31.2-35 786-4) RDW-SD (test code = 42.6 fL 38.5-51.6 16412-8) RDW-CV (test code = 13.7 % 12.1-15.4 788-0) PLT (test code = See_Comment L [Automated 777-3) message] The sy stem which generated this result transmitted reference range : 150 - 328 10*3/ ?L. The reference r sue was not used to interpret this result as normal/abnormal . MPV (test code = 10.2 fL 9.8-13 19039-1) NRBC/100 WBC (test See_Comment [Automat ed code = 7059063780) message] The system which generated this result transmitted reference range : 0.0 - 10.0 /100 WBCs. The refer ence range was not u sed to interpret th is result as normal/abnormal . NRBC x10^3 (test code See_Comment [Auto mated = 1181347196) message] The s ystem which generated this result transmitted reference range : 10*3/?L. The reference range was not used to interpret this result as normal/abnormal . GRAN MAT (NEUT) % 75.1 % (test code = 770-8) IMM GRAN % (test code 0.50 % = 9949310346) LYMPH % (test code = 13.1 % 736-9) MONO % (test code = 8.4 % 5905-5) EOS % (test code = 2.4 % 713-8) BASO % (test code = 0.5 % 706-2) GRAN MAT x10^3(ANC) 6.94 10*3/uL 1.99-6.95 (test code = 9027080569) IMM GRAN x10^3 (test 0.05 10*3/uL 0-0.06 code = 1736286646) LYMPH x10^3 (test code 1.21 10*3/uL 1.09-3.23 = 731-0) MONO x10^3 (test code 0.78 10*3/uL 0.36-1.02 = 742-7) EOS x10^3 (test code = 0.22 10*3/uL 0.06-0.53 711-2) BASO x10^3 (test code 0.05 10*3/uL 0.01-0.09 = 704-7) Lab Interpretation Abnormal (test code = 87209-1) [facility] [id number] 01:58:23 Test Item Value Reference Interpretation Comments Range TROPONIN I (test 0.010 ng/mL See_Comment [Automated code = 8255042502) message] The system which generated this result transmitted reference range : <=0.034. The reference range was not used to interpret this result as normal/abnormal . NICKY (test code = Reference (Normal) NICKY) Range (defined by the 99th percentile reference limit): <= 0.034 ng/mL Note: Cardiac troponin begins to rise 3-4 hours after the onset of ischemia. Repeat in 4-6 hours if the sample was drawn within 3-4 hours of the onset of the symptom and found normal. Diagnosis of myocardial injury is made with acute changes in cTn concentrations with at least one serial sample above the 99th percentile upper reference limit (URL), taken together with the patient's clinical presentation. Biotin has been reported to cause a negative bias, interpret results relative to patient's use of biotin. Lab Interpretation Normal (test code = 19003-3) [facility] [id number] 01:58:23 Test Item Value Reference Interpretation Comments Range TROPONIN I (test 0.010 ng/mL See_Comment [Automated code = 0552176662) message] The system which generated this result transmitted reference range : <=0.034. The reference range was not used to interpret this result as normal/abnormal . NICKY (test code = Reference (Normal) NICKY) Range (defined by the 99th percentile reference limit): <= 0.034 ng/mL Note: Cardiac troponin begins to rise 3-4 hours after the onset of ischemia. Repeat in 4-6 hours if the sample was drawn within 3-4 hours of the onset of the symptom and found normal. Diagnosis of myocardial injury is made with acute changes in cTn concentrations with at least one serial sample above the 99th percentile upper reference limit (URL), taken together with the patient's clinical presentation. Biotin has been reported to cause a negative bias, interpret results relative to patient's use of biotin. Lab Interpretation Normal (test code = 49513-7) [facility] 00:12:34 Test Item Value Reference Range Interpretation Comments MAGNESIUM (test code = 9696604027) 1.1 mg/dL 1.7-2.4 L Lab Interpretation (test code = Abnormal 49132-8) [facility] [id number] 00:05:35 Test Item Value Reference Interpretation Comments Range TROPONIN I (test 0.009 ng/mL See_Comment [Automated code = 1350008427) message] The system which generated this result transmitted reference range : <=0.034. The reference range was not used to interpret this result as normal/abnormal . NICKY (test code = Reference (Normal) NICKY) Range (defined by the 99th percentile reference limit): <= 0.034 ng/mL Note: Cardiac troponin begins to rise 3-4 hours after the onset of ischemia. Repeat in 4-6 hours if the sample was drawn within 3-4 hours of the onset of the symptom and found normal. Diagnosis of myocardial injury is made with acute changes in cTn concentrations with at least one serial sample above the 99th percentile upper reference limit (URL), taken together with the patient's clinical presentation. Biotin has been reported to cause a negative bias, interpret results relative to patient's use of biotin. Lab Interpretation Normal (test code = 29702-1) [facility] [id number] 00:02:29 Test Item Value Reference Range Interpretation Comments NT-proBNP (test code 565 pg/mL See_Comment H [Autom ated = 8846763609) message] The system which generated this result transmitted reference range : <=125. The reference range was not used to interpret this result as normal/abnormal . NICKY (test code = NICKY) Biotin has been reported to cause a negative bias, interpret results relative to patient's use of biotin. Lab Interpretation Abnormal (test code = 97684-7) [facility] [id number] 00:02:29 Test Item Value Reference Range Interpretation Comments NT-proBNP (test code 565 pg/mL See_Comment H [Autom ated = 6670204599) message] The system which generated this result transmitted reference range : <=125. The reference range was not used to interpret this result as normal/abnormal . NICKY (test code = NICKY) Biotin has been reported to cause a negative bias, interpret results relative to patient's use of biotin. Lab Interpretation Abnormal (test code = 89822-6) [facility] METABOLIC PANEL ([id number])2021-09-22 23:53:31 Test Item Value Reference Range Interpretation Comments NA (test code = 138 mmol/L 135-145 0778285136) K (test code = 4.7 mmol/L 3.5-5 2025795001) CL (test code = 93 mmol/L 98-108 L 7944769193) CO2 TOTAL (test code = 31 mmol/L 23-31 5177735334) AGAP (test code = 2-16 9325770583) BUN (test code = 35 mg/dL 7-23 H 3526528732) GLUCOSE (test code = 290 mg/dL 70-110 H 3638818878) CREATININE (test code = 1.10 mg/dL 0.6-1.25 2832449328) TOTAL BILI (test code = 8.6 mg/dL 0.1-1.1 H 1200637293) CALCIUM (test code = 10.7 mg/dL 8.6-10.6 H 7367940221) T PROTEIN (test code = 7.9 g/dL 6.3-8.2 4677054883) ALBUMIN (test code = 4.6 g/dL 3.5-5 2796581518) ALK PHOS (test code = 257 U/L 34-122 H 5269982194) ALTv (test code = 538 U/L 5-50 H 1742-6) AST(SGOT) (test code = 244 U/L 13-40 H 4930499948) eGFR (test code = mL/min/1.73m2 4883207395) NICKY (test code = NICKY) Association of Glomerular Filtration Rate (GFR) and Staging of Kidney Disease* + --+ --+ ------+| GFR (mL/min/1.73 m2) ?| With Kidney Damage ?| ?Without Kidney Damage+ --------+ --------+ +| ?>90 ?| ?Stage one ?| ? Normal ?+ ---+ ---+ -------+| ?60-89 ?| ?Stage two ?| ? Decreased GFR ? + --+ --+ ------+| ?30-59 ?| ?Stage three ?| ? Stage three ? + --+ --+ ------+| ?15-29 ?| ?Stage four ? | ? Stage four ?+ ---+ ---+ -------+| ?<15 (or dialysis) ? ?| ?Stage five ? | ? Stage five ?+ ---+ ---+ -------+ *Each stage assumes the associated GFR level has been in effect for at least three months. ?Stages 1 to 5, with or without kidney disease, indicate chronic kidney disease. Notes: Determination of stages one and two (with eGFR >59mL/min/1.73 m2) requires estimation of kidney damage for at least three months as defined by structural or functional abnormalities of the kidney, manifested by either:Pathological abnormalities or Markers of kidney damage (including abnormalities in the composition of the blood or urine or abnormalities in imaging tests). Lab Interpretation Abnormal (test code = 71463-7) [facility]. METABOLIC PANEL ([id number])2021-09-22 23:53:31 Test Item Value Reference Range Interpretation Comments NA (test code = 138 mmol/L 135-145 5200405613) K (test code = 4.7 mmol/L 3.5-5 9757483085) CL (test code = 93 mmol/L 98-108 L 7077156754) CO2 TOTAL (test code = 31 mmol/L 23-31 3618280062) AGAP (test code = 2-16 1040136600) BUN (test code = 35 mg/dL 7-23 H 4638170377) GLUCOSE (test code = 290 mg/dL 70-110 H 7780768805) CREATININE (test code = 1.10 mg/dL 0.6-1.25 1279005459) TOTAL BILI (test code = 8.6 mg/dL 0.1-1.1 H 4504313158) CALCIUM (test code = 10.7 mg/dL 8.6-10.6 H 0182230557) T PROTEIN (test code = 7.9 g/dL 6.3-8.2 9857334781) ALBUMIN (test code = 4.6 g/dL 3.5-5 5844084557) ALK PHOS (test code = 257 U/L 34-122 H 5489799346) ALTv (test code = 538 U/L 5-50 H 1742-6) AST(SGOT) (test code = 244 U/L 13-40 H 8597767929) eGFR (test code = mL/min/1.73m2 8855877250) NICKY (test code = NICKY) Association of Glomerular Filtration Rate (GFR) and Staging of Kidney Disease* + --+ --+ ------+| GFR (mL/min/1.73 m2) ?| With Kidney Damage ?| ?Without Kidney Damage+ --------+ --------+ +| ?>90 ?| ?Stage one ?| ? Normal ?+ ---+ ---+ -------+| ?60-89 ?| ?Stage two ?| ? Decreased GFR ? + --+ --+ ------+| ?30-59 ?| ?Stage three ?| ? Stage three ? + --+ --+ ------+| ?15-29 ?| ?Stage four ? | ? Stage four ?+ ---+ ---+ -------+| ?<15 (or dialysis) ? ?| ?Stage five ? | ? Stage five ?+ ---+ ---+ -------+ *Each stage assumes the associated GFR level has been in effect for at least three months. ?Stages 1 to 5, with or without kidney disease, indicate chronic kidney disease. Notes: Determination of stages one and two (with eGFR >59mL/min/1.73 m2) requires estimation of kidney damage for at least three months as defined by structural or functional abnormalities of the kidney, manifested by either:Pathological abnormalities or Markers of kidney damage (including abnormalities in the composition of the blood or urine or abnormalities in imaging tests). Lab Interpretation Abnormal (test code = 45642-2) [facility] 23:53:26 Test Item Value Reference Range Interpretation Comments LIPASE (test code = 1774107524) 227 U/L 0-220 H Lab Interpretation (test code = Abnormal 48369-5) [facility]53[facility]26 Test Item Value Reference Range Interpretation Comments LIPASE (test code = 5346421553) 227 U/L 0-220 H Lab Interpretation (test code = Abnormal 34468-4) [facility] [id number] 23:43:27 Test Item Value Reference Range Interpretation Comments WBC (test code = See_Comment H [Automated 9490-2) message] The system which generated this result transmit nhi reference range : 4.20 - 10.70 10*3/?L. The reference range was not used to interpret this result as normal/abnormal . RBC (test code = See_Comment H [Automated 969-8) message] The system which generated this result transmit nhi reference range : 4.26 - 5.52 10*6/?L. The reference range was not used to interpret this result as normal/abnormal . HGB (test code = 16.2 g/dL 12.2-16.4 718-7) HCT (test code = 46.9 % 38.4-49.3 4544-3) MCV (test code = 83.2 fL 81.7-95.6 787-2) MCH (test code = 28.7 pg 26.1-32.7 785-6) MCHC (test code = 34.5 g/dL 31.2-35 786-4) RDW-SD (test code = 40.8 fL 38.5-51.6 64964-0) RDW-CV (test code = 13.4 % 12.1-15.4 788-0) PLT (test code = See_Comment [Automated 777-3) message] The system which generated this result transmit nhi reference range : 150 - 328 10*3/ ?L. The reference range was not u sed to interpret th is result as normal/abnormal . MPV (test code = 10.0 fL 9.8-13 95144-7) NRBC/100 WBC (test See_Comment [Automat ed code = [id number]) message] The system which generated this result transmit nhi reference range : 0.0 - 10.0 /100 WBCs. The reference range was not used to interpret this result as normal/abnormal . NRBC x10^3 (test code See_Comment [Auto mated = [id number]) message] The system which generated this result transmit nhi reference range : 10*3/?L. The reference range was not used to interpret this result as normal/abnormal . GRAN MAT (NEUT) % 91.6 % (test code = 770-8) IMM GRAN % (test code 0.50 % = 3769519353) LYMPH % (test code = 3.9 % 736-9) MONO % (test code = 3.0 % 5905-5) EOS % (test code = 0.6 % 713-8) BASO % (test code = 0.4 % 706-2) GRAN MAT x10^3(ANC) 12.82 10*3/uL 1.99-6.95 H (test code = [id number]) IMM GRAN x10^3 (test 0.07 10*3/uL 0-0.06 H code = 3521221931) LYMPH x10^3 (test code 0.55 10*3/uL 1.09-3.23 L = 731-0) MONO x10^3 (test code 0.42 10*3/uL 0.36-1.02 = 742-7) EOS x10^3 (test code = 0.09 10*3/uL 0.06-0.53 711-2) BASO x10^3 (test code 0.05 10*3/uL 0.01-0.09 = 704-7) Lab Interpretation Abnormal (test code = 09265-7) [facility] [id number] 12:07:00 Test Item Value Reference Range Interpretation Comments POC-GLUCOSE METER 200 mg/dL 70-110 H TESTED AT [facility] (test code = [place] 1538) [address] POCT-GLUCOSE [id number] 08:01:00 Test Item Value Reference Range Interpretation Comments POC-GLUCOSE METER 165 mg/dL 70-110 H TESTED AT [facility] [address] (BEAKER) (test code = [place] [facility] 1538) [address] BASIC METABOLIC [id number] 07:50:00 Test Item Value Reference Range Interpretation Comments SODIUM (BEAKER) 135 meq/L 136-145 L (test code = 381) POTASSIUM (BEAKER) 4.1 meq/L 3.5-5.1 (test code = 379) CHLORIDE (BEAKER) 106 meq/L 98-107 (test code = 382) CO2 (BEAKER) (test 22 meq/L 22-29 code = 355) BLOOD UREA NITROGEN 11 mg/dL 7-21 (BEAKER) (test code = 354) CREATININE (BEAKER) 0.69 mg/dL 0.57-1.25 (test code = 358) GLUCOSE RANDOM 167 mg/dL 70-105 H (BEAKER) (test code = 652) CALCIUM (BEAKER) 8.7 mg/dL 8.4-10.2 (test code = 697) EGFR (BEAKER) (test mL/min/1.73 INSUFFIC IENT CLINICAL code = 1092) sq m DATA TO CALCULA TE ESTIMATED GFR. CBC W/PLT COUNT & AUTO [id number] 07:49:00 Test Item Value Reference Range Interpretation Comments WHITE BLOOD CELL COUNT (BEAKER) 7.8 K/ L 4.0-10.0 (test code = 775) RED BLOOD CELL COUNT (BEAKER) 4.01 M/ L 4.20-5.80 L (test code = 761) HEMOGLOBIN (BEAKER) (test code = 11.5 GM/DL 13.0-16.8 L 410) HEMATOCRIT (BEAKER) (test code = 33.5 % 40.0-50.0 L 411) MEAN CORPUSCULAR VOLUME (BEAKER) 83.6 fL 82.0-98.0 (test code = 753) MEAN CORPUSCULAR HEMOGLOBIN 28.7 pg 27.0-33.0 (BEAKER) (test code = 751) MEAN CORPUSCULAR HEMOGLOBIN CONC 34.4 GM/DL 32.0-36.0 (BEAKER) (test code = 752) RED CELL DISTRIBUTION WIDTH 13.1 % 10.3-14.2 (BEAKER) (test code = 412) PLATELET COUNT (BEAKER) (test 290 K/CU MM 150-430 code = 756) MEAN PLATELET VOLUME (BEAKER) 5.9 fL 6.5-10.5 L (test code = 754) NUCLEATED RED BLOOD CELLS 0 /100 WBC 0-0 (BEAKER) (test code = 413) NEUTROPHILS RELATIVE PERCENT 63 % (BEAKER) (test code = 429) LYMPHOCYTES RELATIVE PERCENT 25 % (BEAKER) (test code = 430) MONOCYTES RELATIVE PERCENT 7 % (BEAKER) (test code = 431) EOSINOPHILS RELATIVE PERCENT 5 % (BEAKER) (test code = 432) BASOPHILS RELATIVE PERCENT 1 % (BEAKER) (test code = 437) NEUTROPHILS ABSOLUTE COUNT 4.92 K/ L 1.80-8.00 (BEAKER) (test code = 670) LYMPHOCYTES ABSOLUTE COUNT 1.91 K/ L 1.48-4.50 (BEAKER) (test code = 414) MONOCYTES ABSOLUTE COUNT (BEAKER) 0.53 K/ L 0.00-1.30 (test code = 415) EOSINOPHILS ABSOLUTE COUNT 0.37 K/ L 0.00-0.50 (BEAKER) (test code = 416) BASOPHILS ABSOLUTE COUNT (BEAKER) 0.05 K/ L 0.00-0.20 (test code = 417) 0.00PT/[id number] 07:46:00 Test Item Value Reference Range Interpretation Comments PROTIME (BEAKER) (test code = 13.5 seconds 11.7-14.7 759) INR (BEAKER) (test code = 370) 1.0 <=5.9 PARTIAL THROMBOPLASTIN TIME 38.0 seconds 22.5-36.0 H (BEAKER) (test code = 760) RECOMMENDED COUMADIN/WARFARIN INR THERAPY RANGESSTANDARD DOSE: 2.0 - 3.0 Includes: PROPHYLAXIS for venous thrombosis, systemic embolization; TREATMENT for venous thrombosis and/or pulmonary embolus.HIGH RISK: Target INR is 2.5-3.5 for patients with mechanical heart valves.PROTHROMBIN [id number] 07:45:00 Test Item Value Reference Range Interpretation Comments PROTIME (BEAKER) (test code = 13.5 seconds 11.7-14.7 759) INR (BEAKER) (test code = 370) 1.0 <=5.9 RECOMMENDED COUMADIN/WARFARIN INR THERAPY RANGESSTANDARD DOSE: 2.0 - 3.0 Includes: PROPHYLAXIS for venous thrombosis, systemic embolization; TREATMENT for venous thrombosis and/or pulmonary embolus.HIGH RISK: Target INR is 2.5-3.5 for patients with mechanical heart valves.[id number] 07:45:00 Test Item Value Reference Range Interpretation Comments PHOSPHORUS (BEAKER) (test code = 3.5 mg/dL 2.3-4.7 604) [id number] 07:45:00 Test Item Value Reference Range Interpretation Comments MAGNESIUM (BEAKER) (test code = 1.8 mg/dL 1.6-2.6 627) LACTATE DEHYDROGENASE (LDH)2016-04-11 07:45:00 Test Item Value Reference Range Interpretation Comments LACTATE DEHYDROGENASE (BEAKER) (test 376 U/L 125-220 H code = 635) LACTIC ACID, VENOUS, WHOLE [id number] 07:43:00 Test Item Value Reference Range Interpretation Comments LACTATE BLOOD VENOUS (2) (BEAKER) 0.7 mmol/L 0.5-2.2 (test code = 2872) Effective 06/25/2015: Units/Reference Range ChangeNew: 0.5-2.2 mmol/L Previous: 5- 20 mg/dLPOCT-GLUCOSE [id number] 21:44:00 Test Item Value Reference Range Interpretation Comments POC-GLUCOSE METER 239 mg/dL 70-110 H TESTED AT [place] [address] ([facility]) (test code = [place] 1538) [address] POCT-GLUCOSE [id number] 17:33:00 Test Item Value Reference Range Interpretation Comments POC-GLUCOSE METER 222 mg/dL 70-110 H TESTED AT [place] [address] ([facility]) (test code = [place] 1538) [address] POCT-GLUCOSE [id number] 12:53:00 Test Item Value Reference Range Interpretation Comments POC-GLUCOSE METER 147 mg/dL 70-110 H TESTED AT [place] [address] ([facility]) (test code = [place] 1538) [address] POCT-GLUCOSE [id number] 08:08:00 Test Item Value Reference Range Interpretation Comments POC-GLUCOSE METER 132 mg/dL 70-110 H TESTED AT [facility] [address] (BEAKER) (test code = [place] 1538) [address] LACTATE DEHYDROGENASE (LDH)2016 07:03:00 Test Item Value Reference Range Interpretation Comments LACTATE DEHYDROGENASE 553 U/L 125-220 H Specim en slightly (BEAKER) (test code = hemoly zed 635) BASIC METABOLIC [id number] 07:02:00 Test Item Value Reference Range Interpretation Comments SODIUM (BEAKER) 134 meq/L 136-145 L (test code = 381) POTASSIUM (BEAKER) 3.9 meq/L 3.5-5.1 Specimen slightly (test code = 379) hemolyzed CHLORIDE (BEAKER) 107 meq/L 98-107 (test code = 382) CO2 (BEAKER) (test 17 meq/L 22-29 L code = 355) BLOOD UREA NITROGEN 12 mg/dL 7-21 (BEAKER) (test code = 354) CREATININE (BEAKER) 0.72 mg/dL 0.57-1.25 Specimen slightly (test code = 358) hemolyzed GLUCOSE RANDOM 145 mg/dL 70-105 H (BEAKER) (test code = 652) CALCIUM (BEAKER) 8.7 mg/dL 8.4-10.2 (test code = 697) EGFR (BEAKER) (test mL/min/1.73 INSUFFIC IENT CLINICAL code = 1092) sq m DATA TO CALCULA TE ESTIMATED GFR. [id number] 07:01:00 Test Item Value Reference Range Interpretation Comments MAGNESIUM (BEAKER) 2.0 mg/dL 1.6-2.6 Specimen slightly (test code = 627) hemolyzed [id number] 07:01:00 Test Item Value Reference Range Interpretation Comments PHOSPHORUS (BEAKER) 2.8 mg/dL 2.3-4.7 Specimen slightly (test code = 604) hemolyzed CBC W/PLT COUNT & AUTO [id number] 06:28:00 Test Item Value Reference Range Interpretation Comments WHITE BLOOD CELL COUNT (BEAKER) 8.7 K/ L 4.0-10.0 (test code = 775) RED BLOOD CELL COUNT (BEAKER) 4.13 M/ L 4.20-5.80 L (test code = 761) HEMOGLOBIN (BEAKER) (test code = 11.9 GM/DL 13.0-16.8 L 410) HEMATOCRIT (BEAKER) (test code = 35.2 % 40.0-50.0 L 411) MEAN CORPUSCULAR VOLUME (BEAKER) 85.2 fL 82.0-98.0 (test code = 753) MEAN CORPUSCULAR HEMOGLOBIN 28.9 pg 27.0-33.0 (BEAKER) (test code = 751) MEAN CORPUSCULAR HEMOGLOBIN CONC 33.9 GM/DL 32.0-36.0 (BEAKER) (test code = 752) RED CELL DISTRIBUTION WIDTH 13.1 % 10.3-14.2 (BEAKER) (test code = 412) PLATELET COUNT (BEAKER) (test 263 K/CU MM 150-430 code = 756) MEAN PLATELET VOLUME (BEAKER) 6.3 fL 6.5-10.5 L (test code = 754) NUCLEATED RED BLOOD CELLS 0 /100 WBC 0-0 (BEAKER) (test code = 413) NEUTROPHILS RELATIVE PERCENT 74 % (BEAKER) (test code = 429) LYMPHOCYTES RELATIVE PERCENT 15 % (BEAKER) (test code = 430) MONOCYTES RELATIVE PERCENT 6 % (BEAKER) (test code = 431) EOSINOPHILS RELATIVE PERCENT 4 % (BEAKER) (test code = 432) BASOPHILS RELATIVE PERCENT 0 % (BEAKER) (test code = 437) NEUTROPHILS ABSOLUTE COUNT 6.47 K/ L 1.80-8.00 (BEAKER) (test code = 670) LYMPHOCYTES ABSOLUTE COUNT 1.35 K/ L 1.48-4.50 L (BEAKER) (test code = 414) MONOCYTES ABSOLUTE COUNT (BEAKER) 0.54 K/ L 0.00-1.30 (test code = 415) EOSINOPHILS ABSOLUTE COUNT 0.35 K/ L 0.00-0.50 (BEAKER) (test code = 416) BASOPHILS ABSOLUTE COUNT (BEAKER) 0.02 K/ L 0.00-0.20 (test code = 417) 0.00LACTIC ACID, VENOUS, WHOLE [id number] 05:52:00 Test Item Value Reference Range Interpretation Comments LACTATE BLOOD VENOUS (2) (BEAKER) 0.8 mmol/L 0.5-2.2 (test code = 2872) Effective 06/25/2015: Units/Reference Range ChangeNew: 0.5-2.2 mmol/L Previous: 5- 20 mg/dLPT/[id number] 05:51:00 Test Item Value Reference Range Interpretation Comments PROTIME (BEAKER) (test code = 13.4 seconds 11.7-14.7 759) INR (BEAKER) (test code = 370) 1.0 <=5.9 PARTIAL THROMBOPLASTIN TIME 31.0 seconds 22.5-36.0 (BEAKER) (test code = 760) RECOMMENDED COUMADIN/WARFARIN INR THERAPY RANGESSTANDARD DOSE: 2.0 - 3.0 Includes: PROPHYLAXIS for venous thrombosis, systemic embolization; TREATMENT for venous thrombosis and/or pulmonary embolus.HIGH RISK: Target INR is 2.5-3.5 for patients with mechanical heart valves.PROTHROMBIN [id number] 05:50:00 Test Item Value Reference Range Interpretation Comments PROTIME (BEAKER) (test code = 13.4 seconds 11.7-14.7 759) INR (BEAKER) (test code = 370) 1.0 <=5.9 RECOMMENDED COUMADIN/WARFARIN INR THERAPY RANGESSTANDARD DOSE: 2.0 - 3.0 Includes: PROPHYLAXIS for venous thrombosis, systemic embolization; TREATMENT for venous thrombosis and/or pulmonary embolus.HIGH RISK: Target INR is 2.5-3.5 for patients with mechanical heart valves.BLOOD GAS, [id number] 05:37:00 Test Item Value Reference Range Interpretation Comments PH ARTERIAL (BEAKER) (test code = 7.48 7.35-7.45 H 383) PCO2 ARTERIAL (BEAKER) (test code 33 mmHg 35-45 L = 384) PO2 ARTERIAL (BEAKER) (test code = 71 mmHg 80-90 L 385) O2 SATURATION ARTERIAL (BEAKER) 95.5 % 96.0-97.0 L (test code = 386) HCO3 ARTERIAL (BEAKER) (test code 24 mmol/L 21-29 = 388) BASE EXCESS ARTERIAL (BEAKER) 0.8 mmol/L -2.0-3.0 (test code = 387) PATIENT TEMPERATURE (BEAKER) (test 37.0 C code = 1818) FIO2 (BEAKER) (test code = 1819) 21.0 % POCT-GLUCOSE [id number] 21:23:00 Test Item Value Reference Range Interpretation Comments POC-GLUCOSE METER 180 mg/dL 70-110 H TESTED AT [place] [address] ([facility]) (test code = [place] [facility] 1538) [address] POCT-GLUCOSE [id number] 17:41:00 Test Item Value Reference Range Interpretation Comments POC-GLUCOSE METER 218 mg/dL 70-110 H TESTED AT [place] [address] ([facility]) (test code = [place] [facility] 1538) [address] POCT-GLUCOSE [id number] 12:17:00 Test Item Value Reference Range Interpretation Comments POC-GLUCOSE METER 191 mg/dL 70-110 H TESTED AT [place] [address] ([facility]) (test code = [place] [facility] 1538) [address] POCT-GLUCOSE [id number] 12:17:00 Test Item Value Reference Range Interpretation Comments POC-GLUCOSE METER 133 mg/dL 70-110 H TESTED AT [place] [address] ([facility]) (test code = [place] [facility] 1538) [address] BASIC METABOLIC [id number] 05:24:00 Test Item Value Reference Range Interpretation Comments SODIUM (BEAKER) 139 meq/L 136-145 (test code = 381) POTASSIUM (BEAKER) 3.6 meq/L 3.5-5.1 (test code = 379) CHLORIDE (BEAKER) 106 meq/L 98-107 (test code = 382) CO2 (BEAKER) (test 24 meq/L 22-29 code = 355) BLOOD UREA NITROGEN 13 mg/dL 7-21 (BEAKER) (test code = 354) CREATININE (BEAKER) 0.69 mg/dL 0.57-1.25 (test code = 358) GLUCOSE RANDOM 161 mg/dL 70-105 H (BEAKER) (test code = 652) CALCIUM (BEAKER) 8.3 mg/dL 8.4-10.2 L (test code = 697) EGFR (BEAKER) (test mL/min/1.73 INSUFFIC IENT CLINICAL code = 1092) sq m DATA TO CALCULA TE ESTIMATED GFR. [id number] 05:15:00 Test Item Value Reference Range Interpretation Comments PHOSPHORUS (BEAKER) (test code = 2.7 mg/dL 2.3-4.7 604) [id number] 05:15:00 Test Item Value Reference Range Interpretation Comments MAGNESIUM (BEAKER) (test code = 2.1 mg/dL 1.6-2.6 627) LACTATE DEHYDROGENASE (LDH)2016-04-09 05:15:00 Test Item Value Reference Range Interpretation Comments LACTATE DEHYDROGENASE (BEAKER) (test 562 U/L 125-220 H code = 635) LACTIC ACID, ARTERIAL, WHOLE [id number] 05:11:00 Test Item Value Reference Range Interpretation Comments LACTATE BLOOD ARTERIAL (2) 0.5 mmol/L 0.5-2.2 (BEAKER) (test code = 2874) Effective 06/25/2015: Units/Reference Range ChangeNew: 0.5-2.2 mmol/L Previous: 5- 20 mg/dLCBC W/PLT COUNT & AUTO [id number] 05:11:00 Test Item Value Reference Range Interpretation Comments WHITE BLOOD CELL COUNT (BEAKER) 8.2 K/ L 4.0-10.0 (test code = 775) RED BLOOD CELL COUNT (BEAKER) 3.89 M/ L 4.20-5.80 L (test code = 761) HEMOGLOBIN (BEAKER) (test code = 11.1 GM/DL 13.0-16.8 L 410) HEMATOCRIT (BEAKER) (test code = 33.5 % 40.0-50.0 L 411) MEAN CORPUSCULAR VOLUME (BEAKER) 85.9 fL 82.0-98.0 (test code = 753) MEAN CORPUSCULAR HEMOGLOBIN 28.6 pg 27.0-33.0 (BEAKER) (test code = 751) MEAN CORPUSCULAR HEMOGLOBIN CONC 33.3 GM/DL 32.0-36.0 (BEAKER) (test code = 752) RED CELL DISTRIBUTION WIDTH 12.1 % 10.3-14.2 (BEAKER) (test code = 412) PLATELET COUNT (BEAKER) (test 233 K/CU MM 150-430 code = 756) MEAN PLATELET VOLUME (BEAKER) 6.3 fL 6.5-10.5 L (test code = 754) NUCLEATED RED BLOOD CELLS 0 /100 WBC 0-0 (BEAKER) (test code = 413) NEUTROPHILS RELATIVE PERCENT 71 % (BEAKER) (test code = 429) LYMPHOCYTES RELATIVE PERCENT 16 % (BEAKER) (test code = 430) MONOCYTES RELATIVE PERCENT 8 % (BEAKER) (test code = 431) EOSINOPHILS RELATIVE PERCENT 5 % (BEAKER) (test code = 432) BASOPHILS RELATIVE PERCENT 0 % (BEAKER) (test code = 437) NEUTROPHILS ABSOLUTE COUNT 5.79 K/ L 1.80-8.00 (BEAKER) (test code = 670) LYMPHOCYTES ABSOLUTE COUNT 1.34 K/ L 1.48-4.50 L (BEAKER) (test code = 414) MONOCYTES ABSOLUTE COUNT (BEAKER) 0.64 K/ L 0.00-1.30 (test code = 415) EOSINOPHILS ABSOLUTE COUNT 0.39 K/ L 0.00-0.50 (BEAKER) (test code = 416) BASOPHILS ABSOLUTE COUNT (BEAKER) 0.04 K/ L 0.00-0.20 (test code = 417) [id number] 05:09:00 Test Item Value Reference Range Interpretation Comments PROTIME (BEAKER) (test code = 14.4 seconds 11.7-14.7 759) INR (BEAKER) (test code = 370) 1.1 <=5.9 PARTIAL THROMBOPLASTIN TIME 36.8 seconds 22.5-36.0 H (BEAKER) (test code = 760) RECOMMENDED COUMADIN/WARFARIN INR THERAPY RANGESSTANDARD DOSE: 2.0 - 3.0 Includes: PROPHYLAXIS for venous thrombosis, systemic embolization; TREATMENT for venous thrombosis and/or pulmonary embolus.HIGH RISK: Target INR is 2.5-3.5 for patients with mechanical heart valves.PROTHROMBIN [id number] 05:08:00 Test Item Value Reference Range Interpretation Comments PROTIME (BEAKER) (test code = 14.4 seconds 11.7-14.7 759) INR (BEAKER) (test code = 370) 1.1 <=5.9 RECOMMENDED COUMADIN/WARFARIN INR THERAPY RANGESSTANDARD DOSE: 2.0 - 3.0 Includes: PROPHYLAXIS for venous thrombosis, systemic embolization; TREATMENT for venous thrombosis and/or pulmonary embolus.HIGH RISK: Target INR is 2.5-3.5 for patients with mechanical heart valves.BLOOD GAS, [id number] 04:54:00 Test Item Value Reference Range Interpretation Comments PH ARTERIAL (BEAKER) (test code = 7.49 7.35-7.45 H 383) PCO2 ARTERIAL (BEAKER) (test code 36 mmHg 35-45 = 384) PO2 ARTERIAL (BEAKER) (test code = 108 mmHg 80-90 H 385) O2 SATURATION ARTERIAL (BEAKER) 98.3 % 96.0-97.0 H (test code = 386) HCO3 ARTERIAL (BEAKER) (test code 27 mmol/L 21-29 = 388) BASE EXCESS ARTERIAL (BEAKER) 3.8 mmol/L -2.0-3.0 H (test code = 387) PATIENT TEMPERATURE (BEAKER) (test 37.0 C code = 1818) POCT-GLUCOSE [id number] 21:35:00 Test Item Value Reference Range Interpretation Comments POC-GLUCOSE METER 116 mg/dL 70-110 H TESTED AT [facility] 6720 (BEAKER) (test code = [facility] 1538) [address] POCT-GLUCOSE [id number] 19:27:00 Test Item Value Reference Range Interpretation Comments POC-GLUCOSE METER 131 mg/dL 70-110 H [facility] [place] [address] [facility] (test code = [facility] 1538) [address] BASIC METABOLIC [id number] 18:53:00 Test Item Value Reference Range Interpretation Comments SODIUM (BEAKER) 135 meq/L 136-145 L (test code = 381) POTASSIUM (BEAKER) 3.8 meq/L 3.5-5.1 Specimen slightly (test code = 379) hemolyzed CHLORIDE (BEAKER) 104 meq/L 98-107 (test code = 382) CO2 (BEAKER) (test 23 meq/L 22-29 code = 355) BLOOD UREA NITROGEN 15 mg/dL 7-21 (BEAKER) (test code = 354) CREATININE (BEAKER) 0.68 mg/dL 0.57-1.25 Specimen slightly (test code = 358) hemolyzed GLUCOSE RANDOM 161 mg/dL 70-105 H (BEAKER) (test code = 652) CALCIUM (BEAKER) 8.3 mg/dL 8.4-10.2 L (test code = 697) EGFR (BEAKER) (test mL/min/1.73 INSUFFIC IENT CLINICAL code = 1092) sq m DATA TO CALCULA TE ESTIMATED GFR. POCT-GLUCOSE [id number] 17:13:00 Test Item Value Reference Range Interpretation Comments POC-GLUCOSE METER 226 mg/dL 70-110 H TESTED AT [facility] 67[address] ([facility]) (test code = [place] [facility] 1538) [address] POCT-GLUCOSE [id number] 16:29:00 Test Item Value Reference Range Interpretation Comments POC-GLUCOSE METER 198 mg/dL 70-110 H TESTED AT [facility] 67[address] ([facility]) (test code = [facility] Sergio [facility] 1538) [address] TROPONIN [id number] 04:46:00 Test Item Value Reference Range Interpretation Comments TROPONIN I ([facility]) (test code = 16.02 ng/mL 0.00-0.03 HH 397) Effective 01/08/2014: Reference Range ChangeNew: 0.00-0.03 Previous 0.00- 0.15Troponin I (TnI) levelsmust be interpreted in the context of the presenting symptoms and the clinical findings. Elevated TnI levels indicate myocardial damage, but are not specific for ischemic heart disease. Elevated TnI levels are seen in patients with other cardiac conditions (including myocarditis and congestive heart failure), and slight TnI elevations occur in patients with other conditions, including sepsis, renal failure, acidosis, acute neurological disease, and persistent tachyarrhythmia.BASIC METABOLIC [id number] 04:43:00 Test Item Value Reference Range Interpretation Comments SODIUM (BEAKER) 137 meq/L 136-145 (test code = 381) POTASSIUM (BEAKER) 4.0 meq/L 3.5-5.1 (test code = 379) CHLORIDE (BEAKER) 103 meq/L 98-107 (test code = 382) CO2 (BEAKER) (test 25 meq/L 22-29 code = 355) BLOOD UREA NITROGEN 18 mg/dL 7-21 (BEAKER) (test code = 354) CREATININE (BEAKER) 0.80 mg/dL 0.57-1.25 (test code = 358) GLUCOSE RANDOM 220 mg/dL 70-105 H (BEAKER) (test code = 652) CALCIUM (BEAKER) 8.3 mg/dL 8.4-10.2 L (test code = 697) EGFR (BEAKER) (test mL/min/1.73 INSUFFIC IENT CLINICAL code = 1092) sq m DATA TO CALCULA TE ESTIMATED GFR. [id number] 04:40:00 Test Item Value Reference Range Interpretation Comments PHOSPHORUS (BEAKER) (test code = 3.4 mg/dL 2.3-4.7 604) [id number] 04:40:00 Test Item Value Reference Range Interpretation Comments MAGNESIUM (BEAKER) (test code = 2.0 mg/dL 1.6-2.6 627) HEPATIC FUNCTION [id number] 04:40:00 Test Item Value Reference Range Interpretation Comments TOTAL PROTEIN (BEAKER) (test code = 6.4 gm/dL 6.0-8.3 770) ALBUMIN (BEAKER) (test code = 1145) 3.3 g/dL 3.5-5.0 L BILIRUBIN TOTAL (BEAKER) (test code 2.0 mg/dL 0.2-1.2 H = 377) BILIRUBIN DIRECT (BEAKER) (test 0.7 mg/dL 0.1-0.5 H code = 706) ALKALINE PHOSPHATASE (BEAKER) (test 67 U/L 40-150 code = 346) AST (SGOT) (BEAKER) (test code = 72 U/L 5-34 H 353) ALT (SGPT) (BEAKER) (test code = 28 U/L 6-55 347) LACTATE DEHYDROGENASE (LDH)2016-04-08 04:40:00 Test Item Value Reference Range Interpretation Comments LACTATE DEHYDROGENASE (BEAKER) (test 862 U/L 125-220 H code = 635) [id number] 04:39:00 Test Item Value Reference Range Interpretation Comments PROTIME (BEAKER) (test code = 14.4 seconds 11.7-14.7 759) INR (BEAKER) (test code = 370) 1.1 <=5.9 PARTIAL THROMBOPLASTIN TIME 53.9 seconds 22.5-36.0 H (BEAKER) (test code = 760) RECOMMENDED COUMADIN/WARFARIN INR THERAPY RANGESSTANDARD DOSE: 2.0 - 3.0 Includes: PROPHYLAXIS for venous thrombosis, systemic embolization; TREATMENT for venous thrombosis and/or pulmonary embolus.HIGH RISK: Target INR is 2.5-3.5 for patients with mechanical heart valves.PROTHROMBIN [id number] 04:38:00 Test Item Value Reference Range Interpretation Comments PROTIME (BEAKER) (test code = 14.4 seconds 11.7-14.7 759) INR (BEAKER) (test code = 370) 1.1 <=5.9 RECOMMENDED COUMADIN/WARFARIN INR THERAPY RANGESSTANDARD DOSE: 2.0 - 3.0 Includes: PROPHYLAXIS for venous thrombosis, systemic embolization; TREATMENT for venous thrombosis and/or pulmonary embolus.HIGH RISK: Target INR is 2.5-3.5 for patients with mechanical heart valves.LACTIC ACID, ARTERIAL, WHOLE BLOOD 2016-04-08 04:35:00 Test Item Value Reference Range Interpretation Comments LACTATE BLOOD ARTERIAL (2) 0.7 mmol/L 0.5-2.2 (BEAKER) (test code = 2874) Effective 06/25/2015: Units/Reference Range ChangeNew: 0.5-2.2 mmol/L Previous: 5- 20 mg/dLBLOOD GAS, [id number] 04:22:00 Test Item Value Reference Range Interpretation Comments PH ARTERIAL (BEAKER) (test code = 7.44 7.35-7.45 383) PCO2 ARTERIAL (BEAKER) (test code 42 mmHg 35-45 = 384) PO2 ARTERIAL (BEAKER) (test code = 98 mmHg 80-90 H 385) O2 SATURATION ARTERIAL (BEAKER) 97.7 % 96.0-97.0 H (test code = 386) HCO3 ARTERIAL (BEAKER) (test code 28 mmol/L 21-29 = 388) BASE EXCESS ARTERIAL (BEAKER) 3.6 mmol/L -2.0-3.0 H (test code = 387) PATIENT TEMPERATURE (BEAKER) (test 36.7 C code = 1818) FIO2 (BEAKER) (test code = 1819) 44.0 % CBC W/PLT COUNT & AUTO [id number] 04:22:00 Test Item Value Reference Range Interpretation Comments WHITE BLOOD CELL COUNT (BEAKER) 10.1 K/ L 4.0-10.0 H (test code = 775) RED BLOOD CELL COUNT (BEAKER) 4.35 M/ L 4.20-5.80 (test code = 761) HEMOGLOBIN (BEAKER) (test code = 12.8 GM/DL 13.0-16.8 L 410) HEMATOCRIT (BEAKER) (test code = 37.1 % 40.0-50.0 L 411) MEAN CORPUSCULAR VOLUME (BEAKER) 85.3 fL 82.0-98.0 (test code = 753) MEAN CORPUSCULAR HEMOGLOBIN 29.4 pg 27.0-33.0 (BEAKER) (test code = 751) MEAN CORPUSCULAR HEMOGLOBIN CONC 34.5 GM/DL 32.0-36.0 (BEAKER) (test code = 752) RED CELL DISTRIBUTION WIDTH 12.2 % 10.3-14.2 (BEAKER) (test code = 412) PLATELET COUNT (BEAKER) (test 220 K/CU MM 150-430 code = 756) MEAN PLATELET VOLUME (BEAKER) 6.5 fL 6.5-10.5 (test code = 754) NUCLEATED RED BLOOD CELLS 0 /100 WBC 0-0 (BEAKER) (test code = 413) NEUTROPHILS RELATIVE PERCENT 76 % (BEAKER) (test code = 429) LYMPHOCYTES RELATIVE PERCENT 13 % (BEAKER) (test code = 430) MONOCYTES RELATIVE PERCENT 10 % (BEAKER) (test code = 431) EOSINOPHILS RELATIVE PERCENT 1 % (BEAKER) (test code = 432) BASOPHILS RELATIVE PERCENT 0 % (BEAKER) (test code = 437) NEUTROPHILS ABSOLUTE COUNT 7.65 K/ L 1.80-8.00 (BEAKER) (test code = 670) LYMPHOCYTES ABSOLUTE COUNT 1.30 K/ L 1.48-4.50 L (BEAKER) (test code = 414) MONOCYTES ABSOLUTE COUNT (BEAKER) 0.97 K/ L 0.00-1.30 (test code = 415) EOSINOPHILS ABSOLUTE COUNT 0.15 K/ L 0.00-0.50 (BEAKER) (test code = 416) BASOPHILS ABSOLUTE COUNT (BEAKER) 0.01 K/ L 0.00-0.20 (test code = 417) 0.00BASI METABOLIC [id number] 00:08:00 Test Item Value Reference Range Interpretation Comments SODIUM (BEAKER) 138 meq/L 136-145 (test code = 381) POTASSIUM (BEAKER) 3.3 meq/L 3.5-5.1 L Specimen slightly (test code = 379) hemolyzed CHLORIDE (BEAKER) 102 meq/L 98-107 (test code = 382) CO2 (BEAKER) (test 24 meq/L 22-29 code = 355) BLOOD UREA NITROGEN 17 mg/dL 7-21 (BEAKER) (test code = 354) CREATININE (BEAKER) 0.93 mg/dL 0.57-1.25 Specimen slightly (test code = 358) hemolyzed GLUCOSE RANDOM 210 mg/dL 70-105 H (BEAKER) (test code = 652) CALCIUM (BEAKER) 8.3 mg/dL 8.4-10.2 L (test code = 697) EGFR (BEAKER) (test mL/min/1.73 INSUFFIC IENT CLINICAL code = 1092) sq m DATA TO CALCULA TE ESTIMATED GFR. [id number] 22:33:00 Test Item Value Reference Range Interpretation Comments PARTIAL THROMBOPLASTIN TIME 53.2 seconds 22.5-36.0 H (BEAKER) (test code = 760) [id number] 20:54:00 Test Item Value Reference Range Interpretation Comments PROTIME (BEAKER) (test code = 14.4 seconds 11.7-14.7 759) INR (BEAKER) (test code = 370) 1.1 <=5.9 PARTIAL THROMBOPLASTIN TIME 106.2 seconds 22.5-36.0 H (BEAKER) (test code = 760) RECOMMENDED COUMADIN/WARFARIN INR THERAPY RANGESSTANDARD DOSE: 2.0 - 3.0 Includes: PROPHYLAXIS for venous thrombosis, systemic embolization; TREATMENT for venous thrombosis and/or pulmonary embolus.HIGH RISK: Target INR is 2.5-3.5 for patients with mechanical heart valves.BLOOD GAS, [id number] 20:20:00 Test Item Value Reference Range Interpretation Comments PH ARTERIAL (BEAKER) (test code = 7.48 7.35-7.45 H 383) PCO2 ARTERIAL (BEAKER) (test code 36 mmHg 35-45 = 384) PO2 ARTERIAL (BEAKER) (test code = 156 mmHg 80-90 H 385) O2 SATURATION ARTERIAL (BEAKER) 99.1 % 96.0-97.0 H (test code = 386) HCO3 ARTERIAL (BEAKER) (test code 26 mmol/L 21-29 = 388) BASE EXCESS ARTERIAL (BEAKER) 2.3 mmol/L -2.0-3.0 (test code = 387) PATIENT TEMPERATURE (BEAKER) (test 37.0 C code = 1818) FIO2 (BEAKER) (test code = 1819) 60.0 % [id number] 19:14:00 Test Item Value Reference Range Interpretation Comments PROTIME (BEAKER) (test code = 14.6 seconds 11.7-14.7 759) INR (BEAKER) (test code = 370) 1.2 <=5.9 PARTIAL THROMBOPLASTIN TIME > seconds 22.5-36.0 HH (BEAKER) (test code = 760) RECOMMENDED COUMADIN/WARFARIN INR THERAPY RANGESSTANDARD DOSE: 2.0 - 3.0 Includes: PROPHYLAXIS for venous thrombosis, systemic embolization; TREATMENT for venous thrombosis and/or pulmonary embolus.HIGH RISK: Target INR is 2.5-3.5 for patients with mechanical heart valves.LACTATE DEHYDROGENASE (LDH)2016-04-07 19:14:00 Test Item Value Reference Range Interpretation Comments LACTATE DEHYDROGENASE 590 U/L 125-220 H Specim en slightly (BEAKER) (test code = hemoly zed 635) BASIC METABOLIC [id number] 19:14:00 Test Item Value Reference Range Interpretation Comments SODIUM (BEAKER) 136 meq/L 136-145 (test code = 381) POTASSIUM (BEAKER) 3.5 meq/L 3.5-5.1 Specimen slightly (test code = 379) hemolyzed CHLORIDE (BEAKER) 101 meq/L 98-107 (test code = 382) CO2 (BEAKER) (test 24 meq/L 22-29 code = 355) BLOOD UREA NITROGEN 15 mg/dL 7-21 (BEAKER) (test code = 354) CREATININE (BEAKER) 0.87 mg/dL 0.57-1.25 Specimen slightly (test code = 358) hemolyzed GLUCOSE RANDOM 234 mg/dL 70-105 H (BEAKER) (test code = 652) CALCIUM (BEAKER) 8.5 mg/dL 8.4-10.2 (test code = 697) EGFR (BEAKER) (test mL/min/1.73 INSUFFIC IENT CLINICAL code = 1092) sq m DATA TO CALCULA TE ESTIMATED GFR. [id number] 19:08:00 Test Item Value Reference Range Interpretation Comments MAGNESIUM (BEAKER) 2.2 mg/dL 1.6-2.6 Specimen slightly (test code = 627) hemolyzed [id number] 19:08:00 Test Item Value Reference Range Interpretation Comments PHOSPHORUS (BEAKER) 3.5 mg/dL 2.3-4.7 Specimen slightly (test code = 604) hemolyzed [id number] 19:04:00 Test Item Value Reference Range Interpretation Comments FIBRINOGEN LEVEL (BEAKER) (test 711 mg/dl 225-434 H code = 658) PROTHROMBIN [id number] 19:03:00 Test Item Value Reference Range Interpretation Comments PROTIME (BEAKER) (test code = 14.6 seconds 11.7-14.7 759) INR (BEAKER) (test code = 370) 1.2 <=5.9 RECOMMENDED COUMADIN/WARFARIN INR THERAPY RANGESSTANDARD DOSE: 2.0 - 3.0 Includes: PROPHYLAXIS for venous thrombosis, systemic embolization; TREATMENT for venous thrombosis and/or pulmonary embolus.HIGH RISK: Target INR is 2.5-3.5 for patients with mechanical heart valves.CBC W/PLT COUNT & AUTO [id number] 18:54:00 Test Item Value Reference Range Interpretation Comments WHITE BLOOD CELL COUNT (BEAKER) 11.8 K/ L 4.0-10.0 H (test code = 775) RED BLOOD CELL COUNT (BEAKER) 4.92 M/ L 4.20-5.80 (test code = 761) HEMOGLOBIN (BEAKER) (test code = 14.3 GM/DL 13.0-16.8 410) HEMATOCRIT (BEAKER) (test code = 41.8 % 40.0-50.0 411) MEAN CORPUSCULAR VOLUME (BEAKER) 84.9 fL 82.0-98.0 (test code = 753) MEAN CORPUSCULAR HEMOGLOBIN 29.1 pg 27.0-33.0 (BEAKER) (test code = 751) MEAN CORPUSCULAR HEMOGLOBIN CONC 34.3 GM/DL 32.0-36.0 (BEAKER) (test code = 752) RED CELL DISTRIBUTION WIDTH 12.2 % 10.3-14.2 (BEAKER) (test code = 412) PLATELET COUNT (BEAKER) (test 244 K/CU MM 150-430 code = 756) MEAN PLATELET VOLUME (BEAKER) 6.6 fL 6.5-10.5 (test code = 754) NUCLEATED RED BLOOD CELLS 0 /100 WBC 0-0 (BEAKER) (test code = 413) NEUTROPHILS RELATIVE PERCENT 81 % (BEAKER) (test code = 429) LYMPHOCYTES RELATIVE PERCENT 11 % (BEAKER) (test code = 430) MONOCYTES RELATIVE PERCENT 6 % (BEAKER) (test code = 431) EOSINOPHILS RELATIVE PERCENT 2 % (BEAKER) (test code = 432) BASOPHILS RELATIVE PERCENT 0 % (BEAKER) (test code = 437) NEUTROPHILS ABSOLUTE COUNT 9.52 K/ L 1.80-8.00 H (BEAKER) (test code = 670) LYMPHOCYTES ABSOLUTE COUNT 1.32 K/ L 1.48-4.50 L (BEAKER) (test code = 414) MONOCYTES ABSOLUTE COUNT (BEAKER) 0.77 K/ L 0.00-1.30 (test code = 415) EOSINOPHILS ABSOLUTE COUNT 0.18 K/ L 0.00-0.50 (BEAKER) (test code = 416) BASOPHILS ABSOLUTE COUNT (BEAKER) 0.04 K/ L 0.00-0.20 (test code = 417) 0.00BLOOD GAS, [id number] 18:46:00 Test Item Value Reference Range Interpretation Comments PH ARTERIAL (BEAKER) (test code = 7.46 7.35-7.45 H 383) PCO2 ARTERIAL (BEAKER) (test code 38 mmHg 35-45 = 384) PO2 ARTERIAL (BEAKER) (test code = 77 mmHg 80-90 L 385) O2 SATURATION ARTERIAL (BEAKER) 96.1 % 96.0-97.0 (test code = 386) HCO3 ARTERIAL (BEAKER) (test code 26 mmol/L 21-29 = 388) BASE EXCESS ARTERIAL (BEAKER) 2.5 mmol/L -2.0-3.0 (test code = 387) PATIENT TEMPERATURE (BEAKER) (test 37.0 C code = 1818) FIO2 (BEAKER) (test code = 1819) 100.0 % [id number] 16:37:00 Test Item Value Reference Range Interpretation Comments ACTIVATED CLOTTING TIME 266 sec TEST ED AT [facility] 6720 (BEAKER) (test code = [place] 441) [id number] INFLUENZA A H1N1 [id number] 16:10:00 Test Item Value Reference Range Interpretation Comments INFLUENZA A RNA Not Detected Not Detected, ([facility]) (test code = Inconclusive 1545) NOVEL H1N1 RNA ([facility]) Not Detected Not Detected, (test code = 1546) Inconclusive These assays were performed by real-time RT-PCR (blocker and polisher-PCR) utilizing fluorogenic hydrolysis probe technology for the detection of human Influenza A viruses and the differential detection of novel H1N1 Influenza virus in respiratory specimens. The test is composed of (1) an RNA extraction from patient specimen, and (2) blocker and polisher-PCR amplification and detection with human Influenza A and novel [id number]-[id number] primers and probes. A well-conserved region of the Influenza A matrix gene is targeted in one set of reactions to identify both seasonal Influenza A and novel H1N1 Influenza virus in the specimen. In addition, a specific region of the hemagglutinin gene is targeted to differentiate the novel H1N1 virus from the seasonal human influenza. An internal control is used to confirm PCR amplification. Genetic variation and other factors can affect the accuracy of nucleic acid testing; therefore, the results should be interpreted in light of clinical data. This test was developed and its performance characteristics determined by the [facility], Section of Molecular Pathology. It has not been cleared or approved by the U.S. Food and Drug Administration (FDA). Since FDAapproval is not required for clinical use of the test, validation was done as required by The Clinical Laboratory Amendments of 1988.[id number] 16:07:00 Test Item Value Reference Range Interpretation Comments ACTIVATED CLOTTING TIME 291 sec TEST ED AT [place] [address] ([facility]) (test code = MELIASD Sergio [place] [address]) [id number] 15:31:00 Test Item Value Reference Range Interpretation Comments ACTIVATED CLOTTING TIME 276 sec TEST ED AT [place] [address] ([facility]) (test code = [place] [address]) [id number] 15:03:00 Test Item Value Reference Range Interpretation Comments ACTIVATED CLOTTING TIME 286 sec TEST ED AT [place] [address] ([facility]) (test code = [place] [address]) [id number] POCT-GLUCOSE [id number] 14:32:00 Test Item Value Reference Range Interpretation Comments POC-GLUCOSE METER 233 mg/dL 70-110 H TESTED AT [facility] 6720 (BEAKER) (test code = [place] 1538) [id number] HEMOGLOBIN [id number] 09:57:00 Test Item Value Reference Range Interpretation Comments HEMOGLOBIN A1C (BEAKER) (test code = 10.5 % 4.3-6.1 H 368) HEMOGLOBIN [id number] 08:28:00 Test Item Value Reference Range Interpretation Comments HEMOGLOBIN A1C (BEAKER) (test code = 10.5 % 4.3-6.1 H 368) BASIC METABOLIC [id number] 07:48:00 Test Item Value Reference Range Interpretation Comments SODIUM (BEAKER) 135 meq/L 136-145 L (test code = 381) POTASSIUM (BEAKER) 3.6 meq/L 3.5-5.1 (test code = 379) CHLORIDE (BEAKER) 102 meq/L 98-107 (test code = 382) CO2 (BEAKER) (test 21 meq/L 22-29 L code = 355) BLOOD UREA NITROGEN 14 mg/dL 7-21 (BEAKER) (test code = 354) CREATININE (BEAKER) 0.85 mg/dL 0.57-1.25 (test code = 358) GLUCOSE RANDOM 258 mg/dL 70-105 H (BEAKER) (test code = 652) CALCIUM (BEAKER) 8.2 mg/dL 8.4-10.2 L (test code = 697) EGFR (BEAKER) (test mL/min/1.73 INSUFFIC IENT CLINICAL code = 1092) sq m DATA TO CALCULA TE ESTIMATED GFR. [id number] 07:34:00 Test Item Value Reference Range Interpretation Comments MAGNESIUM (BEAKER) (test code = 1.8 mg/dL 1.6-2.6 627) CBC (HEMOGRAM ONLY)2016-04-07 07:19:00 Test Item Value Reference Range Interpretation Comments WHITE BLOOD CELL COUNT (BEAKER) 9.1 K/ L 4.0-10.0 (test code = 775) RED BLOOD CELL COUNT (BEAKER) 4.87 M/ L 4.20-5.80 (test code = 761) HEMOGLOBIN (BEAKER) (test code = 13.9 GM/DL 13.0-16.8 410) HEMATOCRIT (BEAKER) (test code = 42.0 % 40.0-50.0 411) MEAN CORPUSCULAR VOLUME (BEAKER) 86.3 fL 82.0-98.0 (test code = 753) MEAN CORPUSCULAR HEMOGLOBIN 28.6 pg 27.0-33.0 (BEAKER) (test code = 751) MEAN CORPUSCULAR HEMOGLOBIN CONC 33.2 GM/DL 32.0-36.0 (BEAKER) (test code = 752) RED CELL DISTRIBUTION WIDTH 12.3 % 10.3-14.2 (BEAKER) (test code = 412) PLATELET COUNT (BEAKER) (test 243 K/CU MM 150-430 code = 756) MEAN PLATELET VOLUME (BEAKER) 6.8 fL 6.5-10.5 (test code = 754) NUCLEATED RED BLOOD CELLS 0 /100 WBC 0-0 (BEAKER) (test code = 413) 0.00TROPONIN [id number] 07:16:00 Test Item Value Reference Range Interpretation Comments TROPONIN I (BEAKER) (test code = 12.73 ng/mL 0.00-0.03 HH 397) Effective 01/08/2014: Reference Range ChangeNew: 0.00-0.03 Previous 0.00- 0.15Troponin I (TnI) levelsmust be interpreted in the context of the presenting symptoms and the clinical findings. Elevated TnI levels indicate myocardial damage, but are not specific for ischemic heart disease. Elevated TnI levels are seen in patients with other cardiac conditions (including myocarditis and congestive heart failure), and slight TnI elevations occur in patients with other conditions, including sepsis, renal failure, acidosis, acute neurological disease, and persistent tachyarrhythmia.CREATINE KINASE (CK), TOTAL AND MB 2016-04-07 06:58:00 Test Item Value Reference Range Interpretation Comments CREATINE KINASE TOTAL (BEAKER) 397 U/L 29-200 H (test code = 380) CREATINE KINASE-MB (BEAKER) (test 13.5 ng/mL 0.0-6.6 H code = 750) CREATINE KINASE-MB INDEX (BEAKER) 3.4 % (test code = 395) Effective 01/08/2014: CK-MB Reference Range ChangeNew: 0.0-6.6 Previous: 0.0-4.9CK-MB Reference Range:<6.7 Normal6.7-10.0 Borderline>10.0 Abnormal RAPID INFLUENZA A&B [id number] 06:01:00 Test Item Value Reference Range Interpretation Comments RAPID INFLUENZA A AG (BEAKER) Negative Negative, Inconclusive (test code = 1622) RAPID INFLUENZA B AG (BEAKER) Negative Negative, Inconclusive (test code = 1623) [id number] 05:05:00 Test Item Value Reference Range Interpretation Comments PARTIAL THROMBOPLASTIN TIME 38.8 seconds 22.5-36.0 H (BEAKER) (test code = 760) Prior to initiating heparinBLOOD GAS, [id number] 00:10:00 Test Item Value Reference Range Interpretation Comments PH ARTERIAL (BEAKER) (test code = 7.46 7.35-7.45 H 383) PCO2 ARTERIAL (BEAKER) (test code 32 mmHg 35-45 L = 384) PO2 ARTERIAL (BEAKER) (test code 95 mmHg 80-90 H = 385) O2 SATURATION ARTERIAL (BEAKER) 97.8 % 96.0-97.0 H (test code = 386) HCO3 ARTERIAL (BEAKER) (test code 22 mmol/L 21-29 = 388) BASE EXCESS ARTERIAL (BEAKER) -1.1 mmol/L -2.0-3.0 (test code = 387) PATIENT TEMPERATURE (BEAKER) 36.5 C (test code = 1818) FIO2 (BEAKER) (test code = 1819) 60.0 % TROPONIN [id number] 00:10:00 Test Item Value Reference Range Interpretation Comments TROPONIN I (BEAKER) (test code = 13.37 ng/mL 0.00-0.03 HH 397) Effective 01/08/2014: Reference Range ChangeNew: 0.00-0.03 Previous 0.00- 0.15Troponin I (TnI) levelsmust be interpreted in the context of the presenting symptoms and the clinical findings. Elevated TnI levels indicate myocardial damage, but are not specific for ischemic heart disease. Elevated TnI levels are seen in patients with other cardiac conditions (including myocarditis and congestive heart failure), and slight TnI elevations occur in patients with other conditions, including sepsis, renal failure, acidosis, acute neurological disease, and persistent tachyarrhythmia.CREATINE KINASE (CK), TOTAL AND MB 2016-04-07 00:08:00 Test Item Value Reference Range Interpretation Comments CREATINE KINASE TOTAL (BEAKER) 415 U/L 29-200 H (test code = 380) CREATINE KINASE-MB (BEAKER) (test 13.5 ng/mL 0.0-6.6 H code = 750) CREATINE KINASE-MB INDEX (BEAKER) 3.3 % (test code = 395) Effective 01/08/2014: CK-MB Reference Range ChangeNew: 0.0-6.6 Previous: 0.0-4.9CK-MB Reference Range:<6.7 Normal6.7-10.0 Borderline>10.0 Abnormal B-TYPE NATRIURETIC FACTOR (BNP)2016-04-07 00:08:00 Test Item Value Reference Range Interpretation Comments B-TYPE NATRIURETIC PEPTIDE (BEAKER) 583 pg/mL 0-100 H (test code = 700) COMPREHENSIVE METABOLIC [id number] 00:02:00 Test Item Value Reference Range Interpretation Comments TOTAL PROTEIN 6.9 gm/dL 6.0-8.3 (BEAKER) (test code = 770) ALBUMIN (BEAKER) 3.7 g/dL 3.5-5.0 (test code = 1145) ALKALINE PHOSPHATASE 77 U/L 40-150 (BEAKER) (test code = 346) BILIRUBIN TOTAL 1.1 mg/dL 0.2-1.2 (BEAKER) (test code = 377) SODIUM (BEAKER) 136 meq/L 136-145 (test code = 381) POTASSIUM (BEAKER) 4.1 meq/L 3.5-5.1 (test code = 379) CHLORIDE (BEAKER) 104 meq/L 98-107 (test code = 382) CO2 (BEAKER) (test 20 meq/L 22-29 L code = 355) BLOOD UREA NITROGEN 14 mg/dL 7-21 (BEAKER) (test code = 354) CREATININE (BEAKER) 0.87 mg/dL 0.57-1.25 (test code = 358) GLUCOSE RANDOM 223 mg/dL 70-105 H (BEAKER) (test code = 652) CALCIUM (BEAKER) 8.5 mg/dL 8.4-10.2 (test code = 697) AST (SGOT) (BEAKER) 40 U/L 5-34 H (test code = 353) ALT (SGPT) (BEAKER) 30 U/L 6-55 (test code = 347) EGFR (BEAKER) (test mL/min/1.73 INSUFFIC IENT code = 1092) sq m CLINICAL DATA T O CALCULATE ESTIM ATED GFR. LIPID [id number] 00:01:00 Test Item Value Reference Range Interpretation Comments TRIGLYCERIDES (BEAKER) (test code = 121 mg/dL 540) CHOLESTEROL (BEAKER) (test code = 160 mg/dL 631) HDL CHOLESTEROL (BEAKER) (test code 28 mg/dL = 976) LDL CHOLESTEROL CALCULATED (BEAKER) 108 mg/dL (test code = 633) Triglyceride Reference Range: Low Risk <150 Borderline 150-199 High Risk 200- 499 Very High Risk >=500Cholesterol Reference Range: Low Risk <200 Borderline 200-239 High Risk >240HDL Cholesterol Reference Range: Low Risk >=60 High Risk <40LDL Cholesterol Reference Range: Optimal <100 Near Optimal 100-129 Borderline 130-159 High 160-189 Very High >=190CBC W/PLT COUNT & AUTO [id number] 23:55:00 Test Item Value Reference Range Interpretation Comments WHITE BLOOD CELL COUNT (BEAKER) 11.2 K/ L 4.0-10.0 H (test code = 775) RED BLOOD CELL COUNT (BEAKER) 4.94 M/ L 4.20-5.80 (test code = 761) HEMOGLOBIN (BEAKER) (test code = 14.9 GM/DL 13.0-16.8 410) HEMATOCRIT (BEAKER) (test code = 42.4 % 40.0-50.0 411) MEAN CORPUSCULAR VOLUME (BEAKER) 85.9 fL 82.0-98.0 (test code = 753) MEAN CORPUSCULAR HEMOGLOBIN 30.2 pg 27.0-33.0 (BEAKER) (test code = 751) MEAN CORPUSCULAR HEMOGLOBIN CONC 35.2 GM/DL 32.0-36.0 (BEAKER) (test code = 752) RED CELL DISTRIBUTION WIDTH 12.3 % 10.3-14.2 (BEAKER) (test code = 412) PLATELET COUNT (BEAKER) (test 250 K/CU MM 150-430 code = 756) MEAN PLATELET VOLUME (BEAKER) 7.1 fL 6.5-10.5 (test code = 754) NUCLEATED RED BLOOD CELLS 0 /100 WBC 0-0 (BEAKER) (test code = 413) NEUTROPHILS RELATIVE PERCENT 74 % (BEAKER) (test code = 429) LYMPHOCYTES RELATIVE PERCENT 18 % (BEAKER) (test code = 430) MONOCYTES RELATIVE PERCENT 6 % (BEAKER) (test code = 431) EOSINOPHILS RELATIVE PERCENT 1 % (BEAKER) (test code = 432) BASOPHILS RELATIVE PERCENT 0 % (BEAKER) (test code = 437) NEUTROPHILS ABSOLUTE COUNT 8.31 K/ L 1.80-8.00 H (BEAKER) (test code = 670) LYMPHOCYTES ABSOLUTE COUNT 2.06 K/ L 1.48-4.50 (BEAKER) (test code = 414) MONOCYTES ABSOLUTE COUNT (BEAKER) 0.70 K/ L 0.00-1.30 (test code = 415) EOSINOPHILS ABSOLUTE COUNT 0.08 K/ L 0.00-0.50 (BEAKER) (test code = 416) BASOPHILS ABSOLUTE COUNT (BEAKER) 0.04 K/ L 0.00-0.20 (test code = 417) 0.00"
[2021-12-09] MEDS ORDERED: LIDOCAINE 1% MPF 30 ML VIAL ONE (13:55)
--- NOTE | 2021-12-09 16:21 | ER ---
Nurse's Notes [facility] Name: Navjot Vargas Jr Age: 46 yrs Sex: Male : 1975 Arrival Date: 12/09/2021 Time: 12:26 Bed Treatment Private MD: Diagnosis: Encounter for change or removal of drains-biliary Presentation: 12/09 12:36 Chief complaint: Patient states: Drain tube to right rib cage - Pt had abscess lanced ld1 last Tuesday with drain tube. Pt wanting drainage tube out. Coronavirus screen: At this time, the client does not indicate any symptoms associated with coronavirus-19. Ebola Screen: No symptoms or risks identified at this time. Initial Sepsis Screen: Does the patient meet any 2 criteria? No. Patient's initial sepsis screen is negative. Does the patient have a suspected source of infection? No. Patient's initial sepsis screen is negative. Risk Assessment: Do you want to hurt yourself or someone else? Patient reports no desire to harm self or others. Onset of symptoms was December 09, 2021. 12:36 Method Of Arrival: Ambulatory ld1 12:36 Acuity: HALEIGH 4 ld1 Triage Assessment: 12:38 General: Appears in no apparent distress. comfortable, Behavior is calm, cooperative, ld1 appropriate for age. Pain: Denies pain. EENT: No signs and/or symptoms were reported regarding the EENT system. Neuro: Level of Consciousness is awake, alert, obeys commands, Oriented to person, place, time, situation. Cardiovascular: Capillary refill < 3 seconds Patient's skin is warm and dry. Respiratory: Airway is patent Respiratory effort is even, unlabored. GI: Abdomen is flat, non-distended. Historical: - Allergies: 12:38 No Known Allergies; ld1 - PMHx: 12:38 Diabetes - IDDM; Hypertensive disorder; Myocardial infarction; ld1 - PSHx: 12:38 cardiac stent; Cholecystectomy; Coronary artery bypass graft; ld1 - Immunization history:: Adult Immunizations up to date, Client reports receiving the 2nd dose of the Covid vaccine. - Social history:: Smoking status: Patient denies any tobacco usage or history of. Patient/guardian denies using alcohol. - Family history:: not pertinent. Screenin:00 Abuse screen: Denies threats or abuse. Nutritional screening: No deficits noted. em6 Tuberculosis screening: No symptoms or risk factors identified. Fall Risk Total Kwon Fall Scale indicates No Risk (0-24 pts). Assessment: 12:50 Reassessment: see triage assessment. cathether noted no drainage noted. em6 13:50 Reassessment: No changes from previously documented assessment. Patient and/or family em6 updated on plan of care and expected duration. Pain level reassessed. Patient is alert, oriented x 3, equal unlabored respirations, skin warm/dry/pink. 14:50 Reassessment: No changes from previously documented assessment. Patient and/or family em6 updated on plan of care and expected duration. Pain level reassessed. Patient is alert, oriented x 3, equal unlabored respirations, skin warm/dry/pink. 15:50 Reassessment: No changes from previously documented assessment. Patient and/or family em6 updated on plan of care and expected duration. Pain level reassessed. Patient is alert, oriented x 3, equal unlabored respirations, skin warm/dry/pink. Vital Signs: 12:36 BP 119 / 69; Pulse 78; Resp 18; Temp 98.6; Pulse Ox 95% on R/A; Weight 83.91 kg; Height ld1 5 ft. 4 in. (162.56 cm); Pain 0/10; 14:28 BP 117 / 65; Pulse 70; Resp 16; Pulse Ox 100% on R/A; em6 16:30 BP 122 / 72; Pulse 74; Resp 18; Pulse Ox 98% on R/A; em6 12:36 Body Mass Index 31.75 (83.91 kg, 162.56 cm) ld1 ED Course: 12:26 Patient arrived in ED. as 12:38 Triage completed. ld1 12:38 Arm band placed on right wrist. ld1 12:51 Austin Caba MD is Attending Physician. leonila 13:00 Bed in low position. Call light in reach. Side rails up X 1. Pulse ox on. NIBP on. Warm em6 blanket given. 13:48 Nga Schuster, BALTA is Primary Nurse. em6 16:21 Mitesh Hamm MD is Referral Physician. leonila 16:34 No provider procedures requiring assistance completed. Patient did not have IV access em6 during this emergency room visit. Administered Medications: 16:34 Not Given (Physician Discretion): Lidocaine (1 %) 10 ml 20 ml Infiltration once; to em6 bedside Medication: 16:35 VIS not applicable for this client. em6 Outcome: 16:21 Discharge ordered by MD. keen 16:35 Discharged to home ambulatory, with family. em6 16:35 Condition: stable 16:35 Discharge instructions given to patient, family, Instructed on discharge instructions, follow up and referral plans. wound care, Demonstrated understanding of instructions, follow-up care, wound care. 16:35 Patient left the ED. em6 Signatures: Austin Caba MD MD cha Martinez, Amelia as Dibbern, Lauren RN RN ld1 Nga Schuster RN RN em6 Corrections: (The following items were deleted from the chart) 12:39 12:36 Pulse 78bpm; Resp 18bpm; Pulse Ox 95% RA; Temp 98.6F; 83.91 kg; Height 5 ft. 4 ld1 in.; BMI: 31.7; Pain 0/10; ld1 14:30 12:50 Reassessment: see triage assessment em6 em6 16:34 16:00 Lidocaine (1 %) 10 ml 20 ml Infiltration 20 ml em6 em6 16:34 16:31 Response: No adverse reaction em6 em6
--- NOTE | 2021-12-09 16:22 | EDPHYS ---
Physician Documentation [facility] Name: Navjot Vargas Jr Age: 46 yrs Sex: Male : 1975 Arrival Date: 12/09/2021 Time: 12:26 Bed Treatment Private MD: SUJATA Physician Austin Caba HPI: 12/09 16:00 This 46 yrs old Male presents to ER via Ambulatory with complaints of Problem leonila With Urinary Catheter - wants removal. 16:00 The patient presents with abdominal pain in the epigastric area. Onset: The leonila symptoms/episode began/occurred 7 day(s) ago. The symptoms do not radiate. Associated signs and symptoms: none. The symptoms are described as constant. Modifying factors: The symptoms are alleviated by nothing, the symptoms are aggravated by nothing. Severity of pain: At its worst the pain was mild in the emergency department the pain is unchanged. The patient has not experienced similar symptoms in the past. Historical: - Allergies: 12:38 No Known Allergies; ld1 - PMHx: 12:38 Diabetes - IDDM; Hypertensive disorder; Myocardial infarction; ld1 - PSHx: 12:38 cardiac stent; Cholecystectomy; Coronary artery bypass graft; ld1 - Immunization history:: Adult Immunizations up to date, Client reports receiving the 2nd dose of the Covid vaccine. - Social history:: Smoking status: Patient denies any tobacco usage or history of. Patient/guardian denies using alcohol. - Family history:: not pertinent. ROS: 16:00 Constitutional: Negative for fever, chills, and weight loss, Eyes: Negative for injury, leonila pain, redness, and discharge, ENT: Negative for injury, pain, and discharge, Neck: Negative for injury, pain, and swelling, Cardiovascular: Negative for chest pain, palpitations, and edema, Respiratory: Negative for shortness of breath, cough, wheezing, and pleuritic chest pain, Back: Negative for injury and pain, : Negative for injury, bleeding, discharge, and swelling, MS/Extremity: Negative for injury and deformity, Skin: Negative for injury, rash, and discoloration, Neuro: Negative for headache, weakness, numbness, tingling, and seizure, Psych: Negative for depression, anxiety, suicide ideation, homicidal ideation, and hallucinations, Allergy/Immunology: Negative for hives, rash, and allergies, Endocrine: Negative for neck swelling, polydipsia, polyuria, polyphagia, and marked weight changes, Hematologic/Lymphatic: Negative for swollen nodes, abnormal bleeding, and unusual bruising. 16:00 Abdomen/GI: Positive for abdominal pain, of the right upper quadrant, with STACY drain in place. Exam: 16:00 Constitutional: This is a well developed, well nourished patient who is awake, alert, leonila and in no acute distress. Head/Face: Normocephalic, atraumatic. Eyes: Pupils equal round and reactive to light, extra-ocular motions intact. Lids and lashes normal. Conjunctiva and sclera are non-icteric and not injected. Cornea within normal limits. Periorbital areas with no swelling, redness, or edema. ENT: Nares patent. No nasal discharge, no septal abnormalities noted. Tympanic membranes are normal and external auditory canals are clear. Oropharynx with no redness, swelling, or masses, exudates, or evidence of obstruction, uvula midline. Mucous membranes moist. Neck: Trachea midline, no thyromegaly or masses palpated, and no cervical lymphadenopathy. Supple, full range of motion without nuchal rigidity, or vertebral point tenderness. No Meningismus. Chest/axilla: Normal chest wall appearance and motion. Nontender with no deformity. No lesions are appreciated. Cardiovascular: Regular rate and rhythm with a normal S1 and S2. No gallops, murmurs, or rubs. Normal PMI, no JVD. No pulse deficits. Respiratory: Lungs have equal breath sounds bilaterally, clear to auscultation and percussion. No rales, rhonchi or wheezes noted. No increased work of breathing, no retractions or nasal flaring. Back: No spinal tenderness. No costovertebral tenderness. Full range of motion. Male : Normal genitalia with no discharge or lesions. Skin: Warm, dry with normal turgor. Normal color with no rashes, no lesions, and no evidence of cellulitis. MS/ Extremity: Pulses equal, no cyanosis. Neurovascular intact. Full, normal range of motion. Neuro: Awake and alert, GCS 15, oriented to person, place, time, and situation. Cranial nerves II-XII grossly intact. Motor strength 5/5 in all extremities. Sensory grossly intact. Cerebellar exam normal. Normal gait. Psych: Awake, alert, with orientation to person, place and time. Behavior, mood, and affect are within normal limits. 16:00 Abdomen/GI: Inspection: abdomen appears normal, Bowel sounds: active, Palpation: abdomen is soft and non-tender, in the right upper quadrant, Liver: no appreciated palpable abnormalities, Hernia: not appreciated. Vital Signs: 12:36 BP 119 / 69; Pulse 78; Resp 18; Temp 98.6; Pulse Ox 95% on R/A; Weight 83.91 kg; Height ld1 5 ft. 4 in. (162.56 cm); Pain 0/10; 14:28 BP 117 / 65; Pulse 70; Resp 16; Pulse Ox 100% on R/A; em6 16:30 BP 122 / 72; Pulse 74; Resp 18; Pulse Ox 98% on R/A; em6 12:36 Body Mass Index 31.75 (83.91 kg, 162.56 cm) ld1 Procedures: 16:21 Performed biliary drain removed, without complication, dressed , patient tolerated well.[facility] MDM: 12:52 Patient medically screened. [facility] 16:02 Data reviewed: vital signs, nurses notes. [facility] 12/09 12:54 Order name: Dressing - Wound; Complete Time: 16:31 [facility] 12/09 12:54 Order name: Gloves, Sterile; Complete Time: 13:22 [facility] 12/09 12:54 Order name: Setup Suture Tray; Complete Time: 13:22 [facility] Administered Medications: 16:34 Not Given (Physician Discretion): Lidocaine (1 %) 10 ml 20 ml Infiltration once; to em6 bedside Disposition Summary: 12/09/21 16:21 Discharge Ordered Location: Home [facility] Problem: new leonila Symptoms: have improved leonila Condition: Stable leonila Diagnosis - Encounter for change or removal of drains - biliary leonila Followup: leonila - With: Private Physician - When: 2 - 3 days - Reason: Recheck today's complaints, Continuance of care, Re-evaluation by your physician Followup: leonila - With: Mitesh Hamm MD - When: 2 - 3 days - Reason: Recheck today's complaints, Continuance of care, Re-evaluation by your physician Discharge Instructions: - Discharge Summary Sheet [facility] - How to Change Your Wound Dressing leonila Forms: - Medication Reconciliation Form leonila - Thank You Letter leonila - Antibiotic Education leonila - Prescription Opioid Use leonila - Work release form em6 Signatures: Austin Caba MD MD cha Dibbern, Lauren, RN RN ld1 Nga Schuster RN RN em6
[2021-12-09 16:49] VITALS: TEMP 98.6
[2021-12-09 16:51] VITALS: BP 122/72; O2SAT 98
== END 2021-12-09 16:35 | disposition home or self-care (01) ==
LOC: ER 12:25
DX: Z48.03 Encounter for change or removal of drains (principal)
CPT/HCPCS: 99283